=== PATIENT | male | born 1985 | race Caucasian/White ===

== ENCOUNTER 2023-09-01 06:07 | Inpatient (IN) | payer BC, SELFPAY ==
[2023-09-01] VITALS (10 sets, daily range): BP systolic 99–136; BP diastolic 45–71; BMI 28.2; BMI 27.3
[2023-09-01 02:26] LABS: % Basophils 0.6 % (0-2); % Eosinophils 2.4 % (0-6); % Immature Granulocytes 0.3 % (0-0.5); % Lymphocytes 29.9 % (20.5-51.1); % Monocytes 5.5 % (1.7-9.3); % Neutrophils 61.3 % (42.2-75.2); Absolute Basophils 0.1 10^3/uL (0-0.2); Absolute Eosinophils 0.2 10^3/uL (0-0.7); Absolute Lymphocytes 2.3 10^3/uL (1.2-3.4); Absolute Monocytes 0.4 10^3/uL (0.1-0.6); Absolute Neutrophils 4.8 10^3/uL (1.4-6.5); Hematocrit 39.3 % (39.0-52.0); Hemoglobin 14.2 g/dL (13.0-18.0); Mean Corp Hgb Conc. 36.1 g/dL (33.0-37.0); Mean Corpuscular Hgb 30.3 pg (27.0-31.0); Mean Platelet Volume 10.6 fL (7.4-10.4); Nucleated Red Blood Cells % 0 % (-); Platelet Count 163 10^3/uL (130-400); Red Blood Cell Count 4.68 10^6/uL (4.70-6.10); Red Cell Dist. Width 13.2 % (11.5-14.5); White Blood Cell Count 7.8 10^3/uL (4.8-10.8)
[2023-09-01 02:50] LABS: ALT (SGPT) 46 U/L (0-50); AST (SGOT) 42 U/L (17-59); Albumin 4.1 g/dl (3.5-5.0); Alkaline Phosphatase 55 U/L (38-126); Blood Urea Nitrogen 26 mg/dl (9-20); Calcium 9.4 mg/dl (8.4-10.2); Carbon Dioxide 25 mmol/L (22-30); Chloride 107 mmol/L (98-107); Estimated Creatinine Clearance 103 ml/min; Glucose 116 mg/dl (70-99); Potassium 4.1 mmol/L (3.5-5.1); Sodium 139 mmol/L (135-145); Total Bilirubin 0.5 mg/dl (0.2-1.3); Total Protein 6.4 g/dl (6.3-8.2); eGFR > 60.00
--- NOTE | 2023-09-01 02:57 | ED.GENMED ---
History of Present Illness
General
Chief Complaint: Breathing Problem
Source: patient
Exam Limitations: none
Time Seen by Provider: 09/01/23 02:11
Nursing documentation reviewed up to this point in time: agreed with
Travel History
Have you had any contact with someone who has COVID-19?: No
Do you have any symptoms of coronavirus? Fever > 100 degrees, chills, cough, shortness of breath, sore throat, loss of taste or smell, muscle aches, or headache?: Yes
Symptoms:: SOB, cough
History of Present Illness
History of Present Illness:
38-year-old male presents to the emergency department complaining of an episode at 11:30 PM of mid sternal chest pain that lasted about 3 seconds, and feeling of bubbling sound from his lungs. He felt hoarse, short of breath and winded with
speaking. He had an oxygen saturation of 90% on arrival.
Past History
Past History
ED Past Medical History: CVA (Right frontal CVA and left parietal occipital CVA slight left sided weakness), HTN, Hypercholesterolemia, Valvular disease (Aortic valve endocarditis May 2016), Other (hemorrhoids) and Other (Bilateral CVA related
to septic emboli from aortic valve endocarditis May 2016)
ED Past Surgical History: Cardiac (Bovine aortic valve replacement 06/06/2016 due to endocarditis.)
Social History
Tobacco: Non-smoker
Alcohol: Occasional (Rare alcohol)
Drug: None
Personal: Single
Living: with family
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
Family History
Family History: Other (reviewed and non-contributory)
Review of Systems
Review of Systems
Allergies reviewed?: Yes
All Other Systems: Not applicable
Constitutional: Reports no symptoms
EENT: Reports no symptoms
Respiratory: Reports trouble breathing
Cardiac: Reports chest pain
ABD/GI: Reports no symptoms
: Reports no symptoms
Musculoskeletal: Reports no symptoms
Skin: Reports no symptoms
Neurological: Reports no symptoms
Endocrine: Reports no symptoms
Hematologic/Lymphatic: Reports no symptoms
Psychiatric: Reports no symptoms
Phy Exam
Physical Exam
Physical Exam:
Physical Exam
General: Afebrile
Neck: supple. no meningeal signs. normal posterior pharynx
Heart: s1/s2 regular rate and rhythm, no murmur. equal radial
pulses.
HEENT: Pupils equal round reactive to light, EOMI
Lungs: no acute respiratory distress. clear bilaterally
Abdomen: normal bowel sounds. not tender. no CVAT
Neuro: alert and oriented. no focal neurological deficits cranial nerves II through XII intact
Skin: no rash
Psychiatric: well kept. interactive and cooperative
Extremities: no edema. no calf tenderness. negative homans. good distal pulses
Course
Orders/Labs/Results
Orders:
Orders
09/01/23 02:00
ECG [Electrocardiogram (*1)] Urgent
Reason for Study: Chest Pain
Other Reason for Exam: breathing difficuties
09/01/23 02:01
EKG- Treatment ONCE
Chest [CR Chest - 2 Views ] Urgent
Comment:
Reason For Exam: difficulty breathing
09/01/23 02:20
Complete Blood Count/With Diff Urgent
Comprehensive Metabolic Panel Urgent
NT-proBNP Urgent
Comment: ADD ON
Troponin I Urgent
09/01/23 02:56
Add On- LAB Urgent
Tests Added?: pro bnp
CT Chest Pe Study Urgent
Comment:
Reason For Exam: short of breath, hypoxia
09/01/23 05:37
Admit/Transfer Patient As Directed
Co-Sign Provider:
Level of Care: Inpatient admission
Assign to:: Telemetry
Physician / Group: htay
Diagnosis: CP, SoB, abn chest CT as below
Reason for Telemetry: Chest Pain syndromes
Date to Stop Telemetry: 09/03/23
Time to Stop Telemetry: 11:00
Reason for Hospitalization: bilateral ground glass opacitis and interlobar septal thickening may be due to
interstitial and alveolar pul edema of Uncler etiology
Expected length of stay greater than two midnights?: Yes
ELOS- Estimated Length of Stay in days: 3
I certify the patient meets the requirements for IP care: Yes
09/01/23 05:39
Code Status As Directed
Resuscitation Status: Full Code
COVID-19 Antigen Urgent
Source: Nasal Swab
Procalcitonin Urgent
PCT Algorithmm Indication: Respiratory
Blood Culture Q30M
TERRELL Source: Blood/Venous
Specimen Description:
Blood Culture Q30M
TERRELL Source: Blood/Venous
Specimen Description:
09/03/23 11:00
DC Protocol for Telemetry ONCE
Abnormal Lab Results
09/01/23
02:20
RBC 4.68 L 10^6/uL
(4.70-6.10)
MPV 10.6 H fL
(7.4-10.4)
BUN 26 H mg/dl
(9-20)
Glucose 116 H mg/dl
(70-99)
Troponin I 0.039 H* ng/ml
09/01/23 02:20
09/01/23 02:20
Vital Signs
Initial and Last Documented VS:
Initial Vital Signs
Temp Pulse Resp BP Pulse Ox
98.6 F 76 20 103/54 90
09/01/23 01:55 09/01/23 01:55 09/01/23 01:55 09/01/23 01:55 09/01/23 01:55
Last Documented Vital Signs
Temp Pulse Resp BP Pulse Ox
98.6 F 62 20 115/55 95
09/01/23 01:55 09/01/23 05:30 09/01/23 05:30 09/01/23 03:00 09/01/23 05:30
MDM/Problems Addressed
Differential Diagnosis Includes:
CHF, PE, ACS
MDM/Problems Addressed:
38-year-old male with shortness of breath, no chest pain in ED. CT chest shows no signs of PE, alveolar edema.
Chronic conditions affecting care: Cardiomyopathy
Acute Exacerbation and/or Progression of Chronic Illness: Cardiomyopathy
*Radiology
Radiology exam reviewed: radiology read reviewed (CT chest shows no signs of PE, bilateral groundglass infiltrate)
*Pulse Oximetry
Patient hypoxic: no
*EKG
Interpreted by ED Provider?: Yes
EKG Intrepretation Date: 09/01/23
EKG Intrepretation Time: 02:05
Interpretation: abnormal
Comparison EKG: changes noted
Heart Rate: 71
Rate: normal
Rhythm: sinus
[place]: normal axis
Interval: normal interval
QRS Pattern: left vent hypertrophy
Ischemia: no ischemia
*Environmental Specialist Interpretation
Rate: normal
Interpretation: normal
Heart Rate: 72
Rhythm: sinus
*Critical Care Note
Total Time (30-74mins, 75-104mins- exclusive of procedures): Not Applicable
Data Reviewed
Review of Other/Old Records Reveals: Labs
Source: patient
Patient Management
Discussion with other providers: Hospitalist
Escalation/DeEscalation of care consider admission/obs:
Admit indicated
ED Attending Note
-
Portions of this chart may have been created with voice recognition software.� Occasional wrong word or��sound alike� substitutions may have occurred due to the inherent limitations of voice recognition software.
Discharge Plan
Departure
Patient Disposition: Admit
Date of Disposition: 09/01/23
Time of Disposition: 05:11
Admit to: IMU
Presentation/result/management discussed w/ accepting MD/DO: Hospitalist
Patient with high blood pressure during this ER visit?: No
Condition: Good
Discharge Problem:
Ground glass opacity present on imaging of lung, Hypoxia
Interventions
Interventions:
*Risk Screen - Suicide Last Done: 09/01/23 01:55
*General Assessment Last Done: 09/01/23 01:55
*Neglect/Abuse Screening Last Done: 09/01/23 01:55
ED- Fall Risk Assessment Last Done: 09/01/23 01:55
*ED COVID-19 Vaccine History Last Done: 09/01/23 01:55
ED- Cardiac Assessment Last Done: 09/01/23 02:29
ED- Pulmonary Assessment Last Done: 09/01/23 02:29
[2023-09-01 03:06] LABS: Troponin I 0.039 ng/ml
[2023-09-01 03:41] LABS: NT-proBNP 1070 pg/ml
--- NOTE | 2023-09-01 05:32 | HPS.HSE ---
Family Physician
-
Family Physician:
Chief Complaint
-
CP, SoB
History of Present Illness
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
Associated with SoB
POx low 90s with sitting
Medical History
Past Medical History
Past Medical History: Reports Other
Additional Past Medical History:
Bacteremia (Streptococcus mitis/oralis) Prosthetic valve endocarditis (bioprosthetic) Hx prior aortic valve endocarditis requiring valve replacement (2016; at [facility]) Bioprosthetic aortic valve replacement Prediabetes Transaminitis CVA (Right frontal
CVA and left parietal occipital CVA slight left side)
Past Surgical History: Reports Other
Additional Past Surgical History:
Cardiac (Bovine aortic valve replacement 06/06/2016 due to endocarditis.)
Social History
Tobacco: Non-smoker
Alcohol: Occasional
Personal: Single
Family History
Family History: Not pertinent
Allergies / Home Medications
Allergies reflects when Allergies were last updated in [employer].
Home Medications with original date entered in [employer]
Allergy/Medication List:
Allergies
Allergy/AdvReac Type Severity Reaction Status Date / Time
No Known Allergies Allergy Verified 09/01/23 02:24
Home Medications
atorvastatin 40 mg tablet 40 mg PO DAILY High Cholesterol 10/29/16
magnesium oxide 400 mg PO DAILY Electrolyte Repletion 10/29/16
metoprolol tartrate 25 mg tablet 12.5 mg PO BID Blood Pressure 10/29/16
ascorbic acid (vitamin C) 500 mg tablet (Vitamin C) 1,000 mg PO DAILY Supplement 06/26/21
levetiracetam 500 mg tablet 500 mg PO BID@0800,1300 Seizures 06/26/21
multivitamin with folic acid 400 mcg tablet (Tab-A-Miki) 1 tab PO DAILY Supplement 06/26/21
Review of Systems
-
Constitutional: Reports No Symptoms
EENT: Reports No Symptoms
Respiratory: Reports Trouble Breathing
Cardiac: Reports Chest Pain
Abdomen/GI: Reports No Symptoms
: Reports No Symptoms
Musculoskeletal: Reports No Symptoms
Skin: Reports No Symptoms
Neurological: Reports No Symptoms
Endocrine: Reports No Symptoms
Hematologic/Lymphatic: Reports No Symptoms
Psych: Reports No Symptoms
Physical Exam
Vital Signs
Vital Signs
Temp Pulse Resp BP Pulse Ox
98.6 F 63 26 115/55 93
09/01/23 01:55 09/01/23 04:00 09/01/23 04:00 09/01/23 03:00 09/01/23 04:00
Physical Exam
General: Well Developed, Well Nourished and No Apparent Distress
HEENT: NormoCephalic, Anicteric and Moist mucous membranes
Respiratory: Clear; No Wheezes
Cardiac: S1/S2 and Regular Rhythm
Breast: Deferred by me
GI: Soft, Non Tender, Non Distended and Normal Bowel Sounds
Rectal: Deferred by Provider
Genito-urinary: Deferred by me
Musculoskeletal: No Clubbing, No Cyanosis and No Edema
Skin: Warm
Neuro: AO x 3
Psych: Calm
Laboratory Results
-
09/01/23 02:20
09/01/23 02:20
Laboratory Results
Total Bilirubin 0.5 mg/dl (0.2-1.3) 09/01/23 02:20
AST 42 U/L (17-59) 09/01/23 02:20
ALT 46 U/L (0-50) 09/01/23 02:20
Alkaline Phosphatase 55 U/L (38-126) 09/01/23 02:20
Troponin I 0.039 ng/ml H* 09/01/23 02:20
Data Reviewed
-
CT Scan: Report Reviewed by me
Medical Tests (Nuc Med, Echo, EKG etc): Report Reviewed by me
Lab Data: Labs Reviewed by me
Old Records: Reviewed
Impression/Plan
-
Reviewed VS: afebrile, borderline hypotension HR low 60s RR 26 POx low 90s on RA
Data
Nl CBC
BUN 26
Cr 1.1
eGFR > 60
TPNI 0.039
pro BNP 1070
Pending PCT
CTA chest w IV contrast
No PE. No thoracic aneurysm or dissection
AoV prothesis
Bilateral ground glass opacitis and interlobar septal thickening may n[be due to interstitial and alveolar puledema
CM without pericardial effusion
EKG report
NORMAL SINUS RHYTHM
LEFT ATRIAL ENLARGEMENT
RIGHTWARD AXIS
LEFT VENTRICULAR HYPERTROPHY WITH QRS WIDENING AND REPOLARIZATION ABNORMALITY
ABNORMAL ECG
WHEN COMPARED WITH ECG OF 26-DEC-2022 21:41,SIGNIFICANT CHANGES HAVE OCCURRED
12/27/22 TTE
LVEF 70-75
-Small echodensity on the anterior mitral valve leaflet, which was seen before on previous study. Moderate, eccentric MR
27 mm bioprosthetic aortic valve with peak/mean gradients of 51/35 mmHg.
- Mild to moderate paravalvular aortic regurgitation (PHT = 383 ms).
-Mild to moderate tricuspid regurgitation. Estimated pulmonary artery pressure
of 25-30 mmHg.
-Sinus of Valsalva 3.9 cm. Ascending aorta is 4.1 cm.
- No significant change in overall cardiac function since the prior study of
06/27/2019. Transvalvular aortic gradients have slightly increased (previous
peak/mean gradients were 34/21 mmHg).
Last hospitalist admission: 12/27/22 - 12/29/22
Dx; Fever possibly viral versus tick related illness treated PO Doxycycline for 2 weeks
ASSESSMENT & PLAN
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
Abn TPNI - NMITE vs NSTEMI
Mildly eleavted proBNP
- Trend TPNI
- cont. Metoprolol
- CBC card consult
CTC show bilateral ground glass opacitis and interlobar septal thickening may be due to interstitial and alveolar pul edema
Uncler etiology
- check pro BNP
- check PCT
- check Covid
- O2 support ot keep POx > 94
- Pul consult
Acute tachypnea and marginal hypoxia on RA
Afebrile and normal WCC
HX prosthetic AoV endocarditis
HX Streptococcus mitis/oralis bacteremia in Jun 2021
Hx prior aortic valve endocarditis requiring valve replacement (2016; at [facility])
Bioprosthetic aortic valve replacement
- BCx x 2 in 30mins
- Observing off ABx
- ID consult
Reported Gurgling noise in the chest - spontaneously resolved
HX septic embolic stroke
- cont Lopressor and aspirin
- cont. Keppra
DVT prophylaxis with Lovenox
Full code
Ip TLM
[2023-09-01 06:02] LABS: COVID-19 Antigen Negative (Negative)
[2023-09-01 06:23] LABS: Procalcitonin < 0.05 ng/ml (0.0-0.25)
--- NOTE | 2023-09-01 07:15 | EDRN ---
the pt was received from the previous shift coordinator RN, the pt is resting in stretcher in the lowest position, side rails up x2, call copeland within reach, HOB elevated, no s/s of distress, no c/o chest pain, no c/o SOB, VS WNL, NSR in the 80's, 98% on
2L NC, awaiting for a bed for the pt
--- NOTE | 2023-09-01 07:32 | EDRN ---
this RN called the receiving unit and notified them that paper report was going to be tubed up
--- NOTE | 2023-09-01 07:45 | EDRN ---
the pt pressed the call copeland and this RN entered the pts room, the pt stated that he needed to use the bathroom, the pt was able to ambulate to the bathroom and back to the stretcher with no issues, the pt is resting in stretcher in the lowest
position, rails up x2, call copeland within reach, HOB elevated, the pts belongings are packed up and the pt is ready to go upstairs
[2023-09-01] MEDS: LIPITOR PO (09:20)
[2023-09-01] MEDS: KEPPRA 500 MG PO ×2 (09:21→14:02)
[2023-09-01] MEDS: LOPRESSOR 12.5 MG PO ×2 (09:21→20:29)
--- NOTE | 2023-09-01 10:14 | CON.CAR ---
Addendum entered and electronically signed by Seferino Seymour MD 09/01/23 13:08:
I saw and examined the patient.
The [employer]'s note was reviewed and I agree with the note.
Comment: 38 y/o pt followed by Dr. Galiciaated with [facility] . He has prior history of endocarditis and bio AVR in 2015. He was seen in 2017 and new CVA . He is here after an episode of chest pain yesterday evening. He tells me he was getting
ready to go to bed and that is when he felt this. That lasted less than 10 seconds and had some associated ' bubbling' in his chest and decided to present to the ED. He also has no other significant anginal symptoms and tells me he ran 2 miles
yesterday. He does have a significant history of aortic valve replacement and his troponin is positive here. Thus, I discussed with him heart catheterization on Sunday and TTE then as well. He is agreeable to this.
-Heparin drip, aspirin, lipid profile
-TTE Sunday heart catheterization Sunday
Original Note:
Consultation
Consultation Request
Date/Time Consultation Requested: 09/01/2023 0800
Date/Time Consultation Performed: 09/01/2023 0930
Requesting Provider: 09/01/23 1000
Performing Provider: Dr. Seymour
Reason for Consultation: CP
Medical History
-
Chief Complaint: CP
History of Present Illness:
38 y/o pt followed by Dr. Galiciaated with [facility] . He has prior history of endocarditis and bio AVR in 2015. He was seen in 2017 and new CVA . ALEJANDRO here with concern for MV vegetation ( blood cultures at that time were negative)and pt was
transferred to [place]. He returned to in 12/2022 with fevers. ID consulted, BCX were negative . Treated for viral illness vs tick related illness with doxy for 2 weeks. States he saw Dr. Hodge in Jul 2022 and was told things are stable. He runs
2 miles most days. Last run was yesterday without any issues. 08/31/23 1030-11 started with chest pressure and bubbling in chest. He thinks bubbling was from his stomach. Denies eating close to that time. It did not radiate. No SOB associated. He
thinks lasted 30min. Did not have it in ER. Denies recurrent symptoms this am. Troponin was abnormal and we are consulted.
Past Medical History
Past Medical History: Other (AVR 2016, MR, CVA, seizures ,prediabetes)
Past Surgical History: Other ( bio AVR 2015)
Social History
Tobacco: Non-Smoker
Alcohol: Occasional
Drug: None
Living: With Family
Family History
Family History: Reviewed & Not Pertinent
Allergies / Home Medications
Allergy/AdvReac Type Severity Reaction Status Date / Time
No Known Allergies Allergy Verified 09/01/23 02:24
Medication Instructions Recorded Confirmed Type
atorvastatin 40 mg tablet 40 mg PO DAILY High Cholesterol 10/29/16 09/01/23 History
magnesium oxide 400 mg PO DAILY Electrolyte 10/29/16 09/01/23 History
Repletion
metoprolol tartrate 25 mg tablet 12.5 mg PO BID Blood Pressure 10/29/16 09/01/23 History
ascorbic acid (vitamin C) 500 mg 1,000 mg PO DAILY Supplement 06/26/21 09/01/23 History
tablet (Vitamin C)
levetiracetam 500 mg tablet 500 mg PO BID@0800,1300 Seizures 06/26/21 09/01/23 History
multivitamin with folic acid 400 1 tab PO DAILY Supplement 06/26/21 09/01/23 History
mcg tablet (Tab-A-Miki)
Review of Systems
-
History Source: Patient
Constitutional: No Symptoms
EENT: No Symptoms
Respiratory: No Symptoms
Cardiac: Chest Pain ( chest pressure last pm )
Abdomen/GI: Other (bubbling last pm )
: No Symptoms
Musculoskeletal: No Symptoms
Physical Exam
Vital Signs
Temp Pulse Resp BP Pulse Ox
98.1 F 86 16 136/71 98
09/01/23 07:15 09/01/23 07:15 09/01/23 07:15 09/01/23 07:15 09/01/23 07:15
Lab Results
09/01/23 02:20
09/01/23 02:20
Troponin I 0.090 ng/ml H* D 09/01/23 09:08
Emv-C-Clcogiragqg Pept 1070 pg/ml 09/01/23 02:20
Physical Exam
General: Well Developed and No Apparent Distress
HEENT: Normocephalic and Moist Mucous Membranes
Respiratory: Clear
Cardiac: S1/S2, Regular Rhythm and Murmur (3/6 AIDA throughout )
Breast: Deferred by me
GI: Soft, Non Distended and Normal Bowel Sounds
Rectal: Deferred by Provider
Musculoskeletal: No Edema
Skin: Warm and Dry
Neuro: AO x 3
Psych: Calm
Impression / Plan
-
Chest pain :
-No current CP
-trend troponin
-abn EKG - repeat this am
-pt states no OP stress or LHC since his bio AVR
Bio AVR:
-follows with DR. Hodge at [facility] saw him 07/2023 and was stable
-Echo 12/2022 here EF 70-75,There is small echodensity on the anterior mitral valve leaflet, which was seen before on previous study. Moderate, eccentric mitral regurgitation.27 mm bioprosthetic aortic valve with peak/mean gradients of 51/35 mmHg.
Mild to moderate paravalvular aortic regurgitation (PHT = 383 ms).- to moderate tricuspid regurgitation. Estimated pulmonary artery pressure
of 25-30 mmHg.Sinus of Valsalva 3.9 cm. Ascending aorta is 4.1 cm.
Prior CVA:
-asa/statin
Seizures:
-keppra/neuro
Data Reviewed
-
EKG: Tracing Personally Visualized and interpreted (NSR 63 bpm, LVH)
Radiology: Report Reviewed by me (CT chest 09/01/23 no dissection, no pE, There is mild cardiomegaly with patchy groundglass airspace disease in both lungs which may be mild pulmonary edema or mild inflammatory airspace disease)
Medical Tests (Nuc Med, Echo etc): Report Reviewed by me (Echo as above )
Labs: Labs Reviewed by me, Discussed with Physician and Discussed with Patient
Old Records: Reviewed (Previous admission records)
[2023-09-01 11:41] LABS: Glycohemoglobin (HgbA1c) 5.3 % (4.0-5.6)
--- NOTE | 2023-09-01 11:56 | CON.ID ---
Consultation
-
Date/Time Consultation Requested: 09/01/2023, 0816
Date/Time Consultation Performed: 09/01/2023, 1200
Requesting Provider: Dr. Roderick Joseph
Performing Provider: Dr. Karina Michaels
Reason for Consultation: Chest pain, hx bio-prosthetic AV endocarditis
Chief Complaint / Past History
Chief Complaint
Chest pain
History of Present Illness
38 year old male with history of [place] AV IE s/o bio-AVR 2015, S. mitis bio-AVR IE (06/2021) s/p 6 weeks IV ceftriaxone, who experienced chest pressure last night. He also noted gurgling sound during breathing. He got worried and came to ED. No
fevers/chills. No COLLIER. No URI sxs. No N/V/D. Last dental work was 4 months ago which he took prophylactic antibiotic. The gurgling sound on chest has resolved. Otherwise feels well. He runs everyday.
Past History
Additional Past Medical History:
bicuspid AV endocarditis, CVA/septic emboli, seizure s/p bio-AVR 06/06/2016 (at [facility])
Strep mitis bioprosthetic AV endocarditis 06/24/2021 s/p 6 weeks ceftriaxone.
Allergy History:
No Known Allergies Allergy (Verified 09/01/23 02:24)
Medications Reviewed: Yes
Current Antibiotics:
none
Social History
Tobacco: Non-Smoker
Alcohol: None
Drug: None
Personal: Single
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
Family History
Family History: Not Pertinent
Review of Systems
Review of Systems
General: Negative Fever, Chills or Change in Appetite
HEENT: Negative Stiff Neck, Sinus Problems, Headache or Pharyngitis
Respiratory: Negative Dyspnea or Cough
Gasteroenterology: Other (no diarrhea); Negative Nausea or Vomiting
Genital / Urological: Negative Dysuria or Flank Pain
Endocrine: Negative Weakness
Musculoskeletal: Negative Arthralgias
Skin / Hair / Nails: Negative Rash
Neurological: Negative Headache or Dizziness
All systems: All other systems were reviewed and were negative
Vital Signs
Temp Pulse Resp BP Pulse Ox
98.1 F 61 16 105/53 98
09/01/23 07:15 09/01/23 10:45 09/01/23 07:15 09/01/23 08:10 09/01/23 07:15
Physical Exam
Physical Exam
Constitutional: No Acute Distress, Well Developed and Comfortable
Head: Other (No frontal or maxillary sinus tenderness)
Eyes: No Conjunctival Hemorrhage and Sclera Anicteric
Oral: No Thrush and No Ulcers
Cardiovascular: Regular Rate, S1/S2 and Murmur
Pulmonary: Clear
Gastrointestinal: Soft, Non Tender, Non Distended and Normal Bowel Sounds
Genito-Urinary: Negative CVA Tenderness
Extremities: Negative Edema, Splinter Hemorrhage or Jan[place]ay Lesions
Skin: Negative Rash
Neurological: AO x 3
Lab / Diagnostic Study Results
09/01/23 02:20
09/01/23 02:20
Abs Immat Gran (auto) 0.0 10^3/uL (0-0.05) 09/01/23 02:20
Absolute Neuts (auto) 4.8 10^3/uL (1.4-6.5) 09/01/23 02:20
Absolute Lymphs (auto) 2.3 10^3/uL (1.2-3.4) 09/01/23 02:20
Absolute Monos (auto) 0.4 10^3/uL (0.1-0.6) 09/01/23 02:20
Absolute Basos (auto) 0.1 10^3/uL (0-0.2) 09/01/23 02:20
Immature Gran % 0.3 % (0-0.5) 09/01/23 02:20
Neutrophils % 61.3 % (42.2-75.2) 09/01/23 02:20
Lymphocytes % 29.9 % (20.5-51.1) 09/01/23 02:20
Monocytes % 5.5 % (1.7-9.3) 09/01/23 02:20
Eosinophils % 2.4 % (0-6) 09/01/23 02:20
Basophils % 0.6 % (0-2) 09/01/23 02:20
Procalcitonin < 0.05 ng/ml (0.0-0.25) 09/01/23 05:39
Microbiology Results
Micro:
09/01/23 05:39 Blood Culture - Pending
Blood/Venous
09/01/23 05:39 Blood Culture - Pending
Blood/Venous
09/01/[address]: There is no central pulmonary embolism. Imaging for small peripheral pulmonary emboli is limited.
There is mild cardiomegaly with patchy groundglass airspace disease in both lungs which may be mild pulmonary edema or mild inflammatory airspace disease.
09/01/23 CXR: negative
Assessment / Plan
# Chest pressure
# hx of bio-AVR IE (2021) treated with 6 weeks CTX
- At this time, no signs and symptoms of IE
-Observe off abx.
-Follow blood cx's.
--- NOTE | 2023-09-01 12:44 | CON.PUL ---
Consultation
Consultation Request
Date/Time Consultation Requested: 09/01/2023
Date/Time Consultation Performed: 09/01/2023
Requesting Provider:
Performing Provider: Dr. Tom Longoria`
Reason for Consultation: Abnormal CT chest
Medical History
-
History of Present Illness:
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 Came to the hospital complaining of chest
pressure. Also felt some gurgling sounds in his chest. Denies any fevers, chills, purulent sputum production. Denies choking or gasping episodes. Denies any nausea vomiting or diarrhea.
Currently pulmonary sounds have resolved.
Patient runs every day and has Exercise capacity.
Denies weight loss, night sweats or fevers.
Past Medical History
Past Medical History: Other (See assessment and plan section)
Social History
Tobacco: Non-smoker
Alcohol: None
Drug: None
Personal: Single
Employment: Employed (Works at a [employer])
Family History
Family History: Reviewed & Not Pertinent
Allergies / Home Medications
Allergies
Allergy/AdvReac Type Severity Reaction Status Date / Time
No Known Allergies Allergy Verified 09/01/23 02:24
Home Medications
Medication Instructions Recorded Confirmed Last Taken Type
atorvastatin 40 mg tablet 40 mg PO DAILY High Cholesterol 10/29/16 09/01/23 06/26/21 History
magnesium oxide 400 mg PO DAILY Electrolyte 10/29/16 09/01/23 06/26/21 History
Repletion
metoprolol tartrate 25 mg tablet 12.5 mg PO BID Blood Pressure 10/29/16 09/01/23 06/26/21 History
ascorbic acid (vitamin C) 500 mg 1,000 mg PO DAILY Supplement 06/26/21 09/01/23 06/26/21 History
tablet (Vitamin C)
levetiracetam 500 mg tablet 500 mg PO BID@0800,1300 Seizures 06/26/21 09/01/23 06/26/21 History
multivitamin with folic acid 400 1 tab PO DAILY Supplement 06/26/21 09/01/23 06/26/21 History
mcg tablet (Tab-A-Miki)
Review of Systems
-
History Source: Patient
All other systems: Negative unless noted
Vitals / Labs / Diagnostic Testing
Vital Signs
Temp Pulse Resp BP Pulse Ox
98.3 F 61 18 105/53 97
09/01/23 12:02 09/01/23 12:02 09/01/23 12:02 09/01/23 08:10 09/01/23 12:02
Lab Data
09/01/23 02:20
09/01/23 02:20
Diagnostic Testing:
Physical Exam
-
HEENT: Normocephalic
Cardiovascular: S1/S2
Respiratory: Clear and Non-Labored Respirations
GI: Soft and Non Distended
Neurology: Awake, Alert, Oriented and No Motor Deficits
Skin: Warm
General: Comfortable
Assessment
-
Abnormal CT chest: Unclear etiology. Doubt infectious in etiology.
Negative procalcitonin
Afebrile without leukocytosis
09/01/[address]:�Reviewed, there is no central pulmonary embolism. Imaging for small peripheral pulmonary emboli is limited.
There is mild cardiomegaly with patchy groundglass airspace disease in both lungs which may be mild pulmonary edema or mild inflammatory airspace disease.
Chest pain/gurgling of the chest: Currently resolved
Mildly increased troponin/increased proBNP 1070
EKG: Normal sinus rhythm/left atrial lodgment/left ventricular hypertrophy with QRS widening. Anteroseptal infarct age undetermined.
Conditions present prior admission:
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
History of aortic valve replacement due to infective endocarditis 2016
Prior history of CVA/septic emboli and seizures
-
Echo 12/2022-report reviewed, EF 70-75,There is small echodensity on the anterior mitral valve leaflet, which was seen before on previous study. Moderate, eccentric mitral regurgitation.27 mm bioprosthetic aortic valve with peak/mean gradients of
51/35 mmHg. Mild to moderate paravalvular aortic regurgitation (PHT = 383 ms).- to moderate tricuspid regurgitation. Estimated pulmonary artery pressure
of 25-30 mmHg.Sinus of Valsalva 3.9 cm. Ascending aorta is 4.1 cm.
Assessment and plan:
Abnormal CT chest with mild patchy bilateral groundglass opacities.
Currently mostly asymptomatic from the pulmonary perspective chest pain and chest gurgling has resolved.
As of yesterday patient states that he had usual functional capacity, he ran for exercising as usual.
-
No pleural effusions, no interstitial changes, no mediastinal lymph nodes.
With increased proBNP mild increased troponins rule out cardiac etiology/mild pulmonary edema.
So far no evidence for infection, observe off antibiotics.
Changes not typical for interstitial lung disease.
I agree with repeat echocardiogram.-Cardiology correspondence reviewed.
Trend troponins
-
Will follow.
[2023-09-01] MEDS: LOW STRENGTH ASPIRIN 324 MG PO (12:52)
[2023-09-01 13:23] LABS: APTT 30.4 Sec (23.4-35.0)
[2023-09-01 13:47] LABS: Troponin I 0.117 ng/ml
[2023-09-01] MEDS: HEPARIN 4000 UNITS IV (14:00)
[2023-09-01] MEDS: HEPARIN 25000 UNITS/250 ML IV (14:04)
--- NOTE | 2023-09-01 14:55 | W.PN.HOSP.TC ---
Today's Communication/Plan
-
see outlined
Assessment / Plan
Assessment / Plan
Assessment:
Chest pain
- resolved
- trend trops; currently .117
- continue BB/ASA
- continue Statin; check lipids
- continue IV heparin
- Cath Sunday
GGO abnormality on CT
- CT: mild patchy bilateral ground-glass opacities
- Pulm evaluated, no specific intervention currently
- repeat CT outpatient with follow up
- BNP 1090; check Echo
HX prosthetic AoV endocarditis
HX Streptococcus mitis/oralis bacteremia� in Jun 2021
Hx prior aortic valve endocarditis requiring valve replacement (2015; at [facility])
Bioprosthetic aortic valve replacement
- follow BCx
- ID following; no concern for IE
HX septic embolic stroke
- continue ASA/Statin
DVT ppx: IV heparin
Code: Full
Anticipated Discharge: > 48 hours
Subjective/Interval History
-
Date of Service: September 01, 2023
denies any cp or sob
Objective Data
-
Labs:
Laboratory Results
09/01/23 09/01/23
13:04 20:15
APTT 30.4 Pending
Vital Signs:
Vital Signs
Temp Pulse Resp BP Pulse Ox
98.3 F 61 18 105/53 97
09/01/23 12:02 09/01/23 12:02 09/01/23 12:02 09/01/23 08:10 09/01/23 12:02
Physical Exam
-
General: No Apparent Distress
HEENT: Normocephalic and Atraumatic
Respiratory: Negative Wheezes or Rales
Cardiac: Regular Rhythm, S1/S2 and Murmur
GI: Soft and Nontender
Musculoskeletal: No Edema
Neuro: AO x 3
Psych: Calm
Data Reviewed
-
Total Time Spent with Patient (in minutes): 45
Labs: Labs Reviewed by me
[2023-09-01 17:35] LABS: Troponin I 0.096 ng/ml
[2023-09-02] VITALS (7 sets, daily range): BP systolic 105–118; BP diastolic 46–66; BMI 27.3
[2023-09-02] MEDS: HEPARIN 25000 UNITS/250 ML IV ×2 (04:07→17:48)
[2023-09-02 04:27] LABS: Hematocrit 43.5 % (39.0-52.0); Mean Corp Hgb Conc. 34.5 g/dL (33.0-37.0); Mean Corpuscular Hgb 29.8 pg (27.0-31.0); Mean Corpuscular Volume 86.5 fL (80.0-94.0); Mean Platelet Volume 10.9 fL (7.4-10.4); Platelet Count 161 10^3/uL (130-400); Red Blood Cell Count 5.03 10^6/uL (4.70-6.10); Red Cell Dist. Width 13.2 % (11.5-14.5); White Blood Cell Count 7.8 10^3/uL (4.8-10.8)
[2023-09-02 04:39] LABS: APTT 48.9 Sec (23.4-35.0)
[2023-09-02 05:03] LABS: ALT (SGPT) 41 U/L (0-50); AST (SGOT) 26 U/L (17-59); Albumin 3.9 g/dl (3.5-5.0); Alkaline Phosphatase 55 U/L (38-126); Blood Urea Nitrogen 19 mg/dl (9-20); Calcium 8.8 mg/dl (8.4-10.2); Carbon Dioxide 24 mmol/L (22-30); Chloride 111 mmol/L (98-107); Estimated Creatinine Clearance 113 ml/min; Glucose 110 mg/dl (70-99); HDL Cholesterol 53 mg/dl; LDL Cholesterol, Calculated 68 mg/dl; Potassium 4.1 mmol/L (3.5-5.1); Sodium 137 mmol/L (135-145); Total Bilirubin 0.8 mg/dl (0.2-1.3); Total Cholesterol 134 mg/dl (50-199); Total Protein 6.1 g/dl (6.3-8.2); Triglyceride 66 mg/dl (10-149); Very Low Density Lipoprotein 13 mg/dl (0-30); eGFR > 60.00
--- NOTE | 2023-09-02 05:23 | PTCARENOTE ---
Pt w/o complaints this shift. POC discussed - pt verbalized understanding. heparin gtt running as documented.
--- NOTE | 2023-09-02 08:12 | W.PN.CD ---
Today's Communication / Plan
-
heparin gtt, aspirin, NPO after midnight, and cath tomorrow
Impression / Plan
-
38 y/o pt followed by Dr. Hodge�associated with [facility] . He has prior history of endocarditis and bio AVR in 2015. He was seen in 2017 and new CVA .� He is here after an episode of chest pain evening of August 31, 2023.
Chest pain :
-Troponin peaked at ~.11
- aspirin 81 mg
- heparin gtt, npo after midnight, cath tomorrow
- TTE tomorrow'
- statin
Bio AVR:
-follows with DR. Hodge at [facility] saw him 07/2023 and was stable
-Echo 12/2022 here EF 70-75,There is small echodensity on the anterior mitral valve leaflet, which was seen before on previous study. Moderate, eccentric mitral regurgitation.27 mm bioprosthetic aortic valve with peak/mean gradients of 51/35 mmHg.
Mild to moderate paravalvular aortic regurgitation (PHT = 383 ms).- to moderate tricuspid regurgitation. Estimated pulmonary artery pressure
of 25-30 mmHg.Sinus of Valsalva 3.9 cm. Ascending aorta is 4.1 cm.
Prior CVA:
-asa/statin
Seizures:
-keppra/neuro
Physical Exam
Vital Signs/Labs
Vital Signs
Temp Pulse Resp BP Pulse Ox
98 F 62 20 105/58 98
09/02/23 07:33 09/02/23 05:00 09/02/23 07:33 09/02/23 04:03 09/02/23 07:33
09/01/23 09/02/23 09/03/23
06:59 06:59 06:59
Actual Weight 213 lb 10.047 oz 207 lb 3.752 oz
09/02/23 04:13
09/02/23 04:13
APTT 48.9 Sec (23.4-35.0) H 09/02/23 04:13
Triglycerides 66 mg/dl (10-149) 09/02/23 04:13
LDL Cholesterol, Calc 68 mg/dl 09/02/23 04:13
VLDL Cholesterol, Calc 13 mg/dl (0-30) 09/02/23 04:13
HDL Cholesterol 53 mg/dl 09/02/23 04:13
09/01/23
02:20
Tkd-I-Fftdodrpsbn Pept 1070
LAB Results
09/01/23 09/01/23 09/01/23
02:20 09:08 11:16
Troponin I 0.039 H* 0.090 H* D Cancelled
09/01/23 09/01/23 09/01/23
13:04 14:16 16:51
Troponin I 0.117 H* D Cancelled 0.096 H*
Physical Exam
Constitutional: No acute distress
EENT: Anicteric
Cardiovascular: Rhythm & rate is regular and Pedal edema is absent
Respiratory: Respiratory effort normal and Lungs clear to auscul.
GI: Soft
Neuro/Psych: AO x 3
Data Reviewed
-
Date of Service: September 02, 2023
EKG: Tracing Personally Visualized and interpreted
Labs: Labs Reviewed by me
[2023-09-02] MEDS: KEPPRA 500 MG PO ×2 (08:49→12:29)
[2023-09-02] MEDS: LOPRESSOR 12.5 MG PO ×2 (08:49→19:33)
[2023-09-02] MEDS: LIPITOR 40 MG PO (08:49)
[2023-09-02] MEDS: LOW STRENGTH ASPIRIN 81 MG PO (08:50)
[2023-09-02 11:38] LABS: APTT 65.1 Sec (23.4-35.0)
--- NOTE | 2023-09-02 12:17 | W.PN.HOSP.TC ---
Today's Communication/Plan
-
IV heparin
Cath and TTE Sunday
Assessment / Plan
Assessment / Plan
Assessment:
Chest pain
- resolved
- trend trops; currently .117
- continue BB/ASA
- continue Statin; check lipids
- continue IV heparin - requires intensive monitoring
- Cath Sunday
GGO abnormality on CT
- CT: mild patchy bilateral ground-glass opacities
- Pulm evaluated, no specific intervention currently; repeat CT outpatient with follow up
- BNP 1090; check Echo Sunday
HX prosthetic AoV endocarditis
HX Streptococcus mitis/oralis bacteremia� in Jun 2021
Hx prior aortic valve endocarditis requiring valve replacement (2015; at [facility])
Bioprosthetic aortic valve replacement
- follow BCx
- ID following; no concern for IE
HX septic embolic stroke
- continue ASA/Statin
DVT ppx: IV heparin
Code: Full
Anticipated Discharge: 24 - 48 hours
Subjective/Interval History
-
Date of Service: September 02, 2023
denies any chest pain or SOB
Objective Data
-
Labs:
Laboratory Results
09/02/23 09/02/23 09/02/23
04:13 11:17 18:00
WBC 7.8
Hgb 15.0
Hct 43.5
Plt Count 161
APTT 48.9 H 65.1 H Pending
Sodium 137
Potassium 4.1
Chloride 111 H
Carbon Dioxide 24
BUN 19
Creatinine 1.0
Glucose 110 H
Calcium 8.8
Total Bilirubin 0.8
AST 26
ALT 41
Alkaline Phosphatase 55
Vital Signs:
Vital Signs
Temp Pulse Resp BP Pulse Ox
98.2 F 64 18 112/46 98
09/02/23 11:44 09/02/23 11:44 09/02/23 11:44 09/02/23 11:44 09/02/23 08:30
I&O
09/01/23 09/02/23 09/03/23
06:59 06:59 06:59
Intake Total 600 / 600
Balance 600 / 600
Physical Exam
-
General: No Apparent Distress
HEENT: Normocephalic and Atraumatic
Respiratory: Negative Wheezes or Rales
Cardiac: Regular Rhythm and S1/S2
GI: Soft and Nontender
Genito-urinary: No Costovertebral Tender
Neuro: AO x 3
Psych: Calm
Data Reviewed
-
Total Time Spent with Patient (in minutes): 45
Labs: Labs Reviewed by me
[2023-09-02 18:21] LABS: APTT 65.7 Sec (23.4-35.0)
--- NOTE | 2023-09-02 20:46 | PTCARENOTE ---
Pt received start of shift, HR SR 60s-70s. Pt ambulating in room independently. Heparin infusing at 2000 units/hr. Educated pt on NPO status at 0000. Pt wondering what time he will go for cath, but states no other questions regarding cath procedure
tomorrow. Pt denies any CP, SOB, or lightheadedness/dizziness at this time. Informed to notify RN if any changes, call copeland within reach.
[2023-09-03] VITALS (16 sets, daily range): BP systolic 91–116; BP diastolic 30–92; BMI 27.1
[2023-09-03 01:04] LABS: APTT 79.5 Sec (23.4-35.0)
--- NOTE | 2023-09-03 06:11 | W.PN.PUL3 ---
Today's Communication / Plan
-
Catheterization pending today
Echocardiogram pending
Remains on heparin
Assessment
-
Abnormal CT chest: Unclear etiology. Doubt infectious in etiology.
Negative procalcitonin
Afebrile without leukocytosis
09/01/[address]:�Reviewed, there is no central pulmonary embolism. Imaging for small peripheral pulmonary emboli is limited.
There is mild cardiomegaly with patchy groundglass airspace disease in both lungs which may be mild pulmonary edema or mild inflammatory airspace disease.
Chest pain/gurgling of the chest: Currently resolved
Mildly increased troponin/increased proBNP 1070
EKG: Normal sinus rhythm/left atrial lodgment/left ventricular hypertrophy with QRS widening. Anteroseptal infarct age undetermined.
Conditions present prior admission:
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
History of aortic valve replacement due to infective endocarditis 2015
Prior history of CVA/septic emboli and seizures
Assessment and plan:
At this time, patient is comfortable without complaints. Pulmonary symptoms have improved, not requiring oxygen
Chest exam is clear
I reviewed his CT imaging. Calcified right lower lobe nodule noted, likely granuloma
Patchy bilateral groundglass abnormalities
No obvious adenopathy
Moving forward
Continue with management primarily cardiac in nature
Do not suspect infectious process, did not suspect chronic interstitial process
Patient is on heparin drip, aspirin therapy
N.p.o., plan for catheterization today
Echocardiogram pending
Cardiology following
Further workup will depend on catheterization findings
Will follow.
Data:
Echo 12/2022-report reviewed, EF 70-75,There is small echodensity on the anterior mitral valve leaflet, which was seen before on previous study. Moderate, eccentric mitral regurgitation.27 mm bioprosthetic aortic valve with peak/mean gradients of
51/35 mmHg. Mild to moderate paravalvular aortic regurgitation (PHT = 383 ms).- to moderate tricuspid regurgitation. Estimated pulmonary artery pressure
of 25-30 mmHg.Sinus of Valsalva 3.9 cm. Ascending aorta is 4.1 cm.
Subjective Data
-
Date of Service:
Date of Service: September 03, 2023
Subjective:
Patient feels much improved. Denies chest pain, cough, hemoptysis, abdominal pain, nausea, emesis. On room air. Conversant
Objective Data
Data Reviewed
Vital Signs / I&O / Oxygen:
Vital Signs
Temp Pulse Resp BP Pulse Ox
98.5 F 64 16 109/59 96
09/03/23 03:57 09/03/23 03:57 09/03/23 03:57 09/03/23 03:57 09/03/23 03:57
Intake and Output
09/01/23 09/02/23 09/03/23
06:59 06:59 06:59
Intake Total 600 / 600
Balance 600 / 600
SaO2 96
Nasal Cannula flow liters per 2
minute
Physical Exam
General: Comfortable
HEENT: Normocephalic and Anicteric
Cardiovascular: S1-S2, Regular Rhythm, Murmur (n) and Rub (n)
Respiratory: Wheeze (n), Crackles (n), Rhonchi (n) and Non-Labored Respirations
GI: Soft, Non Distended and Non Tender
Neurology: Awake, Alert and No Motor Deficits
Skin: Cyanosis (n), Jaundice (n) and Rash (n)
Labs/Micro/Reports
Laboratory Results
09/02/23 09/02/23 09/03/23
11:17 17:58 00:28
APTT 65.1 H 65.7 H 79.5 H
Microbiology
09/01/23 05:39 Blood/Venous Blood Culture - Preliminary
No Growth in 48 hours- Final report to follow
09/01/23 05:39 Blood/Venous Blood Culture - Preliminary
No Growth in 48 hours- Final report to follow
[2023-09-03 06:47] LABS: Hemoglobin 14.9 g/dL (13.0-18.0); Mean Corp Hgb Conc. 35.5 g/dL (33.0-37.0); Mean Corpuscular Volume 84.7 fL (80.0-94.0); Platelet Count 157 10^3/uL (130-400); Red Blood Cell Count 4.96 10^6/uL (4.70-6.10); White Blood Cell Count 8.5 10^3/uL (4.8-10.8)
[2023-09-03 06:51] LABS: APTT 83.4 Sec (23.4-35.0)
[2023-09-03 07:04] LABS: ALT (SGPT) 59 U/L (0-50); AST (SGOT) 31 U/L (17-59); Albumin 3.8 g/dl (3.5-5.0); Alkaline Phosphatase 58 U/L (38-126); Blood Urea Nitrogen 16 mg/dl (9-20); Calcium 8.8 mg/dl (8.4-10.2); Carbon Dioxide 25 mmol/L (22-30); Chloride 109 mmol/L (98-107); Estimated Creatinine Clearance 113 ml/min; Glucose 100 mg/dl (70-99); Potassium 4.3 mmol/L (3.5-5.1); Sodium 135 mmol/L (135-145); Total Bilirubin 1.2 mg/dl (0.2-1.3); eGFR > 60.00
[2023-09-03] MEDS: HEPARIN 25000 UNITS/250 ML IV (07:40)
[2023-09-03] MEDS: LIPITOR 40 MG PO (07:45)
[2023-09-03] MEDS: LOW STRENGTH ASPIRIN 81 MG PO (07:45)
[2023-09-03] MEDS: KEPPRA 500 MG PO ×2 (07:49→14:02)
[2023-09-03] MEDS: LOPRESSOR 12.5 MG PO ×2 (07:49→19:31)
--- NOTE | 2023-09-03 07:51 | PTCARENOTE ---
Patient received from nightshift nurse. Patient is alert and oriented x4, pleasant. Denies pain/discomfort. NSR/SB. HR 50s-60s. BP 101/50. Audible heart tones. Palpable pulses. No edema. PIV maintained. Heparin gtt maintained at 2000 units/hr.
Recent PTT shows he is therapeutic x2. RA. Oxygen saturation 93%. Upon auscultation, lung sounds clear throughout. NPO since midnight for cath today. Hypoactive BS. Per patient, BM this AM. Voids spontaneously. Ambulates in room independently.
Awaiting cath procedure.
--- NOTE | 2023-09-03 08:43 | W.PN.CD ---
Today's Communication / Plan
-
Echocardiogram.
Cardiac catheterization today.
Impression / Plan
-
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
possibly tick borne illness), admitted with an episode of chest pain on the evening of 08/31/2023 with mildly elevated troponin.
#Atypical chest pain
-Described as a 'gurgling', now resolved.
-Troponin peaked at 0.117.
-EKG shows 1st degree AVB and RBBB (progressed from prior EKG) with anteroseptal ID, age undetermined.
-Continue aspirin, atorvastatin, heparin gtt, metoprolol.
-Echocardiogram pending.
-Cardiac catheterization today for clarification of coronary anatomy.
#Hx of infectious endocarditis/bioprosthetic SAVR
-Follows with DR. Hodge at [facility] saw him 07/2023 and was stable.
-Blood cultures show NGTD.
-TTE from 12/2022 shows moderate , mild/moderate PVL.
-Repeat echocardiogram is pending.
#Prior CVA
-Chronic, stable.
-Continue ASA/statin.
#Seizures:
-Chronic, stable.
-Levetiracetam/neurology follow up.
Subjective/Interval History:
No acute events.
No subjective complaints.
DATA:
CT Chest, 09/04/2023:
IMPRESSION:
There is no central pulmonary embolism.
Imaging for small peripheral pulmonary emboli is limited.
There is mild cardiomegaly with patchy groundglass airspace disease in both lungs which may be mild pulmonary edema or mild inflammatory airspace disease
TTE, 12/27/2022:
CONCLUSIONS
�-Left ventricular ejection fraction is 70-75%. Normal regional wall motion.
�-Normal right ventricular size and function.
�-There is small echodensity on the anterior mitral valve leaflet, which was
�seen before on previous study. Moderate, eccentric mitral regurgitation.
�-27 mm bioprosthetic aortic valve with peak/mean gradients of 51/35 mmHg. Mild
�to moderate paravalvular aortic regurgitation (PHT = 383 ms).
�-Mild to moderate tricuspid regurgitation. Estimated pulmonary artery pressure
�of 25-30 mmHg.
�-Sinus of Valsalva 3.9 cm. Ascending aorta is 4.1 cm.
�
�No significant change in overall cardiac function since the prior study of
�06/27/2019.� Transvalvular aortic gradients have slightly increased (previous
�peak/mean gradients were 34/21 mmHg).
Physical Exam
Vital Signs/Labs
Vital Signs
Temp Pulse Resp BP Pulse Ox
36.6 C 59 16 101/50 93
09/03/23 07:05 09/03/23 07:49 09/03/23 07:05 09/03/23 07:49 09/03/23 07:05
09/01/23 09/02/23 09/03/23
11:59 11:59 11:59
Actual Weight 94 kg 94 kg 93 kg
09/03/23 06:16
09/03/23 06:16
APTT 83.4 Sec (23.4-35.0) H 09/03/23 06:16
Triglycerides 66 mg/dl (10-149) 09/02/23 04:13
LDL Cholesterol, Calc 68 mg/dl 09/02/23 04:13
VLDL Cholesterol, Calc 13 mg/dl (0-30) 09/02/23 04:13
HDL Cholesterol 53 mg/dl 09/02/23 04:13
09/01/23
02:20
Dfo-W-Cckpsklottc Pept 1070
LAB Results
09/01/23 09/01/23 09/01/23
02:20 09:08 11:16
Troponin I 0.039 H* 0.090 H* D Cancelled
09/01/23 09/01/23 09/01/23
13:04 14:16 16:51
Troponin I 0.117 H* D Cancelled 0.096 H*
Physical Exam
Constitutional: No acute distress and Comfortable
EENT: Anicteric and Moist mucous membranes
Cardiovascular: Rhythm & rate is regular, Pedal edema is absent, JVD pressure is normal, Systolic murmur present and S1S2 is normal
Respiratory: Respiratory effort normal, Lungs clear to auscul., Wheeze Absent, Crackles Absent and Rhonchi Absent
GI: Soft, Distention absent, Flat, Non tender and Normal bowel sounds
Neuro/Psych: AO x 3
Data Reviewed
-
Date of Service: September 03, 2023
Medical Decision Making: Reviewed Test Results, Independent Historian Assessment, Test Interpretation and Review of Case with other Provider
EKG: Tracing Personally Visualized and interpreted and Report Reviewed by me
Echo: Report Reviewed by me
X-Ray/CT/US/MRI/NUC/PET: Image Personally Visualized and interpreted and Report Reviewed by me
Medical Tests (PFT, Pathology etc): Report Reviewed by me
Labs: Labs Reviewed by me
--- NOTE | 2023-09-03 11:49 | CM ---
Chart reviewed. Patient is independent of ADLS, lives alone in a [address], [address], on his parent's property, 0 DME. Patient currently with no discharge needs. CM to follow
--- NOTE | 2023-09-03 11:54 | W.PN.HOSP.TC ---
Today's Communication/Plan
-
ECHO
Cardiac cath today
Assessment / Plan
Assessment / Plan
Assessment:
Chest pain
- resolved
- trending down trops; peak .117
- continue BB/ASA
- continue Statin; check lipids
- continue IV heparin - requires intensive monitoring
- Cardiac cath today
GGO abnormality on CT
- CT: mild patchy bilateral ground-glass opacities
- Pulm evaluated, no specific intervention currently; repeat CT outpatient with follow up
- BNP 1090; check Echo today
HX prosthetic AoV endocarditis
HX Streptococcus mitis/oralis bacteremia� in Jun 2021
Hx prior aortic valve endocarditis requiring valve replacement (2016; at [facility])
Bioprosthetic aortic valve replacement
- follow BCx
- ID following; no concern for IE
HX septic embolic stroke
- continue ASA/Statin
DVT ppx: IV heparin
Code: Full
Anticipated Discharge: Today
Subjective/Interval History
-
Date of Service: September 03, 2023
No CP
No SOB
No N/V
Objective Data
-
Labs:
Laboratory Results
09/03/23 09/03/23
00:28 06:16
WBC 8.5
Hgb 14.9
Hct 42.0
Plt Count 157
APTT 79.5 H 83.4 H
Sodium 135
Potassium 4.3
Chloride 109 H
Carbon Dioxide 25
BUN 16
Creatinine 1.0
Glucose 100 H
Calcium 8.8
Total Bilirubin 1.2
AST 31
ALT 59 H
Alkaline Phosphatase 58
Vital Signs:
Vital Signs
Temp Pulse Resp BP Pulse Ox
97.9 F 71 16 101/50 93
09/03/23 07:05 09/03/23 09:00 09/03/23 07:05 09/03/23 07:49 09/03/23 08:00
I&O
09/02/23 09/03/23 09/04/23
06:59 06:59 06:59
Intake Total 600 / 600 80 / 80
Balance 600 / 600 80 / 80
Review of Systems
-
Constitutional: Denies Fever
EENT: Denies Sore Throat
Neuro: Denies Dizzy
Physical Exam
-
General: No Apparent Distress
HEENT: Moist Mucous Membranes
Respiratory: Clear to Auscultation
Cardiac: Regular Rhythm and S1/S2; Negative Tachycardic
GI: Soft
Neuro: AO x 3
Data Reviewed
-
Labs: Labs Reviewed by me
--- NOTE | 2023-09-03 12:55 | PTCARENOTE ---
Pt went to [facility]. Report given to RN. Heparin gtt stopped at 1255.
--- NOTE | 2023-09-03 13:38 | ITS.CL.CATH ---
[facility] - Catheterization
Cardiac Catheterization
Procedure Report:
CARDIAC CATHETERIZATION REPORT
Date of Procedure: 09/03/2023
Referring: Seferino Seymour M.D.
INDICATION: Prosthetic aortic valve, chest discomfort, abnormal troponin.
PROCEDURE:
1. Coronary angiography.
ACCESS:
6 [place] right radial artery.
CATHETERS:
1. 5 [place] JR4.
2. 5 [place] JL 4.
HEMODYNAMIC DATA
Weight (kg): 93.0
AO (s/d/x, mmHg): 98/57/76
LV (s/x mmHg): Not obtained.
LEFT VENTRICULOGRAPHY: Not performed.
CORONARY ANGIOGRAPHY
Dominance: Left.
Left Main: Large size, bifurcating vessel. There is no coronary artery disease.
LAD: Large size vessel giving rise to several small diagonals before wrapping around the apex of the heart. There is no coronary artery disease.
Ramus: Congenitally absent.
Circumflex: Large size, dominant vessel giving rise to 3 obtuse marginals then terminating as an LPDA. There is no coronary artery disease.
RCA: Small size, nondominant vessel. There is no coronary artery disease.
INTERVENTION(S)
None.
Closure Device: Vascular band.
Radiation (mGy): 328.67
DAP (cm2.Gy): 27.4128
Fluoroscopy time (minutes): 2.7
Sedation time (minutes): 21
CONCLUSIONS
1. Left dominant circulation with no coronary artery disease.
2. Bioprosthetic aortic valve in place.
RECOMMENDATIONS:
1. Expectant management after cardiac catheterization via right radial approach.
2. Limited weight bearing on the right wrist for one week.
3. Given recent discovery of bioprosthetic aortic valve vegetation, plan for ALEJANDRO tomorrow.
Copy to: Seferino Seymour M.D., TO Guzman
Bryan Baptiste, , FACC, FACP
--- NOTE | 2023-09-03 13:51 | PTCARENOTE ---
Addendum entered by Rona Gore RN 09/03/23 13:52:
Agree with previous bingo attendant. Pt AOx3, no complaints of pain or discomfort.
Original Note:
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 Right radial site CDI. Educated on restrictions and expected OOB time. Call [facility]eland within reach.
--- NOTE | 2023-09-03 15:42 | W.PN.UPDATE ---
Update Note
Progress Note Update
Transthoracic echocardiogram shows a fairly large echodensity on the ventricular aspect of the bioprosthetic valve. This may be present but underappreciated on the prior echocardiogram from December 2022. Regardless, it is larger today. Aortic
insufficiency has worsened to severe. There is now moderate mitral regurgitation.
Cardiac catheterization shows no coronary artery disease. EKG during this admission shows first-degree AV block with right bundle branch block. Electrocardiogram from February 2023 shows a normal GA interval and an incomplete right bundle branch
block. Obviously, progression of conduction delays concerning for abscess.
Given echocardiographic and EKG findings, I think it is appropriate to make the patient n.p.o. for ALEJANDRO tomorrow. The patient may require expedited removal of his bioprosthetic AVR.
CT surgery consult.
--- NOTE | 2023-09-03 15:48 | PTCARENOTE ---
Assumed care of pt from day RN. Pt received sleepy but arousable. VSS, CM shows NSR 60's, POX 99% on RA. Right radial band intact, site remains CDI with good CMS. He denies any pain or discomfort. Will continue to monitor closely.
--- NOTE | 2023-09-04 00:10 | PTCARENOTE ---
Pt received start of shift, HR 60s-70s SR w/ BBB. Pt in bed with parents at bedside. Pt expressed disappointment with news he will probably need further surgery. Educated pt and family on plan of care. Pt states they would like to go home for 'an
hour or two to get [his] computer and then come back' if he is to stay in the hospital until his next procedure. Educated pt on hospital policy. Pt denies any CP, SOB, or lightheadedness/dizziness at this time. Informed to notify RN if any changes,
call [facility] within reach.
[2023-09-04 05:24] VITALS: BP 103/47
[2023-09-04 05:44] VITALS: BMI 27.0
[2023-09-04 06:39] LABS: Hematocrit 41.1 % (39.0-52.0); Hemoglobin 14.4 g/dL (13.0-18.0); Mean Corpuscular Hgb 29.6 pg (27.0-31.0); Mean Corpuscular Volume 84.6 fL (80.0-94.0); Platelet Count 158 10^3/uL (130-400); Red Blood Cell Count 4.86 10^6/uL (4.70-6.10); Red Cell Dist. Width 13.1 % (11.5-14.5); White Blood Cell Count 7.7 10^3/uL (4.8-10.8)
[2023-09-04 07:00] LABS: ALT (SGPT) 64 U/L (0-50); AST (SGOT) 32 U/L (17-59); Albumin 3.7 g/dl (3.5-5.0); Alkaline Phosphatase 58 U/L (38-126); Blood Urea Nitrogen 19 mg/dl (9-20); Calcium 8.9 mg/dl (8.4-10.2); Carbon Dioxide 24 mmol/L (22-30); Chloride 109 mmol/L (98-107); Estimated Creatinine Clearance 103 ml/min; Glucose 89 mg/dl (70-99); Potassium 4.4 mmol/L (3.5-5.1); Sodium 135 mmol/L (135-145); eGFR > 60.00
--- NOTE | 2023-09-04 07:05 | W.PN.PUL3 ---
Today's Communication / Plan
-
Await ALEJANDRO
Possible CT surgery plans noted
We will follow as needed in ICU setting if needed
Call with questions in interim
Assessment
-
Abnormal CT chest: Unclear etiology. Doubt infectious in etiology.
Negative procalcitonin
Afebrile without leukocytosis
09/01/[address]:�Reviewed, there is no central pulmonary embolism. Imaging for small peripheral pulmonary emboli is limited.
There is mild cardiomegaly with patchy groundglass airspace disease in both lungs which may be mild pulmonary edema or mild inflammatory airspace disease.
Chest pain/gurgling of the chest: Currently resolved
Mildly increased troponin/increased proBNP 1070
EKG: Normal sinus rhythm/left atrial lodgment/left ventricular hypertrophy with QRS widening. Anteroseptal infarct age undetermined.
Conditions present prior admission:
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
History of aortic valve replacement due to infective endocarditis 2015
Prior history of CVA/septic emboli and seizures
Assessment and plan:
At this time, patient is comfortable without complaints. Pulmonary symptoms have improved, not requiring oxygen
Chest exam is clear
I reviewed his CT imaging. Calcified right lower lobe nodule noted, likely granuloma
Patchy bilateral groundglass abnormalities
No obvious adenopathy
Card CAth nl
Valvular dz, mobile density noted
ECHO with EF 64%, Mobile density on BP AV. Mild -Mod MR noted
Moving forward
Continue with management primarily cardiac in nature
Do not suspect infectious process, do not suspect chronic interstitial process
Await ALEJANDRO
Heparin is stopped
Remains on ASA
Echocardiogram pending
Cardiology following
CT surgery also following
Will continue to follow as needed for critic care needs depending on surgical plan
Data:
Echo 12/2022-report reviewed, EF 70-75,There is small echodensity on the anterior mitral valve leaflet, which was seen before on previous study. Moderate, eccentric mitral regurgitation.27 mm bioprosthetic aortic valve with peak/mean gradients of
51/35 mmHg. Mild to moderate paravalvular aortic regurgitation (PHT = 383 ms).- to moderate tricuspid regurgitation. Estimated pulmonary artery pressure
of 25-30 mmHg.Sinus of Valsalva 3.9 cm. Ascending aorta is 4.1 cm.
Subjective Data
-
Date of Service:
Date of Service: September 04, 2023
Subjective:
Pt with mild sob with ambulating this am. denies CP, N, V, Abd pain. Lying flat and conversant
Objective Data
Data Reviewed
Vital Signs / I&O / Oxygen:
Vital Signs
Temp Pulse Resp BP Pulse Ox
98 F 67 16 103/47 98
09/04/23 05:45 09/04/23 05:24 09/04/23 05:45 09/04/23 05:24 09/04/23 05:45
Intake and Output
09/03/23 09/04/23 09/05/23
06:59 06:59 06:59
Intake Total 1040 / 1040
Balance 1040 / 1040
SaO2 98
Nasal Cannula flow liters per 2
minute
Physical Exam
General: Comfortable
HEENT: Normocephalic and Anicteric
Cardiovascular: S1-S2, Regular Rhythm, Murmur (n) and Rub (n)
Respiratory: Wheeze (n), Crackles (n), Rhonchi (n) and Non-Labored Respirations
GI: Soft, Non Distended and Non Tender
Neurology: Awake, Alert and No Motor Deficits
Skin: Cyanosis (n), Jaundice (n) and Rash (n)
Labs/Micro/Reports
Lab Data
09/04/23 05:39
09/04/23 05:39
Microbiology
09/01/23 05:39 Blood/Venous Blood Culture - Preliminary
No Growth in 72 hours- Final report to follow
09/01/23 05:39 Blood/Venous Blood Culture - Preliminary
No Growth in 72 hours- Final report to follow
[2023-09-04 07:08] VITALS: BP 102/55
[2023-09-04] MEDS: LOPRESSOR 12.5 MG PO (07:45)
[2023-09-04] MEDS: LOW STRENGTH ASPIRIN 81 MG PO (07:45)
[2023-09-04] MEDS: KEPPRA 500 MG PO ×2 (07:46→13:42)
[2023-09-04] MEDS: LIPITOR 40 MG PO (07:46)
--- NOTE | 2023-09-04 08:32 | CONSULT.CT ---
Consultation
-
Date/Time Consultation Requested: 09/02
Date/Time Consultation Performed: 09/03
Requesting Provider: Dr Baptiste
Performing Provider: Indu Pineda for Dr. Rakesh Celis
Reason for Consultation: surgical evaluation for prosthetic aortic valve
Patient History
Physicians
Outpatient Clinical Research Director: Dr Rothman ([place])
Inpatient Clinical Research Director: Dr. Baptiste
History of Present Illness
38-year-old male admitted via the ED on 09/01/2023 for complaints of mid sternal chest pain that lasted about 3 seconds, and feeling of bubbling sound from his lungs.� He felt hoarse, short of breath and winded with speaking.� He had an
oxygen saturation of 90% on arrival. CTA chest ruled out PE. Maximum troponin 0.17 consistent with nonischemic myocardial injury. Echocardiogram performed 09/02 reported ejection fraction 64% with normal RV function and biatrial enlargement. A
mobile density was noted on noncoronary cusp with moderate to severe aortic insufficiency, moderate prosthetic valve stenosis with aortic valve gradients 54/31 mmHg. Ascending aorta 4.4 cm. No tricuspid regurgitation. Small echolucency seen on
the ventricular side of the anterior leaflet. Mild to moderate eccentric mitral regurgitation. Blood cultures form 08/31 with no growth to date. Cardiac cath reported clean coronary arteries. Patient has a past medical history significant for
bioprosthetic aortic valve replacement in 2015 for endocarditis. Presenting symptoms at the time was CVA. Patient recounts having lived in [place] for 12 years at that time with limited medical treatment availability. Patient had bioprosthetic
endocarditis (Strep mitis) in 2021 treated with a 6-week course of IV ceftriaxone. Patient currently chest pain-free and without shortness of breath.
Past Medical History
Past Medical History: Other
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
Aortic valve endocarditis May 2016
seizure disorder s/p septic embolic CVA ( on Keppra), last seizure December 2022
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
HTN
Hypercholesterolemia
Past Surgical History
Past Surgical History: Other
Bovine aortic valve replacement 06/06/2016 due to endocarditis
Dental History
last dental exam 06/2023 (cavity filled)
Family History
Mother: Still Living
Father: Still Living (CAD)
Social History
Alcohol: Occasional
Drug: None
Tobacco: Former Smoker (quit >10 years ago)
Personal: Single
Living: Alone
Employment: Employed ([employer]; in [employer] ([employer]
Allergies
Allergy/AdvReac Type Severity Reaction Status Date / Time
No Known Allergies Allergy Verified 09/01/23 02:24
Home Medications
Medication Instructions Recorded Confirmed Type
atorvastatin 40 mg tablet 40 mg PO DAILY High Cholesterol 10/29/16 09/01/23 History
magnesium oxide 400 mg PO DAILY Electrolyte 10/29/16 09/01/23 History
Repletion
metoprolol tartrate 25 mg tablet 12.5 mg PO BID Blood Pressure 10/29/16 09/01/23 History
ascorbic acid (vitamin C) 500 mg 1,000 mg PO DAILY Supplement 06/26/21 09/01/23 History
tablet (Vitamin C)
levetiracetam 500 mg tablet 500 mg PO BID@0800,1300 Seizures 06/26/21 09/01/23 History
multivitamin with folic acid 400 1 tab PO DAILY Supplement 06/26/21 09/01/23 History
mcg tablet (Tab-A-Miki)
Review of Systems
-
History Source: Patient
General: Reports No Symptoms
HEENT: Reports No Symptoms
Respiratory: Reports No Symptoms
Cardiac: Reports Chest Pain (on initial presentatin, none now)
Abdomen/GI: Reports No Symptoms
: Reports No Symptoms
Musculoskeletal: Reports No Symptoms
Skin: Reports No Symptoms
Neurological: Reports No Symptoms
Vascular: Reports No Symptoms
Physical Exam
Vital Signs
Temp 97.8 F 09/04/23 07:07
Temp route: Oral 09/04/23 07:07
Pulse 56 09/04/23 07:07
Rhythm: Normal sinus rhythm 09/03/23 19:25
With- Bundle Branch Block Confi 09/03/23 19:25
Resp Rate 16 09/04/23 07:07
Blood pressure LEFT upper extremity: 106/56 09/03/23 17:07
Blood pressure RIGHT upper extremity: 103/55 09/03/23 17:09
Blood pressure 103/47 09/04/23 05:24
Blood pressure extremity used: Right upper arm 09/04/23 07:07
Position: Lying 09/04/23 07:07
MAP (cuff-Sofía Monitor) 63 09/04/23 05:24
MAP 82 09/01/23 07:15
SaO2 94 09/04/23 07:07
Nasal Cannula flow liters per minute 2 09/01/23 07:15
Oxygen Mode of Delivery Room air 09/04/23 07:07
Acceptable pain level during hospitalization? 0 09/01/23 01:55
Can the patient verbally communicate their pain? Yes 09/03/23 15:45
Actual Weight 92.9 kg 09/04/23 05:44
Body Mass Index (BMI) 27.0 09/04/23 05:44
Labs
09/04/23 05:39
09/04/23 05:39
APTT 83.4 Sec (23.4-35.0) H 09/03/23 06:16
Hemoglobin A1c 5.3 % (4.0-5.6) 09/01/23 09:08
Troponin I 0.096 ng/ml H* 09/01/23 16:51
Zaj-R-Imdwxslwnxv Pept 1070 pg/ml 09/01/23 02:20
Exam
General: Well Developed, Well Nourished and Comfortable
HEENT: Normocephalic, Anicteric, Moist Mucous Membranes, PERRLA and EOMI
Respiratory: Clear
Cardiac: S1/S2, Regular Rhythm and Murmur (II/ AIDA RSB 2nd ICS with blowing diastolic III/ murmur radiating to base carotids and across precordium)
GI: Soft, Non Tender, Non Distended and Normal Bowel Sounds
Rectal: Deferred by Provider
Skin: Warm and Dry
Neuro: AO x 3, No Motor Deficits and Nonfocal/Grossly Intact
Extremities: Pulses (+2/4 DP and radial pulses B/L)
Lymph: No Lymphadenopathy
Psych: Calm
Assessment / Plan
-
38 year old male with mobile echodensity on prosthetic aortic valve and moderate/severe aortic regurgitation.�Moderate prosthetic valve stenosis.
Small echolucency seen on the ventricular side of the anterior leaflet. Mild to moderate eccentric mitral regurgitation.
- likely redo sternotomy AVR/MVR with Dr Celis on Sunday
- pre-op diagnostics pending: CUS, CT C/A/P for redo surgical planning
- needs anesthesia consult and consent
STS RISK SCORE: N/A for double valve
Data Reviewed
-
EKG: Report Reviewed by me and Discussed with Physician
Architectural Engineer: Report Reviewed by me and Discussed with Physician
Echo: Report Reviewed by me and Discussed with Physician
Radiology: Report Reviewed by me and Discussed with Physician
Labs: Labs Reviewed by me and Discussed with Physician
[2023-09-04 08:41] LABS: APTT 30.3 Sec (23.4-35.0)
--- NOTE | 2023-09-04 10:13 | W.PN.HOSP.TC ---
Today's Communication/Plan
-
For ALEJANDRO today
Assessment / Plan
Assessment / Plan
Assessment:
Chest pain
- resolved
- trending down trops; peak .117
- continue BB/ASA
- continue Statin; check lipids
- continue IV heparin - requires intensive monitoring
- Cardiac cath shows no CAD
GGO abnormality on CT
- CT: mild patchy bilateral ground-glass opacities
- Pulm evaluated, no specific intervention currently; repeat CT outpatient with follow up
- BNP 1090;
HX prosthetic AoV endocarditis
HX Streptococcus mitis/oralis bacteremia� in Jun 2021
Hx prior aortic valve endocarditis requiring valve replacement (2016; at [facility])
Bioprosthetic aortic valve replacement
- Neg BCx
- ID following
- ECHO shows large fairly large echodensity on the ventricular aspect of the bioprosthetic valve.� This may be present but underappreciated on the prior echocardiogram from December 2022.� Regardless, it is larger today.� Aortic insufficiency has
worsened to severe.� There is now moderate mitral regurgitation.
- For ALEJANDRO today
-CT surgery input noted-ongoing evaluation for redo valvular replacement.
HX septic embolic stroke
- continue ASA/Statin
DVT ppx: IV heparin
Code: Full
Anticipated Discharge: > 48 hours
Subjective/Interval History
-
Date of Service: September 04, 2023
No chest pain or SOB
Await ALEJANDRO
Objective Data
-
Labs:
Laboratory Results
09/04/23 09/04/23
05:39 08:19
WBC 7.7
Hgb 14.4
Hct 41.1
Plt Count 158
PT 14.0
INR 1.10
APTT 30.3
Sodium 135
Potassium 4.4
Chloride 109 H
Carbon Dioxide 24
BUN 19
Creatinine 1.1
Glucose 89
Calcium 8.9
Total Bilirubin 1.0
AST 32
ALT 64 H
Alkaline Phosphatase 58
Vital Signs:
Vital Signs
Temp Pulse Resp BP Pulse Ox
97.8 F 56 16 103/47 98
09/04/23 07:07 09/04/23 07:07 09/04/23 07:07 09/04/23 05:24 09/04/23 08:00
I&O
09/03/23 09/04/23 09/05/23
06:59 06:59 06:59
Intake Total 1040 / 1040
Balance 1040 / 1040
Review of Systems
-
Constitutional: Denies Fever
Respiratory: Denies Cough
Abdomen/GI: Denies Abdominal Pain, Nausea or Vomiting
Neuro: Denies Dizzy
Physical Exam
-
General: No Apparent Distress
HEENT: Moist Mucous Membranes
Respiratory: Clear to Auscultation
Cardiac: Regular Rhythm, S1/S2 and Murmur
GI: Soft
Neuro: AO x 3
Data Reviewed
-
Labs: Labs Reviewed by me
--- NOTE | 2023-09-04 10:15 | W.PN.CD ---
Addendum entered and electronically signed by Seferino Seymour MD 09/04/23 14:27:
I saw and examined the patient.
The LITIGATION ASSISTANT's note was reviewed and I agree with the note.
Comment: Overall, he appears well compensated. I discussed findings of ALEJANDRO with cardiac surgery and they are agreeable that he will need surgery sooner rather than later. In discussion with him he tells me that he needs to get a couple things
squared away prior to surgery. After discussion with cardiac surgery tentative plan for surgery early next week.
ALEJANDRO below:
CONCLUSIONS
�Mildly dilated LV with normal systolic function and no regional wall motion
�abnormalities..
�LV EF ejection fraction is 55 to 60% by visual estimation.
�Mild LVH.
�Normal RV size and function.
�Status post bioprosthetic aortic valve replacement.� There is severe
�regurgitation secondary to a flail bioprosthetic leaflet.� There is likely mild
�to moderate bioprosthetic stenosis.
�Severe mitral regurgitation with an eccentric posteriorly directed jet with
�Coanda effect, secondary to prolapsed A2 scallop of the anterior mitral valve
�leaflet.
�Compared to TTE from September 03, 2023, mechanism of aortic regurgitation is
�clarified on today's ALEJANDRO, as above, and mitral regurgitation appears worse and
�is severe on today's study compared to moderate to severe on prior.
Original Note:
Today's Communication / Plan
-
ALEJANDRO today
Impression / Plan
-
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
possibly tick borne illness), admitted with an episode of chest pain on the evening of 08/31/2023 with mildly elevated troponin.
Assembler Wire Mesh Gate: Dr. Edward Hodge
IMPRESSION/PLAN:
#Atypical chest pain
-Described as a 'gurgling', now resolved.
-Troponin peaked at 0.117.
-EKG shows 1st degree AVB and RBBB (progressed from prior EKG) with anteroseptal HI, age undetermined.
-Continue aspirin, atorvastatin, heparin gtt, metoprolol.
-Echocardiogram pending.
-Cardiac catheterization without CAD
#Hx of infectious endocarditis/bioprosthetic SAVR
-Follows with Dr. Hodge, states saw him 07/2023 and was stable.
-Blood cultures show NGTD.
-TTE from 12/2022 shows moderate , mild/moderate PVL.
-TTE yesterday with mobile echodensity (probably NCC, measuring 9 x 7 mm), with moderate to severe aortic regurgitation, gradients 54/31 mmHg
#Prior CVA
-Chronic, stable.
-Continue ASA/statin.
#Seizures:
-Chronic, stable.
-Levetiracetam/neurology follow up.
Subjective/Interval History:
No acute events.
No subjective complaints.
DATA:
CT Chest, 09/04/2023:
IMPRESSION:
There is no central pulmonary embolism.
Imaging for small peripheral pulmonary emboli is limited.
There is mild cardiomegaly with patchy groundglass airspace disease in both lungs which may be mild pulmonary edema or mild inflammatory airspace disease
TTE, 12/27/2022:
CONCLUSIONS
�-Left ventricular ejection fraction is 70-75%. Normal regional wall motion.
�-Normal right ventricular size and function.
�-There is small echodensity on the anterior mitral valve leaflet, which was
�seen before on previous study. Moderate, eccentric mitral regurgitation.
�-27 mm bioprosthetic aortic valve with peak/mean gradients of 51/35 mmHg. Mild
�to moderate paravalvular aortic regurgitation (PHT = 383 ms).
�-Mild to moderate tricuspid regurgitation. Estimated pulmonary artery pressure
�of 25-30 mmHg.
�-Sinus of Valsalva 3.9 cm. Ascending aorta is 4.1 cm.
�
�No significant change in overall cardiac function since the prior study of
�06/27/2019.� Transvalvular aortic gradients have slightly increased (previous
�peak/mean gradients were 34/21 mmHg).
Cardiac Catheterization, 08/17/23:
1.� Left dominant circulation with no coronary artery disease.
2.� Bioprosthetic aortic valve in place.
Physical Exam
Vital Signs/Labs
Vital Signs
Temp Pulse Resp BP Pulse Ox
97.8 F 56 16 103/47 98
09/04/23 07:07 09/04/23 07:07 09/04/23 07:07 09/04/23 05:24 09/04/23 08:00
09/03/23 09/04/23 09/05/23
06:59 06:59 06:59
Actual Weight 93 kg 92.9 kg
09/04/23 05:39
09/04/23 05:39
PT 14.0 Sec (11.4-14.6) 09/04/23 08:19
INR 1.10 09/04/23 08:19
APTT 30.3 Sec (23.4-35.0) 09/04/23 08:19
Triglycerides 66 mg/dl (10-149) 09/02/23 04:13
LDL Cholesterol, Calc 68 mg/dl 09/02/23 04:13
VLDL Cholesterol, Calc 13 mg/dl (0-30) 09/02/23 04:13
HDL Cholesterol 53 mg/dl 09/02/23 04:13
09/01/23
02:20
Guk-Z-Sdeuvfqvdwr Pept 1070
LAB Results
09/01/23 09/01/23 09/01/23
11:16 13:04 14:16
Troponin I Cancelled 0.117 H* D Cancelled
09/01/23
16:51
Troponin I 0.096 H*
Physical Exam
Constitutional: No acute distress and Comfortable
EENT: Anicteric and Moist mucous membranes
Cardiovascular: Rhythm & rate is regular, Systolic murmur present and S1S2 is normal
Respiratory: Respiratory effort normal and Lungs clear to auscul.
GI: Soft, Distention absent, Flat, Non tender and Normal bowel sounds
Neuro/Psych: AO x 3
Other: Skin (warm and dry)
Data Reviewed
-
Date of Service: September 04, 2023
Labs: Labs Reviewed by me
Old Records: Reviewed
--- NOTE | 2023-09-04 15:36 | CM ---
Chart reviewed. I spoke with the patient and his mother and the plan is for the patient to come back for surgery. Patient is independent of ADLS, lives on his parents property in a seperate [address], [address], [address]. Patient with no discharge needs.
Plan is for the patient to return home with no needs. CM to follow
--- NOTE | 2023-09-04 15:41 | W.PN.ID1 ---
Date of Service
Date of Service: September 04, 2023
Today's Communication
Repeat bcx's.
Observe off abx.
Assessment / Plan
# Severe AR with flail leaflet of bio-prosthetic AV with mild to moderate stenosis
# Severe mitral regurgitation
# hx bicuspid AV IE s/p bio-AVR (2015)
# hx of bio-AVR IE (2021) treated with 6 weeks CTX
-ALEJANDRO: No valvular vegetations, therefore unlikely infective endocarditis
-Admission blood cx's negative x 2 (no abx)
-Remains off abx.
-Repeat blood cx's in anticipation of valve surgery next week.
-From ID standpoint, OK to dc home and return for cardiac surgery.
Subjective / Review of Systems
Mom at bedside.
Wants to go home before cardiac surgery. He is pursuing his MATT and needs to take care of a few things.
Feels well overall.
Vital Signs / Physical Exam
Vital Signs
Vital Signs
Temp Pulse Resp BP Pulse Ox
97.6 F 66 18 102/55 93
09/04/23 12:50 09/04/23 12:42 09/04/23 12:50 09/04/23 07:08 09/04/23 12:50
Physical Exam
Constitutional: No Acute Distress
Cardiovascular: Regular Rate, S1/S2 and Murmur (througout)
Objective Data
Lab Data
Lab Results
09/04/23 05:39
09/04/23 05:39
PT 14.0 Sec (11.4-14.6) 09/04/23 08:19
INR 1.10 09/04/23 08:19
APTT 30.3 Sec (23.4-35.0) 09/04/23 08:19
Estimated Creat Clear 103 ml/min 09/04/23 05:39
Total Bilirubin 1.0 mg/dl (0.2-1.3) 09/04/23 05:39
AST 32 U/L (17-59) 09/04/23 05:39
ALT 64 U/L (0-50) H 09/04/23 05:39
Alkaline Phosphatase 58 U/L (38-126) 09/04/23 05:39
Most recent labs reviewed.
Micro Results:
09/04/23 14:48 Blood Culture - Pending
Blood/Venous
09/04/23 14:05 Blood Culture - Pending
Blood/Venous
09/01/23 05:39 Blood Culture - Preliminary
Blood/Venous No Growth in 72 hours- Final report to follow
09/01/23 05:39 Blood Culture - Preliminary
Blood/Venous No Growth in 72 hours- Final report to follow
09/01/[address]: There is no central pulmonary embolism. Imaging for small peripheral pulmonary emboli is limited.
There is mild cardiomegaly with patchy groundglass airspace disease in both lungs which may be mild pulmonary edema or mild inflammatory airspace disease.
09/01/23 CXR: negative
Care Review
Plan reviewed with: Physician (Dr. Gale)
--- NOTE | 2023-09-04 17:04 | W.PN.UPDATE ---
Update Note
Progress Note Update
I discussed Mr. Powell's case with cardiology as well as my partner, Dr. Celis. I reviewed his imaging, torn leaflet on his bioprosthetic AVR and prolapse of the AL at the A2/3 free margin with eccentric MR. It also appears to be a dehiscence of
the AVR as well. Recommended double valve surgery, mech AVR and repair of the mitral, if the mitral is deemed not repairable at time of operation, then would favor mechanical valve given his age. He is aware of the need for coumadin for
anticoagulation and is amenable. Since he is clinically stable, will plan to get all the work up necessary today and then discharge him with plans for surgery on 09/11 with me as a first case/morning start. He can call my office at any point if he
feels symptoms worsening.
Thank you for involving me in the care of this patient. Please feel free to contact me with any questions or concerns.
Gold Paige MD, MS
Cardiothoracic Surgeon
[facility]
This dictation was created using the Match dictation system. Please excuse any grammatical, typographical, or 'sound alike' errors.
--- NOTE | 2023-09-04 17:11 | W.DS.TRANS ---
DC Summary - Product Grader
-
Discharge Instructions:
Discharge Diagnosis/Procedures Worsening aortic regurgitation sec to flail
bioprosthetic AV
S/P cardiac catheterization
Diet Regular
Activity As tolerated
Driving Restrictions As prior to admission
Bathing Restrictions None
Instructions:
Stand-Alone Forms: DC Instructions- Cath/EP Lab
Changes to Home Medications: Yes
Discharge Medications:
DC Medications w/original date entered in [facility]
atorvastatin 40 mg tablet 40 mg PO DAILY High Cholesterol 10/29/16
magnesium oxide 400 mg PO DAILY Electrolyte Repletion 10/29/16
metoprolol tartrate 25 mg tablet 12.5 mg PO BID Blood Pressure 10/29/16
ascorbic acid (vitamin C) 500 mg tablet (Vitamin C) 1,000 mg PO DAILY Supplement 06/26/21
levetiracetam 500 mg tablet 500 mg PO BID@0800,1300 Seizures 06/26/21
multivitamin with folic acid 400 mcg tablet (Tab-A-Miki) 1 tab PO DAILY Supplement 06/26/21
aspirin 81 mg chewable tablet (Children's Aspirin) 81 mg PO DAILY #30 tabs 09/04/23
Home Medication Changes
New medication -aspirin
Pending Results: No
--- NOTE | 2023-09-04 18:15 | PTCARENOTE ---
Pt received this am with no c/o. OOB independently. Pt returned from ALEJANDRO alert and oriented but mildly drowsy. Pt seen by Dr. Paige to discuss upcoming surgery next week. Pt discharged to home with his mother. Discharge instructions given and
reviewed with good understanding.
--- NOTE | 2023-09-04 18:15 | PTCARENOTE ---
Pt received this am with no c/o of chest pain or sob. Room air sat 98%. Pt returned from ALEJANDRO alert and oriented but mildly drowsy. Pt seen by Dr. Paige for upcoming surgery. Pt discharged to home with his mother
--- NOTE | 2023-09-05 07:54 | W.DCSUMMARY ---
Addendum entered and electronically signed by Chuy Gale MD 09/05/23 08:06:
Date of discharge : 09/04/2023
Original Note:
Discharge Summary
Discharge Data
Date of Admission: 09/01/23
Date of Discharge: 09/05/23
-
Pending Results: Yes (carotid US result)
Hospital Course
Primary diagnosis:
Severe aortic regurgitation secondary to flail bioprosthetic leaflet
Moderate bioprosthetic aortic stenosis
Severe mitral regurgitation secondary to prolapse of A2 scallop of anterior mitral valve leaflet
Secondary diagnosis:
Bioprosthetic aortic valve replacement
Hospital course:
38-year-old man with a prior history of endocarditis and a bio prosthetic AVR in 2016 and who had a subsequent CVA in 2017 presented with episode of chest pain it lasted about 10 seconds he had some associated bubbling in his chest then decided to
come to ED. He had a troponin leak of 0.117.
Cardiology did a cardiac catheterization which showed nonobstructive CAD and had a ALEJANDRO which raised concern for mobile echodensity on the bioprosthetic AVR. There is moderate to severe arctic regurgitation on the moderate prosthetic valve stenosis.
His blood cultures was negative. He went on to get a ALEJANDRO which showed no vegetation but severe aortic regurgitation due to flail bioprosthetic leaflet. He also had severe mitral regurgitation and moderate aortic stenosis. He was not in acute
heart failure but is still clearly has failure. Cardiothoracic surgery were involved and they had a discussion with him about the need of a redo valve replacement and possibly need both aortic and mitral valve replacement. He is agreeable. He had
a screening CT chest abdomen and pelvis which showed no acute pathology. Also had a carotid ultrasound report of which was pending at the time of discharge.
The plan was to bring him next week Sunday for surgery.
Consultants on board:
Cardiology Dr Baptiste
CTS Dr. Paige
Discharge Plan
-
Patient Disposition: Home (Routine Discharge)
Discharge Diagnosis/Procedures: Worsening aortic regurgitation sec to flail bioprosthetic AV
S/P cardiac catheterization
Condition: Serious
Diet: Regular
Activity: As tolerated
Driving Restrictions: As prior to admission
Bathing Restrictions: None
Stand Alone Forms: DC Instructions- Cath/EP Lab
Referrals:
Neal Willingham DO [Family Provider] -
Edward Hodge MD [Non-Admitting Privileges] - in three to four weeks
Gold Paige MD [Active] - in less than 1 week
Prescriptions:
New
aspirin [Children's Aspirin] 81 mg Tablet,Chewable
81 mg PO DAILY Qty: 30 0RF
Continued
atorvastatin 40 MG tablet
40 mg PO DAILY
metoprolol tartrate 12.5 MG tablet
12.5 mg PO BID
magnesium oxide 400 MG tablet
400 mg PO DAILY
levetiracetam 500 MG tablet
500 mg PO BID@0800,1300
ascorbic acid (vitamin C) [Vitamin C] 500 MG tablet
1,000 mg PO DAILY
multivitamin with folic acid [Tab-A-Miki] 1 TABLET tablet
1 tab PO DAILY
Discharge Orders:
Discharge Patient (As Directed); Ordered 09/04/23
Ordered By: Chuy Gale
Care Plan Goals
Care Plan Goals:
Problem: Readiness for enhanced knowledge related to diagnosis and treatment plan
Goal: Understand your diagnosis and treatment plan needs, including medications if applicable.
Instructions: Know your diagnosis, underlying causes and treatment plan options, including medications if applicable. Consult with your health care team to learn about your diagnosis and treatment plan, including medications if applicable.
Discharge Date and Time
Discharge Date/Time: 09/04/23 18:20
== END 2023-09-04 18:20 | disposition home or self-care (01) | DRG 287 ==
LOC: IVU 06:07
PROVIDERS: Internal Medicine; Internal Medicine Cardiovascular Disease; Nurse Practitioner; ADMITTING PHYSICIAN Internal Medicine; ATTENDING PHYSICIAN Internal Medicine; CONSULT PHYSICIAN Internal Medicine Cardiovascular Disease; CONSULT PHYSICIAN Internal Medicine Critical Care Medicine; CONSULT PHYSICIAN Psychiatry & Neurology Neurology; EMERGENCY PHYSICIAN Emergency Medicine; FAMILY PHYSICIAN Family Medicine; OTHER PHYSICIAN Thoracic Surgery (Cardiothoracic Vascular Surgery)
PROC: B2111ZZ Fluoroscopy of Multiple Coronary Arteries using Low Osmolar Contrast (ICD-10-PCS; 2023-09-03)
PROC: B24BZZ4 Ultrasonography of Heart with Aorta, Transesophageal (ICD-10-PCS; 2023-09-04)
DX: T82.01XA Breakdown (mechanical) of heart valve prosthesis, initial encounter (principal); I5A Non-ischemic myocardial injury (non-traumatic); I25.10 Atherosclerotic heart disease of native coronary artery without angina pectoris; Y71.2 Prosthetic and other implants, materials and accessory cardiovascular devices associated with adverse incidents; Y92.9 Unspecified place or not applicable; Y83.8 Other surgical procedures as the cause of abnormal reaction of the patient, or of later complication, without mention of misadventure at the time of the procedure; E78.00 Pure hypercholesterolemia, unspecified; I10 Essential (primary) hypertension; R09.02 Hypoxemia; G40.909 Epilepsy, unspecified, not intractable, without status epilepticus; R73.03 Prediabetes; Z95.3 Presence of xenogenic heart valve; Z86.73 Personal history of transient ischemic attack (TIA), and cerebral infarction without residual deficits; Z11.52 Encounter for screening for COVID-19; Z82.49 Family history of ischemic heart disease and other diseases of the circulatory system; Z87.891 Personal history of nicotine dependence; Z86.79 Personal history of other diseases of the circulatory system
CPT/HCPCS: 70355; 71046; 71275; 74174; 80053; 80061; 82248; 83036; 83880; 84145; 84484; 85025; 85027; 85610; 85730; 86850; 86900; 86901; 87040; 87811; 93005; 93306; 93312; 93320; 93325; 93454; 93880; 99285; C1894; Q9967

== ENCOUNTER 2023-09-12 05:01 | Inpatient (IN) | payer BC, SELFPAY ==
[2023-09-07 12:01] VITALS: BMI 27.2
--- NOTE | 2023-09-07 12:16 | CM ---
Met with Mr. Powell and his mother in [facility]. He states prior to admission he resides in a second floor apartment attached to his parents home. HE states he has 22 steps to get to the apartment from the outside. He states he is on one level once
inside the apartment. He states prior to admission he was independent with ambulation and adls. He states he does not have any DME in the home. He states he has a prescription plan. He states his mother will be home to assist in his care if
needed. The discharge plan is to return to return home with his parents and a home visit by the Cardiothoracic Transitional Care Nurse when medically stable.
We reviewed pre-op and post-op routines. We reviewed the shower instructions. He has the soap, written instructions and the Cardiothoracic Surgery Educational Booklet. We also reviewed restrictions including sternal precautions and driving
restrictions. We discussed a home visit by the Cardiothoracic Transitional Care Nurse. He is agreeable to a home visit. The plan is for re-do AVR on Tuesday, September 12, 2023.
[2023-09-12] VITALS (13 sets, daily range): BP systolic 97–120; BP diastolic 57–81; BMI 27.5
[2023-09-12] MEDS: LOPRESSOR 25 MG PO (05:43)
[2023-09-12] MEDS: BACTROBAN 2% OINTMENT 1 APPLIC NASAL ×2 (05:43→19:56)
[2023-09-12] MEDS: MAGNESIUM OXIDE 500 MG PO (05:43)
[2023-09-12] MEDS: PROTONIX 40 MG PO (05:43)
--- NOTE | 2023-09-12 06:09 | PTCARENOTE ---
pt admitted to 2265. endorses 2 showers and NPO since midnight, full admission completed, med list, pt clipped and washed with CHG wipes. meds given. all questions answered. awaiting CVOR
--- NOTE | 2023-09-12 06:12 | W.CVOR.SURPR ---
CVOR Surgeon Immed Pre Op
-
I have examined this patient prior to performance of the scheduled procedure.
The patient's condition is unchanged from the time of the dictated/written History and
Physical and the patient is able to undergo the scheduled procedure.
We went over the details of Mr. Powell's previous surgery in 2016, including details of the subaortic patch that was required. We discussed my findings with him, including dehiscence of his previous valve likely at the previous patch site. He will
require a root reconstruction at time of redo AVR and MV repair. He understands that he has dilated cardiomyopathy with preserved function. He also understands that should the case become extremely difficult and long, that he may end up with a
biological valve in the aortic position so that we can provide ventricular support in the form of a VAD/5.5 Impella.
Plan: Redo sternotomy, explant of prior biological valve, patch reconstruction of the aortic root, mitral valve repair +/- replacement (with a mechanical prosthesis if needed) and AVR (mechanical prosthesis). He understands the need for lifelong
coumadin prophylaxis.
[2023-09-12 07:35] LABS: ACT+ - POC 98 Seconds (82-134)
[2023-09-12 07:39] LABS: Urine Albumin Negative (Neg - Trace); Urine Bilirubin Negative (Negative); Urine Character Clear (Clear); Urine Color Yellow; Urine Glucose Negative (Negative); Urine Ketone Negative (Negative); Urine Leukocyte Negative (Negative); Urine Nitrite Negative (Negative); Urine Occult Blood Negative (Negative); Urine Urobilinogen Negative (Neg - 1+)
[2023-09-12 07:41] LABS: B.E. - POC -2.5 mmol/L; Glucose - POC 100 mg/dl (65-99); HCO3 - POC 24 mmol/L (21-29); Hematocrit - POC 40 % PCV (42-52); Hemodilution- POC Yes; Hemoglobin Calculated - POC 13.6; Ionized Calcium - POC 1.22 mmol/L (1.12-1.27); O2 Saturation %Calculated-POC 96.4 5 (92-96); PCO2 - POC 45 mmHg (35-45); PO2 - POC 91 mmHg (80-100); Potassium - POC 4.2 mmol/L (3.6-5.0); Sodium - POC 141 mmol/L (135-145); pH - POC 7.33 (7.35-7.45)
--- NOTE | 2023-09-12 08:21 | CM ---
Reviewed chart. Mr. Tineo is in the operating room today. Prior to admission he resides in a second floor apartment attached to his parents home. He has twenty two steps to enter the apartment. Once inside he has a first floor set-up. Prior to
admission he was independent with ambulation and adls. He does not have any DME in the home. He has a prescription plan. His mother will be home to assist in his care if needed. Medical work-up in progress. The discharge plan is to return home
with his mother and a home visit by the Cardiothoracic Transitional Care Nurse when medically stable.
[2023-09-12 09:33] LABS: B.E. - POC 0.2 mmol/L; Glucose - POC 120 mg/dl (65-99); HCO3 - POC 26 mmol/L (21-29); Hematocrit - POC 38 % PCV (42-52); Hemodilution- POC Yes; Hemoglobin Calculated - POC 12.9; Ionized Calcium - POC 1.07 mmol/L (1.12-1.27); O2 Saturation %Calculated-POC 99.8 5 (92-96); PCO2 - POC 49 mmHg (35-45); PO2 - POC 259 mmHg (80-100); Potassium - POC 5.9 mmol/L (3.6-5.0); Sodium - POC 136 mmol/L (135-145); pH - POC 7.35 (7.35-7.45)
[2023-09-12 10:10] LABS: B.E. - POC -1.4 mmol/L; Glucose - POC 170 mg/dl (65-99); HCO3 - POC 23 mmol/L (21-29); Hematocrit - POC 39 % PCV (42-52); Hemodilution- POC Yes; Hemoglobin Calculated - POC 13.2; Ionized Calcium - POC 1.07 mmol/L (1.12-1.27); PCO2 - POC 39 mmHg (35-45); PO2 - POC 380 mmHg (80-100); Potassium - POC 6.3 mmol/L (3.6-5.0); Sodium - POC 135 mmol/L (135-145); pH - POC 7.39 (7.35-7.45)
[2023-09-12 10:20] LABS: ACT+ - POC 967 Seconds (82-134)
[2023-09-12 10:35] LABS: B.E. - POC -1.6 mmol/L; Glucose - POC 158 mg/dl (65-99); HCO3 - POC 23 mmol/L (21-29); Hematocrit - POC 40 % PCV (42-52); Hemodilution- POC Yes; Hemoglobin Calculated - POC 13.6; Ionized Calcium - POC 1.11 mmol/L (1.12-1.27); O2 Saturation %Calculated-POC 99.9 5 (92-96); PCO2 - POC 39 mmHg (35-45); PO2 - POC 299 mmHg (80-100); Potassium - POC 4.7 mmol/L (3.6-5.0); Sodium - POC 139 mmol/L (135-145); pH - POC 7.39 (7.35-7.45)
[2023-09-12 10:41] LABS: ACT+ - POC 722 Seconds (82-134)
[2023-09-12 11:00] LABS: B.E. - POC -1.7 mmol/L; Glucose - POC 112 mg/dl (65-99); HCO3 - POC 24 mmol/L (21-29); Hematocrit - POC 40 % PCV (42-52); Hemodilution- POC Yes; Hemoglobin Calculated - POC 13.6; Ionized Calcium - POC 1.14 mmol/L (1.12-1.27); O2 Saturation %Calculated-POC 99.9 5 (92-96); PCO2 - POC 42 mmHg (35-45); PO2 - POC 307 mmHg (80-100); Potassium - POC 4.1 mmol/L (3.6-5.0); Sodium - POC 142 mmol/L (135-145); pH - POC 7.36 (7.35-7.45)
[2023-09-12 11:04] LABS: ACT+ - POC 650 Seconds (82-134)
[2023-09-12 11:31] LABS: B.E. - POC -2.4 mmol/L; Glucose - POC 90 mg/dl (65-99); HCO3 - POC 25 mmol/L (21-29); Hematocrit - POC 39 % PCV (42-52); Hemodilution- POC Yes; Hemoglobin Calculated - POC 13.2; Ionized Calcium - POC 1.18 mmol/L (1.12-1.27); O2 Saturation %Calculated-POC 99.9 5 (92-96); PCO2 - POC 50 mmHg (35-45); PO2 - POC 330 mmHg (80-100); Sodium - POC 144 mmol/L (135-145)
[2023-09-12 11:32] LABS: ACT+ - POC 555 Seconds (82-134)
[2023-09-12 11:50] LABS: ACT+ - POC 519 Seconds (82-134)
[2023-09-12 12:02] LABS: B.E. - POC -5.4 mmol/L; Glucose - POC 98 mg/dl (65-99); HCO3 - POC 20 mmol/L (21-29); Hematocrit - POC 37 % PCV (42-52); Hemodilution- POC Yes; Hemoglobin Calculated - POC 12.7; Ionized Calcium - POC 1.07 mmol/L (1.12-1.27); O2 Saturation %Calculated-POC 99.9 5 (92-96); PCO2 - POC 39 mmHg (35-45); PO2 - POC 372 mmHg (80-100); Potassium - POC 4.1 mmol/L (3.6-5.0); Sodium - POC 143 mmol/L (135-145); pH - POC 7.32 (7.35-7.45)
[2023-09-12 12:14] LABS: ACT+ - POC 903 Seconds (82-134)
[2023-09-12 12:36] LABS: B.E. - POC -1.1 mmol/L; Glucose - POC 131 mg/dl (65-99); HCO3 - POC 23 mmol/L (21-29); Hematocrit - POC 35 % PCV (42-52); Hemodilution- POC Yes; Hemoglobin Calculated - POC 11.8; Ionized Calcium - POC 1.08 mmol/L (1.12-1.27); O2 Saturation %Calculated-POC 99.9 5 (92-96); PCO2 - POC 37 mmHg (35-45); PO2 - POC 316 mmHg (80-100); Potassium - POC 4.2 mmol/L (3.6-5.0); Sodium - POC 143 mmol/L (135-145)
[2023-09-12 12:40] LABS: ACT+ - POC 739 Seconds (82-134)
[2023-09-12 12:55] LABS: Glucose - POC 152 mg/dl (65-99); HCO3 - POC 21 mmol/L (21-29); Hematocrit - POC 35 % PCV (42-52); Hemodilution- POC Yes; Ionized Calcium - POC 1.04 mmol/L (1.12-1.27); O2 Saturation %Calculated-POC 99.9 5 (92-96); PCO2 - POC 36 mmHg (35-45); PO2 - POC 282 mmHg (80-100); Potassium - POC 4.8 mmol/L (3.6-5.0); Sodium - POC 143 mmol/L (135-145); pH - POC 7.37 (7.35-7.45)
[2023-09-12 13:01] LABS: ACT+ - POC 614 Seconds (82-134)
[2023-09-12 13:14] LABS: ACT+ - POC 579 Seconds (82-134)
[2023-09-12 13:55] LABS: B.E. - POC -4.3 mmol/L; Glucose - POC 109 mg/dl (65-99); HCO3 - POC 23 mmol/L (21-29); Hematocrit - POC 37 % PCV (42-52); Hemodilution- POC Yes; Hemoglobin Calculated - POC 12.7; Ionized Calcium - POC 1.26 mmol/L (1.12-1.27); O2 Saturation %Calculated-POC 99.7 5 (92-96); PCO2 - POC 53 mmHg (35-45); PO2 - POC 245 mmHg (80-100); Potassium - POC 3.5 mmol/L (3.6-5.0); Sodium - POC 146 mmol/L (135-145); pH - POC 7.25 (7.35-7.45)
--- NOTE | 2023-09-12 14:18 | W.PN.CT.SURG ---
CT Surgery Operative Note
-
CARDIAC SURGERY OPERATIVE REPORT
Preoperative Diagnosis: Dehiscence of previous bioprosthetic valve from prior study with patch with structural degeneration of the bioprosthesis resulting in severe Para and Intra valvular insufficiency, severe mitral valve sufficiency secondary to
degenerative disease, dilated cardiomyopathy
Postoperative Diagnosis: Same
Procedure(s) Performed:
1. Ultrasound-guided Seldinger access of the right common femoral artery and vein
2. Redo sternotomy with extensive adhesiolysis
3. Explant of prior bioprosthetic aortic valve
4. Implant of new mechanical aortic valve
5. Extensive aortic root reconstruction requiring a large annular patch
6. Radical mitral valve repair [2 pairs of Jackson-Kunal sutures to A2, free edge remodeling of the anterior leaflet, 28 mm band annuloplasty]
7. Placement of temporary atrial and ventricular pacing wires
8. Transesophageal echocardiography
9. Left atrial appendage ligation
Date of Surgery: 09/12/2023
Comorbidities:
1. Prior history of endocarditis requiring aortic valve replacement subannular patch
2. 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
3. Thrombocytopenia
4. Palpitations and chest pain
5. Severely dilated cardiomyopathy, LVEDD approximately 7 cm, chronic congestive heart failure
6. 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
7. Dehiscence of prior patch repair of the annulus resulting in severe paravalvular leak
Attending Surgeon: Gold Paige MD, MS
Assistants: Bebe Ly PA-C (present and necessary to digital sales assistant, retraction, suction, exposure, suture management, and wound closure under my direction)
Anesthesiology: Faizan Bridges MD and Mohamud Miller CRNA
Scrub and Circulating RNs: Génesis Cruz, FREDERICK, Alex Bush RN
Risk Management Analyst: Roma Waggoner CCP
Anesthesia: GETA
EBL: per perfusion records
Products: None
CPB Time: 241 minutes
Aortic Cross Clamp Time: 184 minutes
Indication(s) for Procedures: This is a 38-year-old male who recently presented to the hospital with chest pain, tightness and palpitations. He has a significant history for endocarditis in 2016 at which point he underwent urgent surgery that
included aortic valve replacement the bioprosthesis as well as a some annular patch for a root abscess. Reportedly, he did well from that admission and was discharged in the hospital but presented with recurrent endocarditis and stroke
approximately 1 year later. This was treated. My consultation with the patient he had severe dilated cardiomyopathy secondary to severe aortic valve insufficiency that was a combination of both perivalvular leak and intra valvular leak from
obstructive degeneration of the leaflets. Looking back to his 2021 imaging, it was apparent that he had dehiscence of his valve back then around the aortic patch and likely had AI for some time. He also had significant MR secondary to a flail
segment of the anterior leaflet at A2. Due to his severe cardiomyopathy, he was advised to undergo a redo surgery. We discussed both risk and benefits which she understood and accepted and so we proceed with surgery.
Aortic Valve Description: Severely diseased bioprosthetic valve, obstructive degeneration of the noncoronary leaflets with heavy calcium and tearing of the leaflet. There is also focal perforation of the Abe right coronary leaflet. There is
dehiscence of the valve along with the patch at the noncoronary cusp with a very large 2 cm track that traversed down into the LVOT. The left and right coronary ostia within normal anatomic positions. A total of 15 core knots were retrieved.
Mitral Valve Description: Thickening of the anterior leaflet of the mitral valve with elongated cords. The posterior leaflet appeared to be relatively normal. There was some dilation of the annulus. The anterior leaflet measures only 28 mm in the
longest dimension. There was significant cardiomyopathy with severe dilation of his left ventricle measuring approximately 7/6 cm and the end-diastolic end-systolic dimensions
Findings: Left ventricular dimensions were severely dilated albeit with preserved left ventricular ejection fraction of approximately 60%. Following surgery he was hyperdynamic with a cardiac index of 3.2-3.5 with an EF of approximately 70%. There
were no new regional wall motion abnormalities. His aortic valve was explanted and found to be severely diseased. There was dehiscence of the aortic valve and patch at the noncoronary cusp of the large tract heading into the LVOT that measured
approximately 2 cm. A total of 15 core knots were retrieved from the previous surgery and the valve along with the sewing cuff. The leaflets themselves were also heavily diseased with a tear at the noncoronary cusp and a perforation of the right
coronary cusp. The previous patch was then excised. A large 4.5 x 2 cm bovine pericardial patch was used to reinforce the pseudoaneurysm along the noncoronary cusp that extended towards the right subcommissural triangle. I then used a total of 8
Jackson-Kunal pledgeted 4-0 Prolene sutures to reinforce the patch circumferentially. The aortic valve was replaced with a 25 mm mechanical prosthetic valve oriented perpendicular to the mitral valve leaflets. The mitral valve was access via the left
atrium. There was an obvious flail segment at A2 with a dilated annulus and a short anterior leaflet. The anterior leaflet at A2 was tacked towards the posterior medial papillary muscle head using CV 4 Jackson-Kunal x 2. Of note, the papillary muscles
were significantly displaced from their normal anatomic positions due to dilated cardiomyopathy. A total of 10 nonpledgeted 2 Ethibond sutures were used to secure and 28 mm annuloplasty band with core knots. Free edge remodeling along A2/P1 and
A2/A3 was performed with 5-0 Prolene in order to promote a downward parachuting effect of the valve. Dynamic inflation of the left ventricle using saline demonstrated a competent valve. After coming off of cardiopulmonary bypass initially he was
very hyperdynamic with a cardiac index of 3.5 while on inotropic support. These were subsequently turned off and he was given time to settle down. The true mean aortic valve gradient was 6 mmHg with a 7 mmHg gradient across the mitral valve. This
was likely because of the displaced papillary muscle heads resulting in somewhat decreased effective orifice area. No products were administered in this case. He left the operating room on just Levophed without any inotropic support. Pressures
had settled down to the 40s with a systolic blood pressure in the 90s. Of note, the left atrial appendage was verified to be free of any thrombus or debris preoperatively. Found to be totally occlusive postoperatively. After given for protamine,
there was no residual mitral valve insufficiency and no systolic anterior motion of the mitral valve leaflets. There was inherent washing jets with the mechanical aortic valve and very trace PVL from suture needle holes at the patch that improved.
Specimen(s): Prior bioprosthetic aortic valve.
Prosthesis:
1. 28mm PhysioFlex Annuloplasty Band, SN [id number]
2. 35mm JOSEFA Clip, SN [id number]
3. 25mm ON-X Valve, SN [id number]
4. Bovine Pericardium, SN [id number]
5. CV 4 Goretex Neochords
Description of Procedure: The patient was taken to the operating room. Their identity and procedure to be performed were verified and they were positioned supine on the operating table. Induction via general anesthesia with endotracheal intubation
was performed and central venous access and arterial monitoring were inserted. A preoperative transesophageal echocardiogram was performed to assess cardiac function and valvular function. The patient was then prepped and draped from chin to feet in
a sterile fashion. A preoperative time-out was performed with all members of the team present. Ultrasound guided access using Seldinger technique and micropuncture access to the right common femoral artery and vein was performed. A midline chest
incision was performed along with redo median sternotomy using an oscillating saw. Laminar spreaders were used to separate the inferior portion of sternum followed by Arrington scissors to dissect and cut the posterior table. Rakes were used to elevate
each hemisternum and the heart was dissected free from the posterior table. Sternal retractor was placed and restart dissection at the ascending aorta to expose the cannulation site. Next the base of the heart was freed off the diaphragm and then
we followed our way laterally towards the right atrium. There were dense adhesions towards the right atrium to the pericardium which were lysed with scissors. Next the RV was from the posterior table and left hemithorax mobilizing most
the apex. The innominate vein was isolated. Full heparinization was given (a total of 60,000 units). The aortic cannulation site was chosen where it was soft, pliable, and free of calcium in the distal ascending aorta above the previous cannulation
site. Cannulation was performed with an arterial cannula in the ascending aorta, angled metal tip cannular in the superior vena cava and straight bendable cannula in the inferior vena cava. The arterial cannula line had an appropriate bounce and
correlating pressures. The ACT was confirmed to be over 400 and retrograde autologous priming was performed before commencing cardiopulmonary bypass. The pulmonary artery was away from the aorta to facilitate a clamp site. Sondergaard�s
groove was developed after creating the oblique sinus. A left ventricular vent was placed at the right superior pulmonary vein. At this point, with the heart decompressed, additional adhesiolysis performed vertically towards the apex and pulmonary
artery and left atrial appendage. Once the majority the heart was dissected free, the aortic cross-clamp was placed after decreasing the flow on the bypass and mean arterial pressure. A total of 1.2L initial combination dose of retrograde and
ostial antegrade Del-Nido cardioplegia solution was given and planned for re-dosing every 45 minutes as necessary. There was rapid electro-mechanical arrest of the heart at 600 cc of cardioplegia. The left ventricle was observed for distention on
echocardiogram and manual palpation. Cold slush was placed into a lap on the RV and we systemically cooled to 32 degrees centigrade.
Carbon dioxide was used to flood the field. We manually identified the location of the right coronary take off. An aortotomy was made approximately 2cm above the sinotubular junction approximately 1 cm above the previous suture line. The location of
both left and right coronary vessels were visualized in the root. There was an obvious dehiscence of the previous bioprosthetic valve and some annular patch repair and severe degeneration of the bioprosthetic valve itself. A number of core knots
were retrieved and the valve was explanted. The annulus was debrided of any remaining cuff material, pledgets, and pannus. The previous patch was excised revealing the pseudoaneurysm directed over the dome of the left atrium and anteriorly to the
mitral valve. A 4.5 x 2 cm patch was then fashioned and sewn into place using 4-0 Prolene with RB1 needle. The patch was also reinforced with #4-0 Prolene Jackson-Kunal pledgeted sutures circumferentially.
Next, the mitral valve was accessed via the left atrium at the intra-atrial groove followed by valve analysis. The mitral valve was repaired as described above. The left ventricular vent was repositioned across the mitral valve into the left
ventricular and the left atrium was closed with a 3-0 prolene.
I turned my attention back toward the root. A total of 10 Non-pledgeted 2-0 ethibond inverted annular sutures were placed [id number] circumferentially. These were brought through the sewing cuff of the prosthetic valve which as then parachuted
into place. The left and right coronary ostia were visualized and were unobstructed by the valve. A Cor-Knot device was used to secure the annular sutures. The valve was inspected and was well seated. The aortotomy was approximated with 4-0 prolene
in two layers. Next a root vent was inserted for de-airing purposes.
De-airing maneuvers were performed and temporary atrial and ventricular pacing wires were placed at the SVC/RA junction and base of the right ventricle, respectively. The patient was placed in a Trendelenburg position and flows on bypass were
lowered. The aortic cross clamp was removed and flows were slowly brought back up. The left atrial suture line was hemostatic. Transesophageal echocardiography revealed no evidence of systolic anterior motion and ventricular function was normal.
The AV prosthesis was well seated without significant PVL or AI, only the washing jets inherent with the device. Once de-airing was satisfactory the left ventricular and root vents were removed. After verifying acceptable parameters, we initiated
weaning from cardiopulmonary bypass. Once we were off cardiopulmonary bypass, the venous cannulas was clamped and removed sequentially. A test dose of protamine was administered and the patient was monitored for any adverse reaction before resuming
protamine. Once half of the protamine dose was delivered, pump suckers were turned off and the systolic blood pressure was lowered for aortic decannulation. The aortic cannula was removed and purse strings were tied down. All cannulation sites were
oversewn with a 4-0 prolene. The left atrial suture line was inspected and hemostasis was confirmed. Mediastinal hemostasis was obtained. Two #24 [place] drains were placed within the pericardium and a single #19 [place] drain to the right hemithorax.
The sternum was approximated with 4 #7 single and 3 #8 double stainless steel wires. Fascia was approximated with #1 vicryl suture. The subcutaneous, dermis and epidermis were closed in layers in a running fashion. The skin wound was cleansed and
dressed.
All instrument, sponge, and needle counts were confirmed to be correct x 2 at the end of the operation. The patient was transferred to the cardiac intensive care unit in critical but stable condition.
I, Dr. Gold Paige, was present, scrubbed for, and performed all critical elements of this procedure.
Gold Paige MD, MS
Cardiothoracic Surgeon
[facility]
This dictation was created using the [employer] dictation system. Please excuse any grammatical, typographical, or 'sound alike' errors
[2023-09-12 14:39] LABS: ACT+ - POC 120 Seconds (82-134)
[2023-09-12 14:57] LABS: Glucose - Point of Care 118 mg/dl (70-99)
[2023-09-12 15:04] LABS: B.E. -1.3 mmol/L; HCO3 24.8 mmol/L (21-28); Ionized Calcium 1.15 mMOL/L (1.15-1.33); O2 Saturation % 97.1 % (94-98); PCO2 46 mmHg (35-48); PO2 77 mmHg (83-108); Potassium 4.2 mMOL/L (3.5-5.1); Sodium 138 mMOL/L (136-145); pH 7.34 (7.35-7.45)
[2023-09-12 15:05] LABS: Hematocrit 36.4 % (39.0-52.0); Hemoglobin 13.2 g/dL (13.0-18.0); Platelet Count 133 10^3/uL (130-400)
[2023-09-12 15:06] LABS: Mixed Venous O2 Saturation 79.8 %
[2023-09-12] MEDS: NOVOLOG FLEXPEN SC ×2 (15:11→15:40)
[2023-09-12] MEDS: NEURONTIN PO ×2 (15:11→15:40)
[2023-09-12] MEDS: LIPITOR PO (15:11)
[2023-09-12] MEDS: NSS 500 IV (15:12)
[2023-09-12] MEDS: PACERONE PO ×2 (15:12→23:25)
[2023-09-12] MEDS: ANCEF 10 IV ×2 (15:12)
[2023-09-12] MEDS: KEPPRA IV (15:12)
[2023-09-12] MEDS: TYLENOL PO (15:12)
[2023-09-12 15:15] LABS: INR 1.45; PT 17.8 Sec (11.4-14.6)
[2023-09-12 15:16] LABS: APTT 29.9 Sec (23.4-35.0)
[2023-09-12 15:23] LABS: Blood Urea Nitrogen 23 mg/dl (9-20); Estimated Creatinine Clearance 103 ml/min; Glucose 113 mg/dl (70-99); Magnesium 2.9 mg/dl (1.6-2.3)
[2023-09-12] MEDS: VERSED 0.5 MG IV ×2 (15:25→15:45)
[2023-09-12 15:29] LABS: ACT+ - POC > 1003 Seconds (82-134)
[2023-09-12 15:29] LABS: ACT+ - POC > 1003 Seconds (82-134)
--- NOTE | 2023-09-12 15:30 | W.PN.CD ---
Addendum entered and electronically signed by Pop Shoemaker MD 09/12/23 17:00:
38 yo male with prior history of infectious endocarditis and bioprosthetic SAVR in 2015, who was recently discovered to have severe aortic regurgitation secondary to a flail bioprosthetic leaflet, mild-moderate bioprosthetic stenosis, and severe MR.
He is now admitted s/p explant of prior bioprosthetic aortic valve, implant of new mechanical aortic valve, extensive aortic root reconstruction requiring a large annular patch, radical mitral valve repair, and left atrial appendage ligation with
Dr. Paige 09/12/23.
He remains intubated and sedated. Wean drips and vent.
EKG shows new 1st degree AVB, and increase in QRS duration/IVCD. Trend tele.
Original Note:
Today's Communication / Plan
-
Close post-op monitoring and care with weaning of drips and vent as tolerated per CT surgery/CVICU protocol
Impression / Plan
-
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
to have severe aortic regurgitation secondary to a flail bioprosthetic leaflet, mild-moderate bioprosthetic stenosis, and severe MR. He is now s/p explant of prior bioprosthetic aortic valve, implant of new mechanical aortic valve, extensive aortic
root reconstruction requiring a large annular patch, radical mitral valve repair, and left atrial appendage ligation with Dr. Pagie 09/12/23. His primary Desilverizer has been Dr. Edward Hodge.
Prosthetic aortic valve with severe AR, mild to moderate bioprosthetic stenosis, severe MR:
-He is now s/p explant of prior bioprosthetic aortic valve, implant of new mechanical aortic valve, extensive aortic root reconstruction requiring a large annular patch, radical mitral valve repair, and left atrial appendage ligation with
Grecia 09/12/23.
-EF 55-60%
-on Levophed post-op
-pacer wires in place
-EKG SR inferior t-wave inversions 1st degree AVB, tele SR- follow telemetry
History of CVA:
-Continue ASA/statin.
Seizures:
-on Keppra as OP
Physical Exam
Vital Signs/Labs
Vital Signs
Temp Pulse Resp BP Pulse Ox
96.2 F L 59 15 110/70 95
09/12/23 15:00 09/12/23 14:58 09/12/23 14:58 09/12/23 14:58 09/12/23 15:07
09/11/23 09/12/23 09/13/23
06:59 06:59 06:59
Actual Weight 94.6 kg
09/12/23 14:50
PT 17.8 Sec (11.4-14.6) H 09/12/23 14:51
INR 1.45 09/12/23 14:51
APTT 29.9 Sec (23.4-35.0) 09/12/23 14:51
Magnesium 2.9 mg/dl (1.6-2.3) H 09/12/23 14:50
Physical Exam
Constitutional: No acute distress
Cardiovascular: Rhythm & rate is regular and Other (mechanical heart sounds present)
Respiratory: Other (CT's in place, ventilated)
Neuro/Psych: Other (sedated)
Other: Skin (midsternal incision intact)
Data Reviewed
-
Date of Service: September 12, 2023
EKG: Tracing Personally Visualized and interpreted (SR with inferior t wave inversions)
[2023-09-12] MEDS: ProAIR HFA INHALER 2 PUFF INH (15:33)
--- NOTE | 2023-09-12 15:45 | PTCARENOTE ---
pt received from [facility] @~1500, sedated on Precedex @0.5mcg/kg/hr, RASS -3/-4. nods appropriately. core temp 96.1F, bear hugger applied as ordered. SR w/ 1st degree AVB/occ. PVCs on the monitor, HR 60s. +click. A&V wires, pacer box off, competing
despite testing settings. SBP 80-110s, Levophed gtt running per protocol. PAP 30-40s-20s. CVP ~6-10. CI 2.9. palpable pulses, no edema. pt mechanically ventilated, ETT #8.0, 24cm@lip. SIMV 16, TV 550, PEEP increased from 5 to 7 per PEDIATRIC OPHTHALMOLOGIST. FIO2 100%.
POX 95%. lungs clear anteriorly, suctioned for small amount of thin clear oral and ET secretions. oral hygiene performed. CT x3, no air leak or crepitus noted. pt abdomen s/n, hypoactive BS. Hobbs in place, clear yellow urine. Hobbs care provided.
sternal incision BRO, approximated, surgical adhesive in place. chest tube site c/d/i. RFA sheath in place, LAKIA Malcolm at bedside to DC, MP held, fem stop placed by PA. RIJessica mcdaniel/brent maintained. L radial Enriqueta flushed, zeroed, and calibrated. PIV
x2. insulin gtt running per protocol. lab work drawn, EKG performed, CXR completed. see worklist for VS, I&O, and assessment.
[2023-09-12] MEDS: CALCIUM CHLORIDE 10% SYRINGE 50 ML IV (15:54)
[2023-09-12] MEDS: CALCIUM CHLORIDE 10% SYRINGE 50 MG IV (15:54)
[2023-09-12] MEDS: DILAUDID 0.5 MG IV ×3 (16:04→22:59)
--- NOTE | 2023-09-12 16:04 | W.PN.CARD.SR ---
Sheath/IABP Sheath Removal
Sheath Removal
Right Arterial Femoral:
Site appearance prior to sheath removal: Intact
Sheath removed by:: Physician assistant director of plant operations
Name of associate removing sheath: Gold Pack PA-C
Time of sheath removal: 15:23
Time hemostasis achieved: 15:33
Site appearance post sheath removal: Intact
Method of Hemostasis Post Sheath Removal: External Hemostasis Pad (Fem stop x 30 minutes) and Manual Pressure (Manual pressure x 15 minutes)
Name of device: Fem Stop
Dressing dry and intact?: Yes
Right Venous:
Site appearance prior to sheath removal: Intact
Sheath removed by:: Physician assistant director of plant operations
Name of associate removing sheath: Gold Pack PA-C
Time of sheath removal: 15:23
Time hemostasis achieved: 15:33
Site appearance post sheath removal: Intact
Method of Hemostasis Post Sheath Removal: External Hemostasis Pad (Fem stop x 30 minutes) and Manual Pressure (Manual pressure x 15 minutes)
Name of device: Fem Stop
Dressing dry and intact?: Yes
Comments: No issues, tolerated well.
[2023-09-12 16:13] LABS: Glucose - Point of Care 160 mg/dl (70-99)
[2023-09-12 16:19] LABS: B.E. -0.8 mmol/L; HCO3 24.3 mmol/L (21-28); O2 Saturation % 96.6 % (94-98); PCO2 41 mmHg (35-48); PO2 73 mmHg (83-108); pH 7.38 (7.35-7.45)
[2023-09-12 17:12] LABS: Glucose - Point of Care 121 mg/dl (70-99)
--- NOTE | 2023-09-12 17:19 | W.PN.UPDATE ---
Update Note
Progress Note Update
38 y/o male presents on 09/11 for an redo MVR/AVR with Dr. Paige
IV fluids: 1700
U.O.:� 675
UF:� 1000
Blood:� None
Wires:� A +V
Inotropes:� None
Pressors:� Levophed
Sedatives:� Precedex
�
NEURO: sedated on precedex, pupils +2mm B/L
RESP: #8OT; 24cm @ lip; 16/550/100/5 Lungs clear B/L. 2 mediastinal (10cc on arrival) and pleural (10cc on arrival) chest tubes to -20cm suction. Sanguineous drainage
CV: RRR +S1, S2, no S3, no�rub, no murmur. Dermabond to median sternotomy. RIJ w/[place] locked @ 50cm. PA 42/21; CVP 9; C.O 5.45/CI 3.1
ABD: round, soft, no BS
EXT: no edema, +2/4 DP pulses B/L, no femoral bruit, left radial A-line intact
: Hobbs with clear yellow urine
�
A/P: POD #0 s/p Radical mitral valve repair [2 pairs of [place]-Kunal sutures to A2, free edge remodeling of the anterior leaflet, 28 mm band annuloplasty] and explant of prior bioprosthetic aortic valve and implant of new mechanical aortic valve
ALEJANDRO: EF�NML
- wean and extubate
- will need instruction regarding antibiotic prophylaxis for dental and invasive procedures
- Once extubated will start ASA and then eventual ad terminal makeup operator AC for mechanical valve
- Wean levophed to MAPs >65
- Titrate FIO2 to sats >90%; extubated when able
- Monitor chest tubes for output and airleaks
- Follow up post-op labs
- Cardiology consulted
�
# acute surgical blood loss anemia-expected
- trend CBC �
�
# post-operative hyperglycemia
- continue insulin gtt x24hr
-Hgb A1c 5.3
�
#Hypertension
- start low dose BB when able
- home dose 25mg BID of metoprolol tartrate
# Hyperlipidemia
- resume�lipitor 40mg PO nightly when able
#Hx of Seizures
- Continue keppra 500mg BID IV while intubated and then convert to PO
[2023-09-12] MEDS: OFIRMEV 100 IV (17:23)
[2023-09-12 17:42] LABS: B.E. -1.6 mmol/L; HCO3 23.7 mmol/L (21-28); O2 Saturation % 99.6 % (94-98); PCO2 41 mmHg (35-48); PO2 152 mmHg (83-108); Potassium 4.7 mMOL/L (3.5-5.1); pH 7.37 (7.35-7.45)
--- NOTE | 2023-09-12 17:51 | PTCARENOTE ---
ABG drawn on SIMV settings. INFANT AND TODDLER TEACHER aware of results. per INFANT AND TODDLER TEACHER, pt placed on CPAP PS 5, PEEP 7. FIO2 40%. POX 94%. tolerating well. ofirmev given for pain.
[2023-09-12 18:05] LABS: Glucose - Point of Care 103 mg/dl (70-99)
--- NOTE | 2023-09-12 18:07 | CON.INTV ---
Consultation
Consultation Request
Date/Time Consultation Requested: 09/12/2023 - 1358
Date/Time Consultation Performed: 09/12/2023 - 1500
Requesting Provider: TO Gonzales
Performing Provider: Chase Sullivan MD
Reason for Consultation: post-op AVR and MV-repair
Medical History
-
Chief Complaint: Elective aortic valve replacement/mitral valve repair
History of Present Illness:
38-year-old male with a past medical history of aortic valve endocarditis requiring bovine prosthetic valve replacement and bioprosthetic valve endocarditis due to streptococcal mitis bacteremia (06/2021) treated with 6 weeks of IV ceftriaxone with
history of CVA who presents with elective aortic valve replacement and mitral valve repair. Of note in 2015 when he underwent aortic valve replacement he also had an annular patch for a root abscess. He unfortunately suffered recurrent
endocarditis and stroke approximately 1 year later that was treated. As per the cardiothoracic surgeon, patient has severe dilated cardiomyopathy secondary to severe aortic valve insufficiency combined with both perivalvular leak and intra valvular
leak from obstructive degeneration of the leaflets. He likely had dehiscence of his valve starting at least back in 2021 and has had aortic insufficiency for some time. He also has significant mitral regurgitation secondary to a flail segment of
the anterior leaflet of the A2. Due to his severe cardiomyopathy he was advised to undergo a redo surgery. Today, he underwent redo sternotomy with extensive adhesiolysis with explantation of his prior bioprosthetic aortic valve, implantation of a
new mechanical aortic valve, extensive aortic root reconstruction requiring a large annular patch, radical mitral valve repair and left atrial appendage ligation. There were no immediate complications seen the patient was transferred to the CVICU
postoperatively. Pattern Chart Writer service is now consulted for additional management/recommendations.
When I saw the patient he was in bed, intubated on pressure support 5, PEEP of 7, FiO2 40% and SpO2 95%. He is breathing at 21 breaths/min, with VTe of 530mL and PIP [id number]. Currently his BP is 102/51, PAP 40/21. He is on insulin drip at 1.2
units/hr and Levophed at 5mcg/min.
PMHx: History of Streptococcus bacteremia with prosthetic valve endocarditis (Jun 2021); Hx of AV endocarditis requiring bovine prosthetic valve replacement (2015); history of CVA, hyperlipidemia
PSHx: Bovine aortic valve replacement in May 2016 due to endocarditis
Past Medical History
Past Medical History: Other (Above as per HPI)
Past Surgical History: Other (Above as per HPI)
Social History
Tobacco: Non-smoker
Alcohol: Occasional
Drug: None
Personal: Single
Family History
Family History: Reviewed & Not Pertinent
Allergies / Home Medications
Allergies
Allergy/AdvReac Type Severity Reaction Status Date / Time
No Known Allergies Allergy Verified 09/06/23 10:12
Home Medications
�Medication �Instructions �Recorded �Confirmed �Last Taken �Type
atorvastatin 40 mg tablet 40 mg PO DAILY High Cholesterol 10/29/16 09/12/23 09/11/23 13:00 History
magnesium oxide 400 mg PO DAILY Electrolyte 10/29/16 09/12/23 09/11/23 20:00 History
Repletion
metoprolol tartrate 25 mg tablet 25 mg PO BID Blood Pressure 10/29/16 09/12/23 09/11/23 13:00 History
ascorbic acid (vitamin C) 500 mg 1,000 mg PO PRN PRN supplement 06/26/21 09/12/23 06/26/21 History
tablet (Vitamin C)
levetiracetam 500 mg tablet 500 mg PO BID@0800,1300 Seizures 06/26/21 09/12/23 09/12/23 02:50 History
multivitamin with folic acid 400 1 tab PO DAILY Supplement 06/26/21 09/12/23 09/11/23 19:30 History
mcg tablet (Tab-A-Miki)
Athletic Greens 1 dose PO DAILY Supplement 09/06/23 09/12/23 09/11/23 08:00 History
Kachava 1 dose PO DAILY Supplement 09/06/23 09/12/23 09/03/23 12:00 History
Review of Systems
-
Unable to Obtain full review of systems at this time due to: Patient Intubation
Vitals / Labs / Diagnostic Testing
Vital Signs
Temp Pulse Resp BP Pulse Ox
98.7 F 62 17 110/71 95
09/12/23 18:00 09/12/23 18:00 09/12/23 18:00 09/12/23 18:00 09/12/23 18:00
Lab Data
09/12/23 14:50
Laboratory Results
09/12/23 09/12/23 09/12/23
14:50 14:51 16:10
PT 17.8 H
INR 1.45
APTT 29.9
pH 7.34 L 7.38
pCO2 46 41
pO2 77 L 73 L
HCO3 24.8 24.3
O2 Delivery Level
09/12/23
17:35
PT
INR
APTT
pH 7.37
pCO2 41
pO2 152 H
HCO3 23.7
O2 Delivery Level
Microbiology
09/12/23 10:10 Valve Gram Stain - Preliminary
09/12/23 10:10 Valve Fungal Culture - Preliminary
Culture in progress.
Positive cultures are reported as soon as detected.
Final report to follow in four to five weeks.
Diagnostic Testing:
Physical Exam
-
HEENT: Normocephalic and Anicteric
Cardiovascular: S1/S2 and Peripheral Edema (negative)
Respiratory: Wheeze (negative), Rales (negative), Rhonchi (negative), Non-Labored Respirations and Other (ETT in place; mechanical breath sounds heard bilaterally)
GI: Soft, Non Distended and Non Tender
Neurology: Other (Sedated, easily arousable and following commands)
Skin: Warm and Dry
General: Comfortable and Sweats (negative)
Assessment
-
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
history of CVA who presents with elective aortic valve replacement and mitral valve repair. Of note in 2015 when he underwent aortic valve replacement he also had an annular patch for a root abscess. He unfortunately suffered recurrent
endocarditis and stroke approximately 1 year later that was treated. As per the cardiothoracic surgeon, patient has severe dilated cardiomyopathy secondary to severe aortic valve insufficiency combined with both perivalvular leak and intra-valvular
leak from obstructive degeneration of the leaflets. He likely had dehiscence of his valve starting at least back in 2021 and has had aortic insufficiency for some time. He also has significant mitral regurgitation secondary to a flail segment of
the anterior leaflet of the A2. Due to his severe cardiomyopathy he was advised to undergo a redo surgery. On 09/12/2023, he underwent redo sternotomy with extensive adhesiolysis with explantation of his prior bioprosthetic aortic valve,
implantation of a new mechanical aortic valve, extensive aortic root reconstruction requiring a large annular patch, radical mitral valve repair and left atrial appendage ligation. There were no immediate complications seen the patient was
transferred to the CVICU postoperatively. Pattern Chart Writer service is now consulted for additional management/recommendations.
Chronic medical conditions COMMUNICATIONS STATION MANAGER: History of Streptococcus bacteremia with prosthetic valve endocarditis (Jun 2021); Hx of AV endocarditis requiring bovine prosthetic valve replacement (2015); history of CVA, hyperlipidemia
Impression:
#Bioprosthetic aortic valve degeneration with severe aortic regurgitation with flail bioprosthetic leaflet s/p explantation of prior bioprosthetic aortic valve and implantation of mechanical aortic valve (POD #0)
#Severe mitral regurgitation s/p radical mitral valve repair (POD #0)
#Dehiscence of prior patch repair of the annulus resulting in severe paravalvular leak s/p extensive aortic root reconstruction requiring a large annular patch (POD#0)
#Postoperative pneumomediastinum
Plan:
Ventilator settings reviewed
FiO2 will be weaned to maintain SpO2 >90-94%
Minute ventilation will be adjusted
Arterial blood gases will be monitored
Spontaneous breathing trial will be attempted with hopeful extubation after anesthesia/sedation wear off
Daily CXR and monitor size of pneumomediastinum as well as air leak level from mediastinal chest tubes
Pulmonary artery catheter parameters will be followed
Pressors/antihypertensive/inotropes/diuretics will be provided as needed
Monitor chest tube output (right pleural and mediastinal x 2)
Monitor hemoglobin
Monitor platelet count and coags
Transfuse blood product if needed
CT surgery managing chest tubes
Monitor blood sugar with goal BG 140�180
Insulin drip per protocol
Aspiration precautions
VAP prevention protocol
DVT prophylaxis
Early nutrition
Early mobilization
Critical care statement: A total of 46 minutes of critical care time was provided for this patient today. This includes management of ventilator, spontaneous breathing trial, arterial blood gases, pressors, of unstable vital signs, evaluation of the
patient at bedside, reviewing the patient's pertinent medical records including radiographs, microbiology, laboratory evaluations, and discussion with primary team and critical care nursing.
Data:
CXR 09-12-2023:
Postop cardiothoracic surgery.
Small amount of air density along the left superior margin of the mediastinum, suggesting a small amount of pneumomediastinum. There is probably also a small amount of air extending into the left lower neck compatible with subcutaneous emphysema
within the left lower neck.
Lungs appear hypoinflated.
Enlargement of the cardiac silhouette. Vasculature appears slightly prominent, which could indicate elevated pulmonary venous pressures, but may also be on the basis of hypoinflation.
[2023-09-12 18:26] LABS: Hematocrit 35.7 % (39.0-52.0); Hemoglobin 13.1 g/dL (13.0-18.0); Platelet Count 147 10^3/uL (130-400)
[2023-09-12 18:27] LABS: B.E. -1.3 mmol/L; HCO3 23.7 mmol/L (21-28); O2 Saturation % 98.3 % (94-98); PCO2 40 mmHg (35-48); PO2 89 mmHg (83-108); pH 7.38 (7.35-7.45)
--- NOTE | 2023-09-12 18:30 | RESPNOTE ---
Patient extubated to a 6 liter nasal cannula following cpap trial and abg.
--- NOTE | 2023-09-12 18:38 | PTCARENOTE ---
ORANGE GROWER aware of CPAP ABG results, order to extubate. pt extubated @1830 to 6LNC, POX 96%. oriented x4, [place]. poor IS effort.
--- NOTE | 2023-09-12 19:00 | PTCARENOTE ---
report received from previous RN, walking rounds done. pt in bed, drowsy but oriented x4. pt c/o sternal incision pain. VSS. SR on monitor, HR 50's-60's. epicardial AV wires intact and off d/t inappropriate pacing. B/L radial and DP pulses present.
RIJ cordis + swan intact w KVOs infusing. last CI 2.46. Levo gtt infusing @ 4mcg. SBP 90'-100's. left radial art line intact. PAPs ~30's-40's/20's. CVP ~10. B/L breath sounds present. POX 96-98% on 2LNC. IS encouraged. CT x3 intact to -20cm wall
suction, drainage WNL, no air leak present. schofield catheter intact, draining clear yellow urine. UO adequate. hypoactive bowel sounds present. pt tolerating ice. insulin gtt infusing per glycemic protocol. all surgical sites stable, dressings CDI.
turning/repositioning pt Q2H and as needed. see worklist for full assessment, VS, and interventions. pt resting between care.
[2023-09-12 19:06] LABS: Glucose - Point of Care 109 mg/dl (70-99)
[2023-09-12] MEDS: ANCEF 5 IV (19:54)
[2023-09-12] MEDS: ZOFRAN 4 MG IV (19:55)
[2023-09-12] MEDS: KEPPRA 500 MG IV (19:55)
[2023-09-12] MEDS: SENOKOT-S 1 TABLET PO (19:55)
[2023-09-12] MEDS: LOW STRENGTH ASPIRIN 81 MG PO (20:09)
[2023-09-12 21:12] LABS: Glucose - Point of Care 122 mg/dl (70-99)
[2023-09-12] MEDS: ROXICODONE 5 MG PO (21:19)
[2023-09-12] MEDS: FLEXERIL 5 MG PO (21:19)
[2023-09-12] MEDS: TYLENOL 1000 MG PO (22:59)
[2023-09-12] MEDS: NEURONTIN 100 MG PO (22:59)
--- NOTE | 2023-09-12 23:00 | PTCARENOTE ---
no changes in assessment, pt VSS. SR/SB 50's-60's. CI >2. Levo gtt weaned off. POX 95% on 5LNC. CT output and UO WNL. insulin gtt maintained. all surgical sites stable. pt resting between care.
[2023-09-12 23:06] LABS: Glucose - Point of Care 111 mg/dl (70-99)
[2023-09-13] VITALS (23 sets, daily range): BP systolic 92–148; BP diastolic 47–94; BMI 27.4
[2023-09-13] MEDS: CORDARONE 103 MG IV (00:24)
[2023-09-13] MEDS: DILAUDID 0.5 MG IV ×2 (00:25→20:12)
[2023-09-13 00:31] LABS: B.E. -0.2 mmol/L; HCO3 24.8 mmol/L (21-28); Ionized Calcium 1.22 mMOL/L (1.15-1.33); O2 Saturation % 96.1 % (94-98); PCO2 41 mmHg (35-48); PO2 70 mmHg (83-108); Potassium 4.6 mMOL/L (3.5-5.1); pH 7.39 (7.35-7.45)
[2023-09-13 00:49] LABS: Magnesium 2.2 mg/dl (1.6-2.3)
[2023-09-13 01:15] LABS: Glucose - Point of Care 116 mg/dl (70-99)
[2023-09-13] MEDS: TORADOL 15 MG IV ×2 (02:48→12:07)
[2023-09-13 02:57] LABS: Glucose - Point of Care 114 mg/dl (70-99)
--- NOTE | 2023-09-13 03:00 | PTCARENOTE ---
pt VSS, no changes in assessment. SB 50's. CI >2. POX 96% on 5LNC. CT output and UO WNL. insulin gtt maintained. all surgical sites stable. AM labs drawn and sent. EKG done. pt resting between care.
[2023-09-13 03:04] LABS: Hematocrit 34.9 % (39.0-52.0); Hemoglobin 12.6 g/dL (13.0-18.0); Mean Corp Hgb Conc. 36.1 g/dL (33.0-37.0); Mean Corpuscular Hgb 30.2 pg (27.0-31.0); Mean Corpuscular Volume 83.7 fL (80.0-94.0); Mean Platelet Volume 10.7 fL (7.4-10.4); Platelet Count 138 10^3/uL (130-400); Red Blood Cell Count 4.17 10^6/uL (4.70-6.10); Red Cell Dist. Width 13.4 % (11.5-14.5); White Blood Cell Count 17.6 10^3/uL (4.8-10.8)
[2023-09-13 03:16] LABS: Blood Urea Nitrogen 24 mg/dl (9-20); Calcium 9.2 mg/dl (8.4-10.2); Carbon Dioxide 25 mmol/L (22-30); Chloride 106 mmol/L (98-107); Estimated Creatinine Clearance > 125 ml/min; Glucose 117 mg/dl (70-99); Magnesium 2.1 mg/dl (1.6-2.3); Potassium 4.7 mmol/L (3.5-5.1); Sodium 138 mmol/L (135-145); eGFR > 60.00
--- NOTE | 2023-09-13 03:23 | W.PN.CT ---
Today's Communication / Plan
-
-pod #1
-intermittent PVCs - resolved after Amio bolus, lytes ok
-CI 2.42, CO 5.30. Drips: Insulin. Levo is off at 11:30pm
-CT output: R pleur 130/300, 2 meds 80/180 in 12/24 hrs
-delined
-d/c insulin
-d/c Hobbs
-current meds: ASA, Amio, Lipitor, Keppra, Neurontin, Lidocaine patch. Held BB d/t bradycardia mid 50s. Coumadin to start on 09/12 am. Plans to start iv Heparin on 09/12 afternoon for mech AVR
-encourage IS, OOB
Assessment / Plan
-
- s/p Radical mitral valve repair (28mm PhysioFlex Annuloplasty Band) and explant of prior bioprosthetic aortic valve and implant of new mechanical aortic valve (25mm ON-X Valve); Redo sternotomy with extensive adhesiolysis; LAAE (35mm JOSEFA Clip) by
Dr. Paige on 09/12/23, pod #1
- Intraop ALEJANDRO: Left ventricular dimensions were severely dilated with LVEF approximately 60%. Following surgery, he was hyperdynamic with a cardiac index of 3.2-3.5 with an EF of approximately 70%. No new wma. The true mean aortic valve gradient
was 6 mmHg with a 7 mmHg gradient across the mitral valve. There was no residual mitral valve insufficiency and no systolic anterior motion of the mitral valve leaflets. JOSEFA was found to be totally occlusive postoperatively.
- Prior history of endocarditis requiring aortic valve replacement subannular [id number]
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
- HTN/HLD
- Thrombocytopenia 12/2022
- Palpitations and chest pain
- Severely dilated cardiomyopathy, LVEDD approximately 7 cm, chronic congestive heart failure
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
- Dehiscence of prior patch repair of the annulus resulting in severe paravalvular leak
- Seizures (last 12/2022)
- Former smoker
- Abnormal preop ECG: RAD, LVH with wide QRS and repolarization abnormality, PVCs
- Acute postop blood loss anemia - stable without transfusion
- Acute postop transient 1st degree AVB
- Acute postop atelectasis
- Acute postop hypovolemia with subsequent hypervolemia
- Acute postop intermittent frequent PVCs - tx with Amio bolus
Discussed patient care with: Nursing and Care Team
Subjective
Procedure
- s/p Radical mitral valve repair (28mm PhysioFlex Annuloplasty Band) and explant of prior bioprosthetic aortic valve and implant of new mechanical aortic valve (25mm ON-X Valve); Redo sternotomy with extensive adhesiolysis; LAAE (35mm JOSEFA Clip) by
Dr. Paige on 09/12/23
-
Date of Service: September 12, 2023
Objective Data
-
Lab Results
09/12/23 18:21
09/12/23 14:50
PT 17.8 Sec (11.4-14.6) H 09/12/23 14:51
INR 1.45 09/12/23 14:51
APTT 29.9 Sec (23.4-35.0) 09/12/23 14:51
Vital Signs
Vital Signs
Temp Pulse Resp BP Pulse Ox
97.9 F 57 18 104/63 97
09/12/23 23:00 09/12/23 22:00 09/12/23 22:00 09/12/23 22:00 09/12/23 21:45
CT Intake/Output/Weight
09/12/23 09/12/23 09/13/23
06:59 18:59 06:59
Intake Total 334.06 / 602.06 268.0 / 602.06
Output Total 620 / 1125 505 / 1125
Balance -285.94 / -522.94 -237.0 / -522.94
SaO2: 97
Physical Exam
-
General: Awake and AOx3
Cardiovascular: Regular rate & rhythm, Murmur (06/23 syst @ lsb) and Rub
Respiratory: Decreased Breath Sounds
Sternum: Stable
Incision: Clean, Dry and Dressing Intact
Extremities: No Edema and Other
Abdomen: soft, nontender, nondistended, + bowel sounds
Data Reviewed
-
Lab Results: Results Reviewed
Medications: Active Meds Reviewed
Chest X-Ray: Report Reviewed and Image Reviewed
ECG: Report Reviewed and Image Reviewed
--- NOTE | 2023-09-13 03:30 | PTCARENOTE ---
MAYRA kennedy and left radial art line d/c'd per orders without incident.
--- NOTE | 2023-09-13 04:00 | PTCARENOTE ---
pt assisted OOB to chair. weight obtained. VSS. pt resting comfortably.
[2023-09-13] MEDS: ANCEF 5 IV ×2 (04:55→12:07)
[2023-09-13 05:00] LABS: Glucose - Point of Care 117 mg/dl (70-99)
[2023-09-13 06:33] LABS: Glucose - Point of Care 111 mg/dl (70-99)
--- NOTE | 2023-09-13 07:27 | W.PN.ANS.POP ---
Anesthesia Post Operative
- Anesthesia Post Op Note
Vital Signs Stable-See Nursing Note: Yes
Airway Patent: Yes
Adequate Pain Control: Yes
Change in Mental Status: No
Current Postoperative Nausea & Vomiting: No
Anesthesia Complications: No
General Anesthetic Recall: No
Unplanned Admission: No
Post Op Hydration Adequate: Yes
[2023-09-13] MEDS: BACTROBAN 2% OINTMENT 1 APPLIC NASAL ×2 (07:35→20:10)
[2023-09-13] MEDS: NOVOLOG FLEXPEN 4 UNITS SC ×2 (07:36→12:07)
[2023-09-13 07:43] LABS: Glucose - Point of Care 94 mg/dl (70-99)
[2023-09-13] MEDS: NEURONTIN 100 MG PO ×3 (07:47→22:40)
[2023-09-13] MEDS: PACERONE 200 MG PO ×3 (07:48→22:40)
[2023-09-13] MEDS: MAGNESIUM OXIDE 500 MG PO ×2 (07:48→20:11)
[2023-09-13] MEDS: LIPITOR 40 MG PO (07:48)
[2023-09-13] MEDS: SENOKOT-S 1 TABLET PO ×2 (07:48→20:11)
[2023-09-13] MEDS: LOW STRENGTH ASPIRIN 81 MG PO (07:49)
[2023-09-13] MEDS: COUMADIN 2.5 MG PO (07:49)
[2023-09-13] MEDS: PROTONIX 40 MG PO (07:49)
[2023-09-13] MEDS: ROXICODONE 5 MG PO ×3 (07:50→19:50)
[2023-09-13] MEDS: TYLENOL 1000 MG PO ×3 (07:50→22:40)
[2023-09-13] MEDS: LIDOCAINE 4% PATCH TOPICAL (07:52)
--- NOTE | 2023-09-13 07:52 | PTCARENOTE ---
Patient received from nightshift nurse. Patient is alert and oriented x4, pleasant. Patient c/o 5/10 sternal incision pain, administered PRN pain medication as ordered. NSR/SB with LBBB (EKG confirmed). HR 50s-60s. Audible heart tones. Click
auscultated. V wire maintained and insulated. BP 121/80. Palpable pulses. +1 bilateral hand edema. RIJ cordis maintained with KVO. Insulin gtt maintained per critical care glycemic protocol. PIV x2 maintained. 4L NC maintained. Oxygen saturation
98%. Upon auscultation, lung sounds diminished at the bases. Shallow breaths. IS 500. Encouraged patient to work with the IS more, 10x/hr. CTx3 maintained to -20cm wall suction. MS CT x2 have small red drainage. RP CT has minimal red drainage.
Abdomen round. Hypoactive BS. Per patient, he has been passing gas. No BM. Anjel was d/c'ed early this AM, due to void by 1000. Sternal incision is approximated with surgical adhesive and open to air. R groin puncture dressing is clean, dry, intact.
Assist x1 OOB into chair. Will continue to monitor.
--- NOTE | 2023-09-13 08:25 | W.PN.INTV ---
Today's Communication / Plan
Recommendations
Up OOB as tolerated
Encourage incentive spirometer 10x/hr for at least 4 hrs a day
MAP >65
Pain control
Cardiac rehab consult
Daily CXR to monitor pneumomediastinum
Patient is now CVICU�telemetry status.� Network Operations Lead/Pulmonary service will now sign off.� Please reconsult if there are any additional questions/concerns, or if patient's respiratory status deteriorates.
Assessment
-
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
history of CVA who presents with elective aortic valve replacement and mitral valve repair. Of note in 2015 when he underwent aortic valve replacement he also had an annular patch for a root abscess. He unfortunately suffered recurrent
endocarditis and stroke approximately 1 year later that was treated. As per the cardiothoracic surgeon, patient has severe dilated cardiomyopathy secondary to severe aortic valve insufficiency combined with both perivalvular leak and intra-valvular
leak from obstructive degeneration of the leaflets. He likely had dehiscence of his valve starting at least back in 2021 and has had aortic insufficiency for some time. He also has significant mitral regurgitation secondary to a flail segment of
the anterior leaflet of the A2. Due to his severe cardiomyopathy he was advised to undergo a redo surgery. On 09/12/2023, he underwent redo sternotomy with extensive adhesiolysis with explantation of his prior bioprosthetic aortic valve,
implantation of a new mechanical aortic valve, extensive aortic root reconstruction requiring a large annular patch, radical mitral valve repair and left atrial appendage ligation. There were no immediate complications seen the patient was
transferred to the CVICU postoperatively. Network Operations Lead service is now consulted for additional management/recommendations.
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
Impression:
#Bioprosthetic aortic valve degeneration with severe aortic regurgitation with flail bioprosthetic leaflet s/p explantation of prior bioprosthetic aortic valve and implantation of mechanical aortic valve (POD #1)
#Severe mitral regurgitation s/p radical mitral valve repair (POD #1)
#Dehiscence of prior patch repair of the annulus resulting in severe paravalvular leak s/p extensive aortic root reconstruction requiring a large annular patch (POD#1)
#Postoperative pneumomediastinum (improved)
Plan:
Tolerated extubation
Maintain SpO2 >90-94%
Encourage incentive spirometry
Increase activity as tolerated
Aspiration precautions
Daily CXR and monitor size of pneumomediastinum as well as air leak level from mediastinal chest tubes
Pulmonary artery catheter and arterial line removed
Pressors have been weaned
Continue to monitor chest tube output (mediastinal x2; right pleural chest tube removed)
Follow hemoglobin
Continue to follow platelet count and coags
Transfuse blood product as needed to keep Hb>7, plt>50k
CT surgery managing chest tubes as well
Follow blood sugar with goal BG 140-180mg/dL
Insulin supplementation continues as needed
Early nutrition
Early mobilization
DVT prophylaxis
Patient is now CVICU�telemetry status. Network Operations Lead/Pulmonary service will now sign off. Thank you for allowing us to be involved in the care of this patient. Please reconsult if there are any additional questions/concerns, or if patient's
respiratory status deteriorates.
Reviewed the patient's pertinent medical records including radiographs, microbiology, laboratory evaluations, and discussion with primary team, and critical care nursing.
Total time spent today was 40 minutes for this encounter. Time includes reviewing laboratory test/imaging results, reviewing pertinent medical records, obtaining and reviewing medical history, performing an appropriate exam, ordering medications,
tests and procedures. Time also includes documentation of this encounter, coordinating patient care and communicating with other healthcare professionals. Total time does not include separately billed tests performed on this date of service.
Data:
CXR 09-12-2023:
Postop cardiothoracic surgery.
Small amount of air density along the left superior margin of the mediastinum, suggesting a small amount of pneumomediastinum. There is probably also a small amount of air extending into the left lower neck compatible with subcutaneous emphysema
within the left lower neck.
Lungs appear hypoinflated.
Enlargement of the cardiac silhouette. Vasculature appears slightly prominent, which could indicate elevated pulmonary venous pressures, but may also be on the basis of hypoinflation.
CXR 09-13-2023:
Decreased findings suggesting small volume left-sided pneumomediastinum.
Interval removal of endotracheal tube and Central pulmonary artery catheter.
No pneumothorax.
Subjective Dataa
Subjective Data
Date of Service:
Date of Service: September 13, 2023
Chief Complaint: Network Operations Lead Follow Up
Subjective:
Patient seen and evaluated this morning. Mediastinal chest tubes x [address]. BP 141/85, heart rate 61 and he is breathing at 18 breaths/min. He was weaned from 5 L/min nasal cannula overnight down to room air this morning. He is breathing
comfortably. Denies headache, shortness of breath, abdominal pain, fevers or chills. Mild postoperative chest pain.
Review of Systems
General: Other (12 point ROS performed and is negative unless mentioned above.)
Objective Data
Data Reviewed
Vital Signs / I&O / Oxygen:
Vital Signs
Temp Pulse Resp BP Pulse Ox
98.2 F 60 16 121/80 96
09/13/23 03:00 09/13/23 07:48 09/13/23 03:15 09/13/23 07:48 09/13/23 06:00
Intake and Output
09/12/23 09/13/23 09/14/23
06:59 06:59 06:59
Intake Total 863.56 / 863.56
Output Total 1440 / 1440
Balance -576.44 / -576.44
SaO2 [CPAP] 94
SaO2 [SIMV] 95
SaO2 96
Nasal Cannula flow liters per 4
minute
Physical Exam
General: Respiratory Distress (n), Comfortable and Chills (n)
HEENT: Normocephalic and Anicteric
Cardiovascular: S1-S2 and Peripheral Edema (n)
Respiratory: Clear, Wheeze (n), Crackles (n) and Rhonchi (n)
GI: Soft, Non Distended and Non Tender
Neurology: Awake, Alert and Tremors (n)
Skin: Warm and Dry
Labs/Micro/Reports
Lab Data
09/13/23 02:51
09/13/23 02:51
Laboratory Results
09/12/23 09/12/23 09/12/23
14:50 14:51 16:10
PT 17.8 H
INR 1.45
APTT 29.9
pH 7.34 L 7.38
pCO2 46 41
pO2 77 L 73 L
HCO3 24.8 24.3
O2 Delivery Level
09/12/23 09/12/23 09/13/23
17:35 18:21 00:17
PT
INR
APTT
pH 7.37 7.38 7.39
pCO2 41 40 41
pO2 152 H 89 70 L
HCO3 23.7 23.7 24.8
O2 Delivery Level
Microbiology
09/12/23 10:10 Valve Gram Stain - Preliminary
09/12/23 10:10 Valve Fungal Culture - Preliminary
Culture in progress.
Positive cultures are reported as soon as detected.
Final report to follow in four to five weeks.
[2023-09-13] MEDS: LASIX 20 MG IV (08:41)
[2023-09-13] MEDS: LOPRESSOR 12.5 MG PO ×2 (08:41→20:11)
--- NOTE | 2023-09-13 08:43 | W.PN.CD ---
Today's Communication / Plan
-
continue post op care
coumadin being directed by CT surgery
Impression / Plan
-
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
to have severe aortic regurgitation secondary to a flail bioprosthetic leaflet, mild-moderate bioprosthetic stenosis, and severe MR. He is now s/p explant of prior bioprosthetic aortic valve, implant of new mechanical aortic valve, extensive aortic
root reconstruction requiring a large annular patch, radical mitral valve repair, and left atrial appendage ligation with Dr. Paige 09/12/23. His primary Developmental Behavioral Physician has been Dr. Edward Hodge.
Prosthetic aortic valve with severe AR, mild to moderate bioprosthetic stenosis, severe MR:
-He is now s/p explant of prior bioprosthetic aortic valve, implant of new mechanical aortic valve, extensive aortic root reconstruction requiring a large annular patch, radical mitral valve repair, and left atrial appendage ligation by Dr. Paige
09/12/23.
-EF 55-60%
- stable in NSR
- coumadin being directed by CT
History of CVA:
-Continue ASA/statin.
Seizures:
-on Keppra as OP
Physical Exam
Vital Signs/Labs
Vital Signs
Temp Pulse Resp BP Pulse Ox
98.2 F 61 16 148/86 96
09/13/23 03:00 09/13/23 08:41 09/13/23 03:15 09/13/23 08:41 09/13/23 08:00
09/12/23 09/13/23 09/14/23
06:59 06:59 06:59
Actual Weight 94.6 kg 94.3 kg
09/13/23 02:51
09/13/23 02:51
PT 17.8 Sec (11.4-14.6) H 09/12/23 14:51
INR 1.45 09/12/23 14:51
APTT Cancelled 09/13/23 08:18
Magnesium 2.1 mg/dl (1.6-2.3) 09/13/23 02:51
Physical Exam
Constitutional: No acute distress
Cardiovascular: Rhythm & rate is regular
Respiratory: Wheeze Absent, Rhonchi Absent and Other (fien crackle right base)
GI: Soft and Non tender
Neuro/Psych: Alert
Data Reviewed
-
Date of Service: September 13, 2023
Medical Decision Making: Reviewed Test Results
Medical Tests (PFT, Pathology etc): Report Reviewed by me
[2023-09-13] MEDS: KEPPRA 500 MG PO ×2 (09:01→12:07)
[2023-09-13 09:12] LABS: Glucose - Point of Care 84 mg/dl (70-99)
[2023-09-13 11:47] LABS: Glucose - Point of Care 141 mg/dl (70-99)
--- NOTE | 2023-09-13 11:49 | PTCARENOTE ---
Vital signs stable. NSR with LBBB. HR 60s. BP 134/81. RIJ cordis maintained with KVO. Insulin gtt maintained per critical care glycemic protocol. PIV x2 maintained. Weaned down to RA. Oxygen saturation 94%. Patient worked with OT then RN ambulated
with patient in the hallway. CTx3 maintained to -20cm wall suction with small red drainage, RP < MS x2. Will continue to monitor.
[2023-09-13 13:32] LABS: Glucose - Point of Care 97 mg/dl (70-99)
[2023-09-13] MEDS: FERRLECIT 110 MG IV (14:06)
[2023-09-13] MEDS: HEPARIN 25000 UNITS/250 ML IV (14:07)
[2023-09-13] MEDS: NSS IV (14:15)
--- NOTE | 2023-09-13 14:16 | PTCARENOTE ---
Baseline PTT drawn per order. Heparin gtt initiated at 600 units/hr, per order. Will continue to monitor.
[2023-09-13 14:36] LABS: APTT 28.7 Sec (23.4-35.0)
[2023-09-13 15:28] LABS: Glucose - Point of Care 122 mg/dl (70-99)
[2023-09-13] MEDS: FLEXERIL 5 MG PO (16:02)
--- NOTE | 2023-09-13 16:11 | PTCARENOTE ---
Patient falling asleep in the chair, assisted back to bed. RP CT discontinued per order and per protocol. Patient tolerated. New dressing applied.
Vital signs stable. Patient c/o sternal discomfort, PRN Flexeril administered. NSR. HR 60s. BP 124/75. RIJ cordis maintained with KVO. Insulin gtt discontinued per protocol (hgb a1c 5.3, insulin gtt only needed for 24hrs). Changed to CVICU
telemetry status. Heparin gtt maintained at 600 units/hr, will check PTT around 1999. PIV x2 maintained. RA. Oxygen saturation 92%. MS CT x2 maintained to -20cm wall suction with small serosanguineous drainage. Voiding in urinal. Ambulating in room
and sharma with RN. Will continue to monitor.
--- NOTE | 2023-09-13 20:30 | PTCARENOTE ---
Patient received resting in bed. Patient A+A+Ox3. No neurological deficits noted. No c/o headache, dizziness or lightheadedness. Patient given Roxicodone 5mg PO, and then IV Dilaudid 0.5 mg for 10/10 pain - Sternum and back pain - Positive
relief provided. Room air. SaO2 92%. 2L HS. Mediastinal chest tubes (2) - Intact and patent - 50 ml red drainage - No air leak, tidaling or crepitus noted. Chest tube dressing intact. Sinus Rhythm with BBC. Heart rate 60's. Blood pressure
130/69 (89). No c/o chest pain, pressure or discomfort. AV Wires insulated. Normoactive bowel sounds. No BM. No c/o nausea. No vomiting. Voiding without difficulty. Right I.J. Cordis. IV Heparin infusing at 600 units/hr (6 ml/hr). No IV
Heparin related complications. Sternal incision intact and open to air - Surgical adhesive. Right groin dressing intact. Positive, palpable pulses. Assessment as documented.
[2023-09-13 20:48] LABS: APTT 38.7 Sec (23.4-35.0)
--- NOTE | 2023-09-13 21:25 | PTCARENOTE ---
PTT result 38.7. PA for CT Surgery, Cristian DORMAN-James, order to increase rate to 650 units/hr (6.5 ml/hr). PTT 6 hrs after rate change. Patient resting in bed. No further changes from previous assessment.
--- NOTE | 2023-09-13 23:00 | PTCARENOTE ---
Patient ambulated in hallway with minimal assistance. Steady gait. No c/o headache, dizziness or lightheadedness. Room air. SaO2 94%. Patient back in room. Bathroom to void. OOB to chair. No further changes from previous assessment.
[2023-09-14] VITALS (9 sets, daily range): BP systolic 129–153; BP diastolic 50–90; PULSE 62; O2SAT 96–98; BMI 28.0
[2023-09-14] MEDS: DILAUDID 0.5 MG IV (00:02)
[2023-09-14 03:46] LABS: Hemoglobin 11.3 g/dL (13.0-18.0); Mean Corp Hgb Conc. 35.3 g/dL (33.0-37.0); Mean Corpuscular Hgb 30.5 pg (27.0-31.0); Mean Corpuscular Volume 86.3 fL (80.0-94.0); Mean Platelet Volume 11.2 fL (7.4-10.4); Platelet Count 121 10^3/uL (130-400); Red Blood Cell Count 3.71 10^6/uL (4.70-6.10); Red Cell Dist. Width 13.8 % (11.5-14.5); White Blood Cell Count 16.5 10^3/uL (4.8-10.8)
[2023-09-14] MEDS: ROXICODONE 5 MG PO ×2 (03:53→11:08)
[2023-09-14] MEDS: NSS 500 IV (03:53)
[2023-09-14 04:00] LABS: INR 1.67; PT 19.8 Sec (11.4-14.6)
[2023-09-14 04:01] LABS: Blood Urea Nitrogen 28 mg/dl (9-20); Calcium 9.1 mg/dl (8.4-10.2); Carbon Dioxide 27 mmol/L (22-30); Chloride 98 mmol/L (98-107); Estimated Creatinine Clearance 103 ml/min; Glucose 132 mg/dl (70-99); Potassium 4.9 mmol/L (3.5-5.1); Sodium 131 mmol/L (135-145); eGFR > 60.00
--- NOTE | 2023-09-14 04:33 | W.PN.CT ---
Addendum entered and electronically signed by TO Gonzales 09/14/23 15:07:
CDI inquery:
#Hyponatermia
- will start 40mg IV lasix
-Repeat BMP in the AM
Original Note:
Today's Communication / Plan
-
-pod #2
-no issues overnight
-in and out of accelerated junctional rhythm this am - will hold BB
-follow ECG
-PTT 42 at 3:30 am. Heparin rate 650 units/hr. Plans to increase rate today for goal PTT 60-90
-got 2.5 mg Coumadin on 09/12. INR today 1.67- continue Coumadin for mech AVR
-CT output: 2 meds 110/240 in 12/24 hrs
-encourage IS, OOB
Assessment / Plan
-
- s/p Radical mitral valve repair (28mm PhysioFlex Annuloplasty Band) and explant of prior bioprosthetic aortic valve and implant of new mechanical aortic valve (25mm ON-X Valve); Redo sternotomy with extensive adhesiolysis; LAAE (35mm JOSEFA Clip) by
Dr. Paige on 09/12/23, pod #2
- Intraop ALEJANDRO: Left ventricular dimensions were severely dilated with LVEF approximately 60%. Following surgery, he was hyperdynamic with a cardiac index of 3.2-3.5 with an EF of approximately 70%. No new wma. The true mean aortic valve gradient
was 6 mmHg with a 7 mmHg gradient across the mitral valve. There was no residual mitral valve insufficiency and no systolic anterior motion of the mitral valve leaflets. JOSEFA was found to be totally occlusive postoperatively.
- Prior history of endocarditis requiring aortic valve replacement subannular [id number]
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
- HTN/HLD
- Thrombocytopenia 12/2022
- Palpitations and chest pain
- Severely dilated cardiomyopathy, LVEDD approximately 7 cm, chronic congestive heart failure
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
- Dehiscence of prior patch repair of the annulus resulting in severe paravalvular leak
- Seizures (last 12/2022)
- Former smoker
- Abnormal preop ECG: RAD, LBBB, LVH with wide QRS and repolarization abnormality, PVCs
- Acute postop blood loss anemia - stable without transfusion
- Acute postop transient 1st degree AVB
- Acute postop atelectasis
- Acute postop hypovolemia with subsequent hypervolemia
- Acute postop intermittent frequent PVCs - tx with Amio bolus
Discussed patient care with: Nursing and Care Team
Subjective
Procedure
- s/p Radical mitral valve repair (28mm PhysioFlex Annuloplasty Band) and explant of prior bioprosthetic aortic valve and implant of new mechanical aortic valve (25mm ON-X Valve); Redo sternotomy with extensive adhesiolysis; LAAE (35mm JOSEFA Clip) by
Dr. Paige on 09/12/23
-
Date of Service: September 14, 2023
Objective Data
-
Lab Results
09/14/23 03:27
09/14/23 03:27
PT 19.8 Sec (11.4-14.6) H 09/14/23 03:27
INR 1.67 09/14/23 03:27
APTT 42.0 Sec (23.4-35.0) H 09/14/23 03:27
Vital Signs
Vital Signs
Temp Pulse Resp BP Pulse Ox
97.7 F 62 16 141/77 94
09/13/23 22:40 09/14/23 04:00 09/13/23 22:40 09/14/23 03:20 09/13/23 22:40
CT Intake/Output/Weight
09/13/23 09/13/23 09/14/23
06:59 18:59 06:59
Intake Total 529.5 / 877.06 2326.0 / 2963.0 637.0 / 2963.0
Output Total 820 / 1440 465 / 775 310 / 775
Balance -290.5 / -562.94 1861.0 / 2188.0 327.0 / 2188.0
SaO2: 94
Physical Exam
-
General: Awake and AOx3
Cardiovascular: Regular rate & rhythm, No Murmurs and Rub
Respiratory: Rales (at bases b/l. No wheeze) and Decreased Breath Sounds
Sternum: Stable
Incision: Clean, Dry and Intact
Extremities: No Edema (2+ DP b/l)
Data Reviewed
-
Lab Results: Results Reviewed
Medications: Active Meds Reviewed
Chest X-Ray: Report Reviewed and Image Reviewed
ECG: Report Reviewed and Image Reviewed
--- NOTE | 2023-09-14 05:00 | PTCARENOTE ---
Patient OOB in chair. Patient A+A+Ox3. No neurological deficits noted. AM lab work collected and sent. EKG completed. Portable CXR completed. PTT 42.0. IV Heparin gtt rate remains at 650 units/hr (6.5 ml/hr). Roxicodone 5 mg PO for pain
management. Ambulating without difficulty. Assessment/Interventions as documented.
[2023-09-14] MEDS: TYLENOL 1000 MG PO ×3 (06:20→22:07)
--- NOTE | 2023-09-14 08:00 | PTCARENOTE ---
resumed care of patient from previous RN. walking rounds complted. AAOx3. VSS. No complaints of pain at this time. OOB in chair at time of assessment. SB with BBB and prolonged QT. possible junctional rhythm noted intermittently. AV Wires insulated.
EKG done and placed on chart. 92% RA. IS to 1000. Mediastinal cts x2 - Intact and patent. No air leak, tidaling or crepitus noted. Will possibly d/c this afternoon. +bowel sounds. yellow urine in urinal. IV Heparin infusing at 750 units/hr. PTT
drawn and sent. therapeutic x2. will redraw in AM per CAR WRECKER. Sternal incision intact and open to air. Right groin dressing intact. R IJ cordis and PIV intact. will continue to monitor.
[2023-09-14 08:24] LABS: APTT 41.7 Sec (23.4-35.0)
[2023-09-14] MEDS: LIPITOR 40 MG PO (08:27)
[2023-09-14] MEDS: BACTROBAN 2% OINTMENT 1 APPLIC NASAL ×2 (08:27→19:21)
[2023-09-14] MEDS: LASIX 40 MG IV (08:27)
[2023-09-14] MEDS: LOW STRENGTH ASPIRIN 81 MG PO (08:27)
[2023-09-14] MEDS: COUMADIN 4 MG PO (08:27)
[2023-09-14] MEDS: MAGNESIUM OXIDE 500 MG PO ×2 (08:27→19:22)
[2023-09-14] MEDS: PROTONIX 40 MG PO (08:28)
[2023-09-14] MEDS: LOPRESSOR 12.5 MG PO (08:29)
[2023-09-14] MEDS: SENOKOT-S 1 TABLET PO ×2 (08:29→19:22)
[2023-09-14] MEDS: NEURONTIN 100 MG PO ×3 (08:30→22:07)
[2023-09-14] MEDS: KEPPRA 500 MG PO ×2 (08:30→12:29)
--- NOTE | 2023-09-14 09:32 | W.PN.CD ---
Today's Communication / Plan
-
stable
cotninue dosingof coumadin as per CT surgery
Impression / Plan
-
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
to have severe aortic regurgitation secondary to a flail bioprosthetic leaflet, mild-moderate bioprosthetic stenosis, and severe MR. He is now s/p explant of prior bioprosthetic aortic valve, implant of new mechanical aortic valve, extensive aortic
root reconstruction requiring a large annular patch, radical mitral valve repair, and left atrial appendage ligation with Dr. Paige 09/12/23. His primary Palliative Care Specialist has been Dr. Edward Hodge.
Prosthetic aortic valve with severe AR, mild to moderate bioprosthetic stenosis, severe MR:
-He is now s/p explant of prior bioprosthetic aortic valve, implant of new mechanical aortic valve, extensive aortic root reconstruction requiring a large annular patch, radical mitral valve repair, and left atrial appendage ligation by Dr. Paige
09/12/23.
-EF 55-60%
- stable in NSR
- on IV Heparin and coumadin being dosed
- coumadin being directed by CT
History of CVA:
-Continue ASA/statin.
Seizures:
-on Keppra as OP
Physical Exam
Vital Signs/Labs
Vital Signs
Temp Pulse Resp BP Pulse Ox
98.2 F 64 16 134/75 92
09/14/23 08:00 09/14/23 08:29 09/14/23 03:20 09/14/23 08:29 09/14/23 08:00
09/13/23 09/14/23 09/15/23
06:59 06:59 06:59
Actual Weight 94.3 kg 96.4 kg
03/29/24 03:27
09/14/23 03:27
PT 19.8 Sec (11.4-14.6) H 09/14/23 03:27
INR 1.67 09/14/23 03:27
APTT 41.7 Sec (23.4-35.0) H 09/14/23 07:59
Magnesium 2.0 mg/dl (1.6-2.3) 09/14/23 03:27
Physical Exam
Constitutional: No acute distress
Cardiovascular: Rhythm & rate is regular and Other (mechanical S2)
Respiratory: Respiratory effort normal
GI: Soft
Neuro/Psych: Alert
Data Reviewed
-
Date of Service: September 14, 2023
Medical Decision Making: Reviewed Test Results
X-Ray/CT/US/MRI/NUC/PET: Report Reviewed by me
Medical Tests (PFT, Pathology etc): Report Reviewed by me
Labs: Labs Reviewed by me
[2023-09-14] MEDS: PACERONE 200 MG PO ×2 (09:43→15:11)
[2023-09-14] MEDS: LIDOCAINE 4% PATCH TOPICAL (09:43)
--- NOTE | 2023-09-14 12:00 | PTCARENOTE ---
d/c med CTx2 without issue. Medicated for sternal pain preemptively. resting.
[2023-09-14] MEDS: FLEXERIL 5 MG PO (12:31)
--- NOTE | 2023-09-14 14:40 | PN.CDI ---
CDI
- -
CDI:
Physician Documentation Request
Admit Date: 09/12/23 05:01
Dear Doctor Grecia,
Patient is s/p Radical mitral valve repair and explant of prior bioprosthetic aortic valve and implant of new mechanical aortic valve Redo sternotomy with extensive adhesiolysis; LAAE
Sodium resulted as follows:
Laboratory Tests
09/13/23 09/14/23
02:51 03:27
Sodium 138 131 L
Could you please provide a diagnosis that supports the above lab abnormalities and additional evaluation/ monitoring:
hyponatremia
abnormal lab value clinically insignificant
Other
Use of terms such as suspected, likely, concern for, or probable (associated with a specific diagnosis that is being evaluated, monitored, or treated as if it exists) are acceptable and can be coded in the inpatient setting, when documented at the
time of discharge.
Thank you,
Evon Moore RN, BSN
CDI Specialist
tiger text
Please use your independent medical judgment in providing your response.
--- NOTE | 2023-09-14 15:02 | CM ---
Reviewed chart. Met with and his mother to review discharge plans. He states he is feeling okay. He ambulated in the hallway today. We reviewed his appointment with Cardiology. Telephone call to Coumadin nurse at Dr. Baptiste to
updated. The Cardiothoracic Transitional Care Nurse will draw his first blood work for INR. Results to Dr. Baptiste. Prior to admission he resides in an second floor apartment attached to his parents home. He has 22 steps to get to his apartment.
Once inside he has a first floor set-up. Prior to admission he was independent with ambulation and adls. He does not have any DME. He has a prescription plan. His mother will be home to [facility] in his care if needed. Medical work-up in progress.
The discharge plan is to return home with his mothers support and a home visit by the Cardiothoracic Transitional Care Nurse when medically stable.
--- NOTE | 2023-09-14 16:00 | PTCARENOTE ---
patient walked halls x3 today.
[2023-09-14] MEDS: FERRLECIT 110 MG IV (16:45)
--- NOTE | 2023-09-14 17:55 | W.PN.UPDATE ---
Update Note
Progress Note Update
Patient noted to have junctional rhythm and stable blood pressure. EKG sent to cardiology, per Cards will hold Amio and BB and re-eval tomorrow morning. Dr. Paige notified and atrial pacing was attempted. However, patient was not sensing
appropriately.
[2023-09-14] MEDS: ROXICODONE 2.5 MG PO (19:37)
--- NOTE | 2023-09-14 20:00 | PTCARENOTE ---
Received pt from [facility]; Pt resting comfortably in chair; pt is AAOx4, complains of 4/10 pain, see MAR for pain management; NSR with BBB and possible junctional rhythm, VSS; heart sounds audible, radial and DP pulses palpable, no edema noted, temp
epicardial AV-wires are insulated; lungs CTA, diminished at b/l bases, spo2 93 on RA; +BS x4 quadrants, abdomen soft non tender; pt voiding clear yellow urine; surgical sites and dressing maintained; PIVx2 and right IJ cordis maintained; heparin
infusing per protocol; call [facility] within reach; will continue to monitor.
[2023-09-14] MEDS: DILAUDID 0.25 MG IV (20:59)
[2023-09-14] MEDS: MELATONIN 5 MG PO (22:42)
[2023-09-15] VITALS (8 sets, daily range): BP systolic 106–157; BP diastolic 65–126; PULSE 63; O2SAT 88–89; BMI 27.6
--- NOTE | 2023-09-15 | PTCARENOTE ---
Pt assessment unchanged; pt resting in bed; NSR with BBB on monitor; VSS; on going pain management with Dilaudid and oxycodone, see MAR; pt walked in halls x2 with RN on stand by, pt was very stead on feet, no lightheadedness or dizziness; call [facility]
within reach; will continue to monitor.
[2023-09-15] MEDS: DILAUDID 0.5 MG IV (01:00)
[2023-09-15] MEDS: FLEXERIL 5 MG PO (03:09)
[2023-09-15 03:49] LABS: Hematocrit 30.7 % (39.0-52.0); Hemoglobin 10.6 g/dL (13.0-18.0); Mean Corp Hgb Conc. 34.5 g/dL (33.0-37.0); Mean Corpuscular Hgb 30.4 pg (27.0-31.0); Mean Platelet Volume 11.2 fL (7.4-10.4); Platelet Count 118 10^3/uL (130-400); Red Blood Cell Count 3.49 10^6/uL (4.70-6.10); Red Cell Dist. Width 13.4 % (11.5-14.5); White Blood Cell Count 12.8 10^3/uL (4.8-10.8)
[2023-09-15 03:57] LABS: INR 2.59; PT 27.7 Sec (11.4-14.6)
[2023-09-15 04:19] LABS: Blood Urea Nitrogen 19 mg/dl (9-20); Calcium 8.8 mg/dl (8.4-10.2); Carbon Dioxide 29 mmol/L (22-30); Chloride 98 mmol/L (98-107); Estimated Creatinine Clearance > 125 ml/min; Glucose 114 mg/dl (70-99); Sodium 131 mmol/L (135-145); eGFR > 60.00
--- NOTE | 2023-09-15 04:30 | PTCARENOTE ---
Pt assessment unchanged; NSR with BBB; VSS; pt resting in chair; AM labs drawn and sent; EKG obtained; Heparin d/c'd; ongoing pain management, see MAR; call [facility] within reach; will continue to monitor.
--- NOTE | 2023-09-15 04:34 | W.PN.CT ---
Today's Communication / Plan
-
-No major issues overnight. Hemodynamically and neurologically intact
-D/C'd heparin gtt this AM @ 0440
-INR 2.59 after 2 doses 2.5 and 4.0 mg of Coumadin. INR was 1.67 yesterday, consider repeat @ ~ noon to help with next dosing
-Lower INR goal for ON-X valve, 1.5-2.5, may need to hold Coumadin today
-Monitor Platelets, 118K, down from 121K yesterday. Was 158K preop
-Monitor hyponatremia, 131 same as yesterday, was 135 preop. Cont. diuresis, will add fluid restriction
-Cardiology to f/u postop junctional rhythm, currently holding Amiodarone and BB per Cardiology
-Echo yesterday 09/13 showed a well seated mechanical AVR with mild aortic regurgitation, PG/MG of 17/10 mmhg, LVEF 50-55% with abnormal (paradoxical) septal motion
-D/C cordis
-Cont. current meds (ASA, Coumadin, Lipitor, Keppra)
-Encourage use of IS
-OOB into chair/Ambulate
-Home later today vs tomorrow
-Will need 2-view cxr and temporary pacer wires cut today if going home
Assessment / Plan
-
- s/p Radical mitral valve repair (28mm PhysioFlex Annuloplasty Band) and explant of prior bioprosthetic aortic valve and implant of new mechanical aortic valve (25mm ON-X Valve); Redo sternotomy with extensive adhesiolysis; LAAE (35mm JOSEFA Clip) by
Dr. Paige on 09/12/23, pod #3
- Intraop ALEJANDRO: Left ventricular dimensions were severely dilated with LVEF approximately 60%. Following surgery, he was hyperdynamic with a cardiac index of 3.2-3.5 with an EF of approximately 70%. No new wma. The true mean aortic valve gradient
was 6 mmHg with a 7 mmHg gradient across the mitral valve. There was no residual mitral valve insufficiency and no systolic anterior motion of the mitral valve leaflets. JOSEFA was found to be totally occlusive postoperatively.
- Prior history of endocarditis requiring aortic valve replacement subannular [id number]
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
- HTN/HLD
- Thrombocytopenia 12/2022
- Palpitations and chest pain
- Severely dilated cardiomyopathy, LVEDD approximately 7 cm, chronic congestive heart failure
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
- Dehiscence of prior patch repair of the annulus resulting in severe paravalvular leak
- Seizures (last 12/2022)
- Former smoker
- Abnormal preop ECG: RAD, LBBB, LVH with wide QRS and repolarization abnormality, PVCs
- Acute postop blood loss anemia - stable without transfusion
- Acute postop thrombocytopenia (stable without active bleed)
- Acute postop transient 1st degree AVB
- Acute postop atelectasis
- Acute postop hypovolemia with subsequent hypervolemia
- Acute postop intermittent frequent PVCs - tx with Amio bolus
- Acute postop junctional rhythm, Amiodarone and BB on hold per Cardiology
Discussed patient care with: Cardiology, Nursing, Respiratory Therapy, Pharmacy and Care Team
Subjective
Procedure
- s/p Radical mitral valve repair (28mm PhysioFlex Annuloplasty Band) and explant of prior bioprosthetic aortic valve and implant of new mechanical aortic valve (25mm ON-X Valve); Redo sternotomy with extensive adhesiolysis; LAAE (35mm JOSEFA Clip) by
Dr. Paige on 09/12/23
-
Date of Service: September 15, 2023
Pt c/o incisional pain, otherwise feels well. Ambulating halls without difficulty
Objective Data
-
Lab Results
09/15/23 03:31
09/15/23 03:31
PT 27.7 Sec (11.4-14.6) H 09/15/23 03:31
INR 2.59 09/15/23 03:31
APTT Cancelled 09/14/23 10:00
Vital Signs
Vital Signs
Temp Pulse Resp BP Pulse Ox
98.6 F 64 12 141/77 93
09/15/23 00:00 09/15/23 00:03 09/15/23 00:00 09/15/23 00:03 09/15/23 00:03
CT Intake/Output/Weight
09/14/23 09/14/23 09/15/23
06:59 18:59 06:59
Intake Total 670.0 / 2996.0 207.5 / 775.0 567.5 / 775.0
Output Total 520 / 985 2670 / 3670 1000 / 3670
Balance 150.0 / 2011.0 -2462.5 / -2895.0 -432.5 / -2895.0
SaO2: 93 (RA)
Physical Exam
-
General: Awake and AOx3
Cardiovascular: Regular rate & rhythm, No Murmurs, No Rub and Other (crisp mechanical valve click)
Respiratory: Decreased Breath Sounds (at bases)
Sternum: Stable
Incision: Clean, Dry, Intact and Dressing Intact
Extremities: No Edema
Data Reviewed
-
Lab Results: Results Reviewed
Medications: Active Meds Reviewed
Chest X-Ray: Report Reviewed and Image Reviewed
ECG: Report Reviewed and Image Reviewed
[2023-09-15 04:35] LABS: APTT 63.1 Sec (23.4-35.0)
[2023-09-15] MEDS: TYLENOL PO (06:00)
[2023-09-15] MEDS: ROXICODONE 5 MG PO (06:29)
--- NOTE | 2023-09-15 07:40 | PTCARENOTE ---
Patient received from operations supervisor 2nd shift resting oob in chair, ambulating ad alice in room. RIJ Cordis present, flushed. Epicardial A+V wires, insulated to chest wall. All procedural sites stable. Patient updated to plan of care for the day, in agreement.
See work list for full assessment and interventions performed.
--- NOTE | 2023-09-15 08:00 | W.PN.CD ---
Today's Communication / Plan
-
- Suggest: Hold BB and Amio
- Observe tele
- Usual post op care
Impression / Plan
-
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
have severe aortic regurgitation secondary to a flail bioprosthetic leaflet, mild-moderate bioprosthetic stenosis, and severe MR. He is now s/p explant of prior bioprosthetic aortic valve, implant of new mechanical aortic valve, extensive aortic
root reconstruction requiring a large annular patch, radical mitral valve repair, and left atrial appendage ligation by Dr. Paige 09/12/23. His primary Document Control Assistant has been Dr. Edward Hodge.
S/p mech AVR, MV repair
- Doing well postoperatively
- Echo noted
EP issues
- IVCD a bit wider than previously => heading towards LBBB
- Accelerated junctional rhythm
- 3 beats NSVT
- No AFib seen
- No AV block seen
- Suggest: Hold BB and Amio
- Observe
Post-op anemia
Post-op hyponatremia
Post-op atelectasis
Hx CVA
Hx Seizures
Subjective: Pain reasonably well controlled.
Physical Exam
Vital Signs/Labs
Vital Signs
Temp Pulse Resp BP Pulse Ox
99.1 F 69 16 124/66 91
09/15/23 07:30 09/15/23 07:30 09/15/23 07:30 09/15/23 03:44 09/15/23 07:38
09/14/23 09/15/23 09/16/23
06:59 06:59 06:59
Actual Weight 96.4 kg 95 kg
09/15/23 03:31
09/15/23 03:31
PT 27.7 Sec (11.4-14.6) H 09/15/23 03:31
INR 2.59 09/15/23 03:31
APTT 63.1 Sec (23.4-35.0) H 09/15/23 03:31
Magnesium 2.0 mg/dl (1.6-2.3) 09/15/23 03:31
Physical Exam
Constitutional: No acute distress
Cardiovascular: Rhythm & rate is regular, Pedal edema is absent and Rub absent
Respiratory: Respiratory effort normal, Crackles Present and Rhonchi Present
GI: Soft and Distention absent
Neuro/Psych: AO x 3 and Motor deficits absent
Data Reviewed
-
Date of Service: September 15, 2023
[2023-09-15] MEDS: LIDOCAINE 4% PATCH 1 PATCH TOPICAL (08:12)
[2023-09-15] MEDS: BACTROBAN 2% OINTMENT 1 APPLIC NASAL (08:12)
[2023-09-15] MEDS: SENOKOT-S 1 TABLET PO (08:12)
[2023-09-15] MEDS: NEURONTIN 100 MG PO (08:13)
[2023-09-15] MEDS: TYLENOL 650 MG PO (08:13)
[2023-09-15] MEDS: LOW STRENGTH ASPIRIN 81 MG PO (08:13)
[2023-09-15] MEDS: LIPITOR 40 MG PO (08:13)
[2023-09-15] MEDS: PROTONIX 40 MG PO (08:13)
[2023-09-15] MEDS: KEPPRA 500 MG PO ×2 (08:13→12:21)
[2023-09-15] MEDS: MAGNESIUM OXIDE 500 MG PO (08:13)
[2023-09-15] MEDS: LASIX 40 MG PO (08:40)
[2023-09-15 09:12] LABS: ALT (SGPT) 35 U/L (0-50); AST (SGOT) 52 U/L (17-59); Albumin 3.6 g/dl (3.5-5.0); Alkaline Phosphatase 52 U/L (38-126); Direct Bilirubin 0.1 mg/dl (0.0-0.4); Total Bilirubin 1.1 mg/dl (0.2-1.3); Total Protein 5.7 g/dl (6.3-8.2)
[2023-09-15 10:46] LABS: INR 2.44; PT 26.4 Sec (11.4-14.6)
--- NOTE | 2023-09-15 11:40 | PTCARENOTE ---
VS obtained, stable. MAYRA Ocasio d/c'd. Epicardial pacing wires d/c'd by LAKIA Pierson w/rylan RN assist in anticipation of d/c home this afternoon. Patient tolerated well. Ambulating room and unit ad alice.
[2023-09-15] MEDS: NSS IV (11:57)
[2023-09-15] MEDS: COUMADIN 2 MG PO (12:09)
[2023-09-15] MEDS: COUMADIN 1 MG PO (12:10)
--- NOTE | 2023-09-15 13:42 | PTCARENOTE ---
Discharge instructions thoroughly reviewed w/patient and mother, including follow up visits and medications, all questions answered. PIV removed. Patient and all belongings transported to waiting vehicle for d/c home with parents.
--- NOTE | 2023-09-15 15:17 | W.DCSUMMARY ---
Discharge Summary
Discharge Data
Date of Admission: 09/12/23
Date of Discharge: 09/15/23
-
Pending Results: No
Hospital Course
Primary care physician: Neal Willingham
Outpatient broach operator: Dr Edward Armenta
Inpatient consultants: Dr.James Baptiste
Procedures:
1. Redo sternotomy with explant of prior bioprosthetic aortic valve
2. Aortic valve replacement with 25 mm mechanical prosthetic valve
3. Extensive aortic root reconstruction requiring a large annular patch
4. Radical mitral valve repair and 28 mm band annuloplasty
5. Left atrial appendage ligation
Primary Diagnosis:
1. Severe bioprosthetic aortic valve insufficiency with dehiscence of prior patch repair of the annulus resulting in severe paravalvular leak
Secondary Diagnoses:
1. Severe mitral regurgitation
Prior history of endocarditis requiring aortic valve replacement and Subannular patch
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
Thrombocytopenia
Severely dilated cardiomyopathy, chronic congestive heart failure
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
HPI: Patient is a 38-year-old male who recently presented to the hospital with chest pain, tightness and palpitations. He had a significant history for endocarditis in 2016 he underwent urgent surgery that included aortic valve replacement with a
bioprosthesis as well as a annular patch for a root abscess. Reportedly, he did well from that admission and was discharged in the hospital but presented with recurrent endocarditis and stroke approximately 1 year later. This was treated. Initial
cardiothoracic surgery consultation revealed a patient with severe dilated cardiomyopathy secondary to severe aortic valve insufficiency that was a combination of both paravalvular leak and intra valvular leak from obstructive degeneration of the
leaflets. Upon review of earlier imaging from 2021 it was apparent that he had dehiscence of his valve back than around the aortic patch and likely had a for some time. He also had significant MR secondary to a flail segment of the anterior
leaflet at A2. Due to his severe cardiomyopathy he was advised to undergo a reoperative aortic valve replacement along with mitral valve repair. He continued to be aggressively managed medically and was discharged. Plan was to readmit for surgery.
Hospital course: On 09/12/2023 he was electively admitted to [facility] where he underwent redo sternotomy with mechanical aortic valve replacement with a 25 mmOn-X mechanical valve. The aortic root was patched with bovine pericardium. He
also underwent a radical mitral valve repair with a 30 mm annuloplasty band with P[place]-Kunal neocords and exclusion of the left atrial appendage with a 35 mm AtriClip. He tolerated the procedure well and was returned to the surgical intensive care
unit where he arrived in hemodynamically stable condition. He was initially supported on Levophed at 6, Precedex and insulin drips.
It should be noted he received no blood transfusions in the operating room or during his entire hospitalization at [facility].
He was able to be extubated early on the evening of surgery and his first night in the intensive care unit was uneventful. His drips were able to be weaned to off and on 09/13/2023 postoperative day #1 his pleural tube was able to be removed and he
was declined. After his monitoring lines were discontinued he was able to begin progressive cardiac rehabilitation. He did ambulate on postoperative day 1. He was started on a regimen of aspirin and beta-blockers along with heparin drip and
received 2.5 mg of Coumadin. Insulin drip was discontinued and he was downgraded to telemetry status.
Postoperative day #2 Lopressor and Amio were held because of junctional rhythm. His remaining chest tubes were able to be removed. He was diuresed with 40 mg of IV Lasix with good urine output. He was ambulating increased distances without
difficulty. He received 4 mg of Coumadin for an INR of 2.59.
Postoperative day #3 he continued in a accelerated junctional rhythm and amiodarone and beta-blockers were held. He was given 40 mg p.o. Lasix. He was now ambulating in the halls and was anxious for discharge. He was given 3 mg of Coumadin for an
INR of 2.44. Plan will be 3 mg of Coumadin daily and INR will be checked on September 16 by the transitional care nurses. At time of discharge his temperature was 98.8 heart rate 62 and regular blood pressure 130/65 and O2 sat was noted to be
93% on room air. He was given a full set of discharge instructions and he will be seen by her transitional care nurses after his arrival at home he was also given a follow-up appointment to see Dr. Paige in the office. His INR will be checked
September 16 and results called to our office. The INR goal will be 2-3 for 3 months along with 81 mg of aspirin. After 3 months the INR goal will be 1.5-2.0 along with aspirin 81 mg for life.
Prior to discharge he underwent echocardiogram which was performed on 09/14/2023. It showed normal left ventricular size and systolic function. Left ventricular ejection fraction was noted to be 50 to 55%. Mechanical aortic valve peak and mean
gradients were 17 and 10 mmHg. There was mild aortic regurgitation. Mitral valve repair present with mean gradient of 8 mmHg. No mitral regurgitation was seen.
He was safely able to be discharged late in the afternoon of 09/15/2023. He was instructed to take 3 mg of Coumadin 09/16/2023 and INR will be checked on September 16.
Home medication changes:
Discharge Plan
-
Patient Disposition: Home (Routine Discharge)
Discharge Diagnosis/Procedures: endocarditis/aortic valve replacement/mitral insufficiency/mitral valve repair/redo sternotomy
Condition: Fair
Diet: Low Fat and Low Sodium
Activity: No strenuous activity
Driving Restrictions: Not until seen by your Dr
Bathing Restrictions: OK to Shower
Blood Work: PT/INR on sundaySeptember 16 and call results to office
Other Services: Cardiac Rehab
Specialty Instructions: Weigh Daily- Call MD for wt gain/loss 3 lbs overnight/5 lbs in 1 week
Activity Restrictions/Additional Instructions:
ACTIVITY:
-No strenuous activity: no heavy lifting, pushing, pulling anything over 15 pounds for one month
-continue to use stairs as tolerated
DRIVING RESTRICTIONS:
-No driving for one month or until approved by your surgeon
WOUND CARE:
-Shower daily. Use soap & water.
-No lotions, creams or powders on incision area.
DIET:
-continue a low fat/low cholesterol diet.
-IF you are diabetic, continue carb controlled diet.
CARDIAC REHAB:
-Please make appointment to start in 5-6 weeks with your local hospital program. (See Cardiac Rehabilitation Discharge Booklet).
SPECIALTY INSTRUCTIONS:
-Weigh yourself daily. Call your physician for any weight gain/loss of 3 lbs overnight or 5 lbs in one week.
-REPORT any clicking noise or uneven appearance of your sternum to your surgeon immediately.
-If you smoke, you are instructed to quit. The [place] smoking hotline phone number is [phone]
Referrals:
CT Transitional Care Nurse [Outside] - in one to two days
(
The Cardiothoracic Transitional Care Nurse will call you to set up a visit in 1-2 days.)
[facility]. Cardiac Rehab [Outside] - 10/19/23 9:30 am
(Cardiac Rehab Orientation appointment is on 10/19/23 at 930 AM.
The Cardiac Rehab gym is located on the first floor of the [facility].)
Bebe Hernandez CRNP [Family Provider] - in four to six weeks (Please make an appointment in four to six weeks. )
Bryan Baptiste DO [Active] - 10/26/23 1:00 pm
Gold Paige MD [Active] - 10/18/23 2:15 pm
Additional Discharge Medication Instructions: coumadin dose 3mg daily and will be adjusted after PT/INR checked at lab
Prescriptions:
New
cyclobenzaprine 10 mg Tablet
5 mg PO Q8HPRN PRN (Reason: muscle spasm) Qty: 28 0RF
lidocaine 4 % Adhesive Patch,Medicated
1 patch topical DAILY Qty: 5 0RF
sennosides-docusate sodium [Stool Softener-Stimulant Laxat] 8.6-50 mg Tablet
1 tab PO Q12 Qty: 30 0RF
pantoprazole 40 mg Tablet,Delayed Release (Dr/Ec)
40 mg PO DAILY Qty: 30 1RF
aspirin [Children's Aspirin] 81 mg Tablet,Chewable
81 mg PO DAILY Qty: 60 3RF
oxycodone 5 mg Tablet
5 mg PO Q6HPRN PRN (Reason: moderate to severe pain) Qty: 28 0RF
acetaminophen 325 mg Tablet
650 mg PO Q4HPRN PRN (Reason: mild pain,headache,temp >101F ) Qty: 0 0RF
warfarin 1 mg tablet
1 mg PO DAILY Qty: 60 2RF
Rx Instructions:
Take one tab daily as instructed after INR checked at lab
warfarin 2 mg tablet
2 mg PO DAILY Qty: 30 3RF
Rx Instructions:
take one tab daily as instructed after INR checked at lab
furosemide [Lasix] 20 mg tablet
20 mg PO DAILY Qty: 14 2RF
Rx Instructions:
Take daily for 14 days
potassium chloride 10 mEq tablet,ER particles/crystals
10 meq PO DAILY Qty: 14 2RF
Continued
atorvastatin 40 MG tablet
40 mg PO DAILY
magnesium oxide 400 MG tablet
400 mg PO DAILY
levetiracetam 500 MG tablet
500 mg PO BID@0800,1300
ascorbic acid (vitamin C) [Vitamin C] 500 MG tablet
1,000 mg PO PRN PRN (Reason: supplement)
multivitamin with folic acid [Tab-A-Miki] 1 TABLET tablet
1 tab PO DAILY
Held
Athletic Greens
1 dose PO DAILY
Hold Instructions: Resume on 09/03/23.
Kachava
1 dose PO DAILY
Hold Instructions: Resume on 10/01/23.
Rx Instructions:
protein drink
Discontinued
metoprolol tartrate 12.5 MG tablet
25 mg PO BID
Discharge Orders:
Discharge Patient (As Directed); Ordered 09/15/23
Ordered By: Ramon Pierson
Care Plan Goals
Care Plan Goals:
Problem: Readiness for enhanced knowledge related to diagnosis and treatment plan
Goal: Understand your diagnosis and treatment plan needs, including medications if applicable.
Instructions: Know your diagnosis, underlying causes and treatment plan options, including medications if applicable. Consult with your health care team to learn about your diagnosis and treatment plan, including medications if applicable.
Problem: Readiness for enhanced knowledge related to diagnosis and treatment plan
Goal: Understand your diagnosis and treatment plan needs, including medications if applicable.
Instructions: Know your diagnosis, underlying causes and treatment plan options, including medications if applicable. Consult with your health care team to learn about your diagnosis and treatment plan, including medications if applicable.
Discharge Date and Time
Discharge Date/Time: 09/15/23 13:57
Print Language: TRISTANIAN
== END 2023-09-15 13:57 | disposition home or self-care (01) | DRG 220 ==
LOC: CVICU 05:01
PROVIDERS: Clinical Nurse Specialist Acute Care; Physician Assistant Medical; Physician Assistant Surgical; ADMITTING PHYSICIAN Thoracic Surgery (Cardiothoracic Vascular Surgery); CONSULT PHYSICIAN Internal Medicine Critical Care Medicine; FAMILY PHYSICIAN Nurse Practitioner Family
PROC: B24BZZ4 Ultrasonography of Heart with Aorta, Transesophageal (ICD-10-PCS; 2023-09-12)
PROC: 02UG0JZ Supplement Mitral Valve with Synthetic Substitute, Open Approach (ICD-10-PCS; 2023-09-12)
PROC: 5A1221Z Performance of Cardiac Output, Continuous (ICD-10-PCS; 2023-09-12)
PROC: 02L70CK Occlusion of Left Atrial Appendage with Extraluminal Device, Open Approach (ICD-10-PCS; 2023-09-12)
PROC: 02UX08Z Supplement Thoracic Aorta, Ascending/Arch with Zooplastic Tissue, Open Approach (ICD-10-PCS; 2023-09-12)
PROC: 02RF08Z Replacement of Aortic Valve with Zooplastic Tissue, Open Approach (ICD-10-PCS; 2023-09-12)
DX: T82.897A Other specified complication of cardiac prosthetic devices, implants and grafts, initial encounter (principal); D62 Acute posthemorrhagic anemia; I42.0 Dilated cardiomyopathy; J98.11 Atelectasis; E87.1 Hypo-osmolality and hyponatremia; Y83.1 Surgical operation with implant of artificial internal device as the cause of abnormal reaction of the patient, or of later complication, without mention of misadventure at the time of the procedure; D69.6 Thrombocytopenia, unspecified; Z86.73 Personal history of transient ischemic attack (TIA), and cerebral infarction without residual deficits
CPT/HCPCS: 88300; 93308; 36415; 71045; 80048; 80053; 81003; 82248; 82330; 82565; 82805; 82810; 82947; 82962; 83735; 84132; 84302; 84520; 85014; 85018; 85027; 85049; 85610; 85730; 86850; 86900; 86901; 86920; 87070; 87075; 87102; 87176; 87205; 93005; 93312; 93320; 93321; 93325; 94002; 94640; 97166; C1768; J2260; J2916; P9045

== ENCOUNTER 2023-11-16 17:28 | Outpatient (RCR) | payer BC, SELFPAY | END 2023-11-16 23:59 | disposition home or self-care (01) | LOC: CRHB 17:28 | PROVIDERS: ATTENDING PHYSICIAN Internal Medicine Cardiovascular Disease | DX: I35.1 Nonrheumatic aortic (valve) insufficiency (principal); I25.10 Atherosclerotic heart disease of native coronary artery without angina pectoris; Z95.4 Presence of other heart-valve replacement | CPT/HCPCS: 93797; 93798 ==

== ENCOUNTER → 2024-04-08 13:27 | Outpatient (REF) | payer BC, SELFPAY | LOC: RCS 13:27 | PROVIDERS: ATTENDING PHYSICIAN Thoracic Surgery (Cardiothoracic Vascular Surgery); FAMILY PHYSICIAN Family Medicine | DX: Z95.2 Presence of prosthetic heart valve (principal) | CPT/HCPCS: 71275; 93306; Q9967 ==

== ENCOUNTER → 2024-11-04 07:01 | Outpatient (REF) | payer BC, SELFPAY ==
[2024-11-04 09:08] LABS: Blood Urea Nitrogen 22 mg/dl (9-20); Calcium 9.3 mg/dl (8.4-10.2); Carbon Dioxide 26 mmol/L (22-30); Chloride 107 mmol/L (98-107); Glucose 89 mg/dl (70-99); Potassium 4.4 mmol/L (3.5-5.1); Sodium 139 mmol/L (135-145); eGFR > 60.00
== END ==
LOC: RCS 07:01
PROVIDERS: ATTENDING PHYSICIAN Nurse Practitioner Acute Care; FAMILY PHYSICIAN Family Medicine; OTHER PHYSICIAN Thoracic Surgery (Cardiothoracic Vascular Surgery)
DX: Z85.20 Personal history of malignant neoplasm of unspecified respiratory organ (principal); Z95.2 Presence of prosthetic heart valve; Z98.890 Other specified postprocedural states; Z01.810 Encounter for preprocedural cardiovascular examination
CPT/HCPCS: 36415; 71275; 80048; 93306; Q9967